=== PATIENT | female | born 1950 | race Caucasian/White ===

== ENCOUNTER 2025-01-23 16:41 | Inpatient (IN) ==
--- NOTE | 2025-01-23 16:47 | Emergency Department Note ---
Impression & Plan Fracture, humerus, proximal, Fall, Chronic anticoagulation, Hypocalcemia ED Provider Note NAME: BERNADETTE CASTELLANOS AGE: 74 SEX: F : 1950 ARRIVES VIA: Ambulance INFORMANT: [Patient][, ] ED PROVIDER(S): [Herbert Granado MD] CHIEF COMPLAINT: Fall, arm pain MEDICAL DECISION MAKING: Patient presents as an injury alert due to concern for fall and right arm pain. Primary and secondary surveys were completed. The patient was noted to have right shoulder and proximal arm pain. The patient has no head neck chest back or abdominal pain and no lower extremity pain or left upper extremity pain. Generally she requires any advanced imaging other than x-rays of the shoulder and humerus. Blood work was obtained along with an INR and the patient was ordered IV fentanyl 25 mcg and arm sling lidocaine patch and IV Ofirmev. Blood work shows a mild leukopenia with anemia with hemoglobin 9.2 with a normal platelet count. INR 2.4. Kidney function is unremarkable. Mild hypocalcemia 8.3. Upon reassessment patient had improvement in pain. Patient was noted to have an oblique fracture to the proximal humerus. I did speak with Adriel Carson PA-C with Dr. Bonner and after further discussion they recommend operative treatment which could be done inpatient versus outpatient. Patient lives by herself and is right-hand dominant. Patient would be significant risk at home likely incapable of doing many of her ADLs. I did speak with the on-call hospitalist service Dr. Hollingsworth and the patient was admitted to the medicine service. Orthopedic stated that the patient had an INR less than 1.8 the patient will be booked for an A3 case tomorrow morning. Patient was to be n.p.o. at midnight. These recommendations were conveyed to the inpatient hospitalist service. Discussion w/ other healthcare providers: Adriel Carson PA-C with Dr. Bonner orthopedics Dr. Hollingsworth inpatient medicine service Prior /Outside records reviewed: [none] Differential diagnosis: Fracture, dislocation, contusion, strain, sprain, ICH, hemothorax, intra- abdominal injury, anemia among other causes were considered. Diagnostics, as interpreted by me: ECG: [none] Cardiac monitoring: An order was placed for continuous cardiac monitoring. The monitor shows a rate of [] with [] rhythm. [Patient was placed on pulse oximetry] Medical decision rules: Nexus rule Imaging studies: [I informally interpreted the patient's right humerus x-ray does show proximal humerus fracture with oblique fracture with formal report to follow.] [] HPI: Patient presents due to concern for fall and arm injury. The patient was reportedly trying to get in her car when she fell striking the right shoulder and arm. The patient denies any head strike or LOC. She has had no head neck chest back or abdominal pain. No lower extremity pain and no left upper extremity pain. Patient does take Coumadin for known history of A-fib. The patient last took it this morning. Patient is right-hand dominant from the complaints of right shoulder pain. Patient has pain with range of motion and try to lift it. PAST MEDICAL HISTORY: [See Below] PAST SURGICAL HISTORY: [See Below] SOCIAL HISTORY: [See Below] HOME MEDICATIONS: [See Below] ALLERGIES: [See Below] VITALS: [See Below] PHYSICAL EXAMINATION: GENERAL: NAD, non-toxic. EYE EXAM: Normal conjunctiva. PERRL, no anisocoria and EOM's grossly intact w/o pain. Head: Normocephalic atraumatic. OROPHARYNX: Moist mucus membranes, grossly normal dentition. NECK: Trachea midline, no stridor. [Supple, no nuchal rigidity, no adenopathy, non-tender. No signs of meningismus. FROM of the neck with good chin to chest and neck extension.] No midline C-spine TTP LUNGS: Clear to auscultation. Normal chest wall mechanics. HEART: NSR, no MRG. ABDOMEN: Abdomen soft, non-tender, no masses, no rebound or guarding. BACK: No CVA TTP. No TTP. SKIN: No rashes and no bruising. UPPER EXTREMITIES: Upper extremities are grossly normal. 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 LOWER EXTREMITIES: Grossly normal, mild pretibial edema without calf pain or erythema. NEURO EXAM: A&O x3, cranial nerves II-XII grossly intact, normal speech, moves all 4 extremities. Past Med/Surg History Problem List (Updated 01/23/25 @ 19:45 by Herbert Granado MD) Hypocalcemia (Acute) Chronic anticoagulation (Acute) Fall (Acute) Fracture, humerus, proximal (Acute) GERD (gastroesophageal reflux disease) (Chronic) Homozygous for MTHFR gene mutation (Chronic) Osteoporosis (Chronic) Calculus of gallbladder (Chronic) Social History Smoking Status: Never smoker Preferred Language: Macedonian Communication Ability: Effective marital status: / current occupational status: retired Feels Safe at Home: Yes Allergies Allergies Allergy/AdvReac Type Severity Reaction Status Date / Time Fish Containing Products AdvReac Intermediate HEADACHE Verified 01/23/25 19:16 FROM SEAFOOD Home Meds Home Medications Medication Instructions Recorded Confirmed amlodipine 2.5 mg tablet 2.5 mg PO QAM 01/23/25 01/23/25 atorvastatin 40 mg tablet 40 mg PO QAM 01/23/25 01/23/25 cyanocobalamin (vitamin B-12) 1,000 mcg PO QAM 01/23/25 01/23/25 1,000 mcg tablet (Vitamin B-12) escitalopram oxalate 10 mg tablet 10 mg PO QAM 01/23/25 01/23/25 folic acid 1 mg tablet 1 mg PO QAM 01/23/25 01/23/25 furosemide 20 mg tablet 20 mg PO QAM 01/23/25 01/23/25 lisinopril 20 mg tablet 20 mg PO QAM 01/23/25 01/23/25 mirabegron 50 mg tablet,extended 50 mg PO QAM 01/23/25 01/23/25 release 24 hr (Myrbetriq) warfarin 5 mg tablet 2.5 mg PO 2XWK 01/23/25 01/23/25 warfarin 5 mg tablet 5 mg PO 5XWK 01/23/25 01/23/25 Results & Data (ED) Vital Signs Vital Signs - 24 hr 01/23/25 16:55 01/23/25 17:09 01/23/25 17:12 Temperature 36.8 C Temperature Source Skin Pulse Rate 75 60 Pulse Rate [Apical] 79 Respiratory Rate 20 20 Respiratory Effort / Characteristics Non-Labored Spontaneous Non-Labored Respiratory Depth Normal Normal Respiratory Pattern Blood Pressure 143/92 H Blood Pressure [Left Arm] 136/70 Blood Pressure Mean 109 Blood Pressure Mean [Left Arm] 92 Pulse Oximetry 92 93 Oxygen Delivery Method Room Air Room Air Oxygen Flow Rate Sepsis Recent Fever Within 48 Hours No Sepsis New/Unexplained Change in Mental Status No Sepsis Action Taken by Nursing No Action Required 01/23/25 17:30 01/23/25 18:00 01/23/25 19:00 Temperature Temperature Source Pulse Rate Pulse Rate [Apical] 76 58 L 54 L Respiratory Rate 20 18 19 Respiratory Effort / Characteristics Non-Labored Spontaneous Non-Labored Non-Labored Respiratory Depth Normal Normal Normal Respiratory Pattern Regular Blood Pressure Blood Pressure [Left Arm] 125/79 134/95 133/79 Blood Pressure Mean Blood Pressure Mean [Left Arm] 94 108 97 Pulse Oximetry 94 92 93 Oxygen Delivery Method Room Air Room Air Nasal Cannula Oxygen Flow Rate 2 Sepsis Recent Fever Within 48 Hours Sepsis New/Unexplained Change in Mental Status Sepsis Action Taken by [facility] Medications Current Medication List: was personally reviewed by me Laboratory Data Attestation: I reviewed the patient's lab results. 01/23/25 17:01 01/23/25 17:01 Lab Results 01/23/25 Range/Units 17:01 WBC 4.41 L (4.8-10.8) K/ul RBC 3.56 L (4.20-5.40) M/uL Hgb 11.2 L (12.0-16.0) g/dl Hct 33.9 L (37.0-47.0) % MCV 95.2 (80.0-100.0) fL MCH 31.5 (25.0-34.0) pg MCHC 33.0 (32.0-36.0) g/dL RDW Std Deviation 46.5 H (36.4-46.3) fL RDW Coeff of Guido 13.2 (11.5-14.5) % Plt Count 166 (130-400) K/uL MPV 10.2 (9.4-12.4) fL Immature Gran % (Auto) 0.9 % Neut % (Auto) 55.8 % Lymph % (Auto) 33.3 % Finney % (Auto) 7.5 % Eos % (Auto) 1.8 % Baso % (Auto) 0.7 % Neut # (Auto) 2.46 (1.40-6.50) K/uL Lymph # (Auto) 1.47 (1.20-3.40) K/uL Finney # (Auto) 0.33 (0.11-0.59) K/uL Eos # (Auto) 0.08 (0.00-0.50) K/uL Baso # (Auto) 0.03 (0.00-0.20) K/uL Immature Gran # (Auto) 0.04 (0.01-0.20) K/uL PT 24.0 H (9.0-12.0) Seconds INR 2.4 H (0.9-1.1) Sodium 143 (136-145) mmol/L Potassium 3.7 (3.5-5.1) mmol/L Chloride 108 H (98-107) mmol/L Carbon Dioxide 32 (21-32) mmol/L Anion Gap 3 (3-11) BUN 16 (6-23) mg/dl Creatinine 0.88 (0.6-1.2) mg/dl Est Cr Clr Drug Dosing 78.6 ml/min eGFR 68.49 BUN/Creatinine Ratio 18.2 (10-20) Glucose 120 H (70-99(Fasting)) mg/dl Calcium 8.3 L (8.6-10.3) mg/dl Administered Medications Discontinued Medications Fentanyl Citrate (Fentanyl Citrate Pf 100 Mcg/2 Ml Vial) 25 mcg IV NOW STA Stop: 01/23/25 16:54 Last Admin: 01/23/25 17:04 Dose: 25 mcg Documented By: SADI Acetaminophen (Ofirmev) 1,000 mg in 100 mls @ 400 mls/hr IV NOW STA Stop: 01/23/25 17:07 Last Infusion: 01/23/25 18:00 Dose: Infused Documented By: Admin: 01/23/25 17:03 Dose: 400 mls/hr Documented By: SADI Calcium Gluconate () 1,000 mg in 60 mls @ 240 mls/hr IV NOW STA Stop: 01/23/25 18:59 Last Admin: 01/23/25 18:57 Dose: 240 mls/hr Documented By: SADI Lidocaine (Lidocaine 5% 1 Patch) 1 patch TD NOW STA Stop: 01/23/25 16:54 Last Admin: 01/23/25 17:04 Dose: 1 patch Documented By: SADI Imaging Data Radiologist's Impression: Humerus X-Ray 01/23/25 16:53 EXAM: XR humerus RT 2V CLINICAL HISTORY: Upper arm trauma TECHNIQUE: X-ray images of the right humerus were obtained in anteroposterior (AP) and lateral projections. COMPARISON: No prior studies available for comparison. FINDINGS: Osteopenia Communuted displaced fracture of the proximal humeral shaft There is cortical stepping seen at the surgical neck of the humerus A radiolucent line is seen through the scapular blade may suggests a skin fold. CT study is suggested if wrranted clinically Soft Tissues: Moderate soft tissue edema around the fracture site. Additional Findings: Osteoarthritic changes of the glenohumeral joint. IMPRESSION: Comminuted displaced fracture of the proximal humeral shaft with asscoiated soft tissue swelling Fracture of the surgical neck of the humerus Disclaimer: A subtle bone abnormality or fracture may not be readily apparent on X-rays, thus clinical correlation and further imaging, including follow-up CT, MRI, or follow-up X-rays, are advised as needed. Electronically signed by Duane Thompson 01-23-2025 6:44 PM Shoulder X-Ray 01/23/25 16:53 EXAM: XR shoulder RT min 2V routine CLINICAL HISTORY: Shoulder trauma, no prior imaging TECHNIQUE: X-ray images of the right shoulder were obtained in anteroposterior (AP) and Y-view projections. COMPARISON: No prior studies available for comparison. FINDINGS: Osteopenia. Comminuted displaced fracture of the proximal humeral shaft. There is a cortical stepping/radiolucent line seen at the surgical neck of the humerus. A radiolucent line is seen through the scapular blade may suggests a skin fold. CT study is suggested if warranted clinically. No evidence of shoulder dislocation Soft Tissues: Moderate soft tissue edema around fracture site. Additional Findings: Osteoarthritic changes of the shoulder joint. IMPRESSION: 1. Comminuted displaced fracture of the proximal humeral shaft. 2. Fracture of the surgical neck of the humerus. 3. Moderate soft tissue swelling around the fracture site. 4. No shoulder dislocation. Disclaimer: A subtle bone abnormality or fracture may not be readily apparent on X-rays, thus clinical correlation and further imaging including follow-up CT, MRI, or follow-up X-rays are advised as needed. Electronically signed by Duane Thompson 01-23-2025 6:49 PM Discharge Plan Visit Data Chief Complaint: Fall ED Provider: Herbert Granado Discharge Problem: Fracture, humerus, proximal, Fall, Chronic anticoagulation, Hypocalcemia Forms Stand Alone Forms: Drug Response Dx Prescriptions Prescriptions: No Action atorvastatin 40 mg tablet 40 mg PO QAM lisinopril 20 mg tablet 20 mg PO QAM cyanocobalamin (vitamin B-12) [Vitamin B-12] 1,000 mcg Tablet 1,000 mcg PO QAM amlodipine 2.5 mg tablet 2.5 mg PO QAM warfarin 5 mg tablet 2.5 mg PO 2XWK Rx Instructions: TAKES MON & FRI MORNINGS. warfarin 5 mg tablet 5 mg PO 5XWK Rx Instructions: TAKES SUN, ES, WED, THURS & SAT MORNINGS folic acid 1 mg Tablet 1 mg PO QAM furosemide 20 mg tablet 20 mg PO QAM escitalopram oxalate 10 mg tablet 10 mg PO QAM mirabegron [Myrbetriq] 50 mg tablet extended release 24 hr 50 mg PO QAM Referrals Referrals: Hayden Lyman DO [Primary Care Provider] - Discharge Problem: Fracture, humerus, proximal Qualifiers: Encounter type: initial encounter Fracture type: closed Fracture morphology: o ther fracture Fracture alignment: displaced Laterality: right Qualified Code(s): S42.291A - Other displaced fracture of upper end of right humerus, initial encounter for closed fracture Fall Qualifiers: Encounter type: initial encounter Qualified Code(s): W19.XXXA - Unspecified fall, initial encounter
[2025-01-23] MEDS: ACETAMINOPHEN 1,000 MG/100 ML VIAL IV STA (17:03)
[2025-01-23] MEDS: fentaNYL citrate PF 100 MCG/2 ML VIAL IV STA (17:04)
[2025-01-23] MEDS: LIDOCAINE 5% 1 PATCH TD STA (17:04)
[2025-01-23 17:28] LABS: Basophils # (auto) 0.03 K/uL (0.00-0.20); Basophils % (auto) 0.7 %; Eosinophils # (auto) 0.08 K/uL (0.00-0.50); Eosinophils % (auto) 1.8 %; Hematocrit (blood only) 33.9 % (37.0-47.0); Hemoglobin 11.2 g/dl (12.0-16.0); Immature Granulocytes # (auto) 0.04 K/uL (0.01-0.20); Immature Granulocytes % (auto) 0.9 %; Lymphocytes # (auto) 1.47 K/uL (1.20-3.40); Lymphocytes % (auto) 33.3 %; Mean Corpuscular Hemoglobin 31.5 pg (25.0-34.0); Mean Corpuscular Volume 95.2 fL (80.0-100.0); Mean Platelet Volume 10.2 fL (9.4-12.4); Monocytes # (auto) 0.33 K/uL (0.11-0.59); Monocytes % (auto) 7.5 %; Neutrophils # (auto) 2.46 K/uL (1.40-6.50); Neutrophils % (auto) 55.8 %; Platelet Count 166 K/uL (130-400); RDW Coefficient of Variation 13.2 % (11.5-14.5); RDW Standard Deviation 46.5 fL (36.4-46.3); Red Blood Count 3.56 M/uL (4.20-5.40); White Blood Count 4.41 K/ul (4.8-10.8)
[2025-01-23 17:45] LABS: BUN Creatinine Ratio 18.2 (10-20); Calcium 8.3 mg/dl (8.6-10.3); Creatinine Clr Calc Pharmacy 78.6 ml/min; Potassium 3.7 mmol/L (3.5-5.1)
[2025-01-23 17:59] LABS: INR 2.4 (0.9-1.1)
--- NOTE | 2025-01-23 18:44 | XRay Report ---
EXAM: XR humerus RT 2V CLINICAL HISTORY: Upper arm trauma TECHNIQUE: X-ray images of the right humerus were obtained in anteroposterior (AP) and lateral projections. COMPARISON: No prior studies available for comparison. FINDINGS: Osteopenia Communuted displaced fracture of the proximal humeral shaft There is cortical stepping seen at the surgical neck of the humerus A radiolucent line is seen through the scapular blade may suggests a skin fold. CT study is suggested if wrranted clinically Soft Tissues: Moderate soft tissue edema around the fracture site. Additional Findings: Osteoarthritic changes of the glenohumeral joint. IMPRESSION: Comminuted displaced fracture of the proximal humeral shaft with asscoiated soft tissue swelling Fracture of the surgical neck of the humerus Disclaimer: A subtle bone abnormality or fracture may not be readily apparent on X-rays, thus clinical correlation and further imaging, including follow-up CT, MRI, or follow-up X-rays, are advised as needed. Electronically signed by Duane Thompson 01-23-2025 6:44 PM
--- NOTE | 2025-01-23 18:50 | XRay Report ---
EXAM: XR shoulder RT min 2V routine CLINICAL HISTORY: Shoulder trauma, no prior imaging TECHNIQUE: X-ray images of the right shoulder were obtained in anteroposterior (AP) and Y-view projections. COMPARISON: No prior studies available for comparison. FINDINGS: Osteopenia. Comminuted displaced fracture of the proximal humeral shaft. There is a cortical stepping/radiolucent line seen at the surgical neck of the humerus. A radiolucent line is seen through the scapular blade may suggests a skin fold. CT study is suggested if warranted clinically. No evidence of shoulder dislocation Soft Tissues: Moderate soft tissue edema around fracture site. Additional Findings: Osteoarthritic changes of the shoulder joint. IMPRESSION: 1. Comminuted displaced fracture of the proximal humeral shaft. 2. Fracture of the surgical neck of the humerus. 3. Moderate soft tissue swelling around the fracture site. 4. No shoulder dislocation. Disclaimer: A subtle bone abnormality or fracture may not be readily apparent on X-rays, thus clinical correlation and further imaging including follow-up CT, MRI, or follow-up X-rays are advised as needed. Electronically signed by Duane Thompson 01-23-2025 6:49 PM
[2025-01-23] MEDS: CALCIUM GLUCONATE 1,000 MG/60 ML BAG IV STA (18:57)
--- NOTE | 2025-01-23 19:51 | Anesthesiology Consultation ---
Date of Service January 23, 2025 Assessment & Plan Chart Review Chart Review: Acceptable Risk for Surgery (Pending improvement in elevated INR.) Consults Requested none History Height/Weight Height: 5 ft 7 in Weight: 133 kg Allergies Allergy/AdvReac Type Severity Reaction Status Date / Time Fish Containing Products AdvReac Intermediate HEADACHE Verified 01/23/25 19:16 FROM SEAFOOD Medications Home Medications Medication Instructions Recorded Confirmed Last Taken amlodipine 2.5 mg tablet 2.5 mg PO QAM 01/23/25 01/23/25 01/23/25 atorvastatin 40 mg tablet 40 mg PO QAM 01/23/25 01/23/25 01/23/25 cyanocobalamin (vitamin B-12) 1,000 mcg PO QAM 01/23/25 01/23/25 01/23/25 1,000 mcg tablet (Vitamin B-12) escitalopram oxalate 10 mg tablet 10 mg PO QAM 01/23/25 01/23/25 01/23/25 folic acid 1 mg tablet 1 mg PO QAM 01/23/25 01/23/25 01/23/25 furosemide 20 mg tablet 20 mg PO QAM 01/23/25 01/23/25 01/23/25 lisinopril 20 mg tablet 20 mg PO QAM 01/23/25 01/23/25 01/23/25 mirabegron 50 mg tablet,extended 50 mg PO QAM 01/23/25 01/23/25 01/23/25 release 24 hr (Myrbetriq) warfarin 5 mg tablet 2.5 mg PO 2XWK 01/23/25 01/23/25 01/23/25 warfarin 5 mg tablet 5 mg PO 5XWK 01/23/25 01/23/25 01/22/25 Social History Smoking Status: Never smoker Physical Exam Vital Signs Last Vital Signs Temp 36.8 C 01/23/25 16:55 Pulse 54 L 01/23/25 19:00 Resp 19 01/23/25 19:00 BP 133/79 01/23/25 19:00 Pulse Ox 93 01/23/25 19:00 O2 Del Method Nasal Cannula 01/23/25 19:00 O2 Flow Rate 2 01/23/25 19:00 Testing Laboratory Results 01/23/25 17:01 01/23/25 17:01 PT 24.0 Seconds (9.0-12.0) H 01/23/25 17:01 INR 2.4 (0.9-1.1) H 01/23/25 17:01
[2025-01-23] MEDS: PHYTONADIONE 5 MG in DEXTROSE 5% 50 ML IV ONE (20:09)
--- NOTE | 2025-01-23 20:18 | History & Physical Report ---
Date of Service January 23, 2025 Assessment & Plan (1) Fracture, humerus, proximal: Plan: 74-year-old female with past medical history significant for multiple thyroid nodules, dyslipidemia, homozygous MTHFR mutation, obesity hypoventilation syndrome, obstructive sleep apnea noncompliant with CPAP, hypertension, morbid obesity, GERD, calculus of gallbladder without cholecystitis, urge incontinence, female stress incontinence, osteoporosis, history of pulmonary embolism, depression is status post fall and right humerus fracture. Patient was coming out of the [facility] after shopping and she was carrying a light bag and she thinks she tripped over the curb and she fell on the right shoulder. Did not hit her head. No loss of consciousness. Was not able to get up. Ambulance was called and patient was brought to the hospital. Denies any chest pain prior to fall. Denies any dizziness or blurred vision or nausea or palpitations prior to fall. Currently hemodynamics are okay. Denies any headache. No runny nose or sore throat. Has some cough. No fevers. Denies chest pain or shortness of breath currently. No nausea. No abdominal pain. Normal bowel and bladder movements. Eating and drinking okay. No rash. Prior to fall patient says she could ambulate 1-2 blocks without stopping. Fracture humerus proximal Status post mechanical fall Commuted displaced fracture of proximal humeral shaft with associated soft tissue swelling. Fracture of the surgical neck of the humerus. Pain control N.p.o. to midnight, gentle fluids Ortho consult for recommendation Will get chest x-ray and EKG preop if they are okay patient should be acceptable risk to proceed with surgery History of pulmonary embolism History of homozygous MTHFR mutation Patient says last time she had PE was about 7 years ago INR is 2.4 today Patient getting IV vitamin K in anticipation of surgery tomorrow Holding Coumadin Restart Coumadin as soon as possible Morbid obesity Obstructive sleep apnea Patient states not using his CPAP Patient does not want to use CPAP in the hospital ,is okay to be on oxygen while sleeping Counseling Hypertension On amlodipine Holding lisinopril and will restart post op IV hydralazine as needed Hyperlipidemia On statin Lower extremity edema On Lasix which is held for now restart as soon as possible Check lower extremity Dopplers Can get echo Urgent continence Myrbetriq Depression On Lexapro Hypocalcemia Calcium 8.3 Received IV calcium in the ER Will check vitamin D and follow repeat labs will order supplements DVT prophylaxis SCDs for now Disposition Medical floor Full code. History of Present Illness Chief Complaint: Status post fall and right humerus fracture Primary Care Provider: Hayden Lyman DO 74-year-old female with past medical history significant for multiple thyroid nodules, dyslipidemia, homozygous MTHFR mutation, obesity hypoventilation syndrome, obstructive sleep apnea noncompliant with CPAP, hypertension, morbid obesity, GERD, calculus of gallbladder without cholecystitis, urge incontinence, female stress incontinence, osteoporosis, history of pulmonary embolism, depression is status post fall and right humerus fracture. [facility] and she was carrying a light bag and she thinks she tripped over the curb and she fell on the right shoulder. Did not hit her head. No loss of consciousness. Was not able to get up. Ambulance was called and patient was brought to the hospital. Denies any chest pain prior to fall. Denies any dizziness or blurred vision or nausea or palpitations prior to fall. Currently hemodynamics are okay. Denies any headache. No runny nose or sore throat. Has some cough. No fevers. Denies chest pain or shortness of breath currently. No nausea. No abdominal pain. Normal bowel and bladder movements. Eating and drinking okay. No rash. Prior to fall patient says she could ambulate 1-2 blocks without stopping. Past medical history as mentioned above Past surgical history. Bladder cath insertion. Left breast lesion excision. Cystoscopy. Tonsillectomy. Repair of bladder defect. Total abdominal hysterectomy with removal of tubes. Social history. . No smoking. Alcohol rare wine. No drug use. Family history. Mother had Alzheimer's disease. Father had diabetes. Brother had prostate cancer. Brother had angioplasty. Granddaughter had breast cancer. Allergies Allergy/AdvReac Type Severity Reaction Status Date / Time Fish Containing Products AdvReac Intermediate HEADACHE Verified 01/23/25 19:16 FROM SEAFOOD Home Medications Medication Instructions Recorded Confirmed Type amlodipine 2.5 mg tablet 2.5 mg PO QAM 01/23/25 01/23/25 History atorvastatin 40 mg tablet 40 mg PO QAM 01/23/25 01/23/25 History cyanocobalamin (vitamin B-12) 1,000 mcg PO QAM 01/23/25 01/23/25 History 1,000 mcg tablet (Vitamin B-12) escitalopram oxalate 10 mg tablet 10 mg PO QAM 01/23/25 01/23/25 History folic acid 1 mg tablet 1 mg PO QAM 01/23/25 01/23/25 History furosemide 20 mg tablet 20 mg PO QAM 01/23/25 01/23/25 History lisinopril 20 mg tablet 20 mg PO QAM 01/23/25 01/23/25 History mirabegron 50 mg tablet,extended 50 mg PO QAM 01/23/25 01/23/25 History release 24 hr (Myrbetriq) warfarin 5 mg tablet 2.5 mg PO 2XWK 01/23/25 01/23/25 History warfarin 5 mg tablet 5 mg PO 5XWK 01/23/25 01/23/25 History Past Med/Surg History Problem List (Updated 01/24/25 @ 08:11 by Adriel Carson PA-C) Fall with significant injury Hypocalcemia (Acute) Fall (Acute) Fracture, humerus, proximal (Acute) Medical History Chronic anticoagulation History of pulmonary embolism Homozygous for MTHFR gene mutation Calculus of gallbladder GERD (gastroesophageal reflux disease) Osteoporosis Hyperlipidemia (11/11/11) Benign hypertension (11/11/11) Stress incontinence Depression Urge incontinence Morbid obesity Obstructive sleep apnea Obesity hypoventilation syndrome Thyroid nodule Social History Smoking Status: Never smoker Second Hand Exposure: No; Do You Dip or Chew Tobacco: No; Tobacco Cessation Education Requested by Patient: No Hx Alcohol Use: No Hx Substance Use: No Preferred Language: Serbian Communication Ability: Effective Top Knitter Required: No Beliefs That Will Affect Care: None marital status: / Current Living Situation: Alone current occupational status: retired Other Information That Helps Us Care for You: No Feels Safe at Home: Yes Assistive Devices: None Review of Systems Review of Systems: All systems reviewed & are unremarkable except as noted in HPI & below Physical Exam Physical Exam: General- Not in distress Head- atraumatic Eyes- PERRL. ENT- oropharynx clear Neck- supple, no JVD. Lungs- clear to auscultation no wheezing or crackles Heart- regular rhythm; no murmur, no gallop. Abdomen- normal bowel sounds, soft, nontender, no distension Extremities- right upper ext in sling. bilateral lower extremity edema present Neuro- alert, oriented PERRL, no facial palsy; no dysarthria; obeys simple commands. Results & Data Results & Data Vital Signs (Past 12 Hours) Vital Signs Temp Pulse Pulse Resp BP BP Pulse Ox 01/23/25 20:00 78 19 137/95 99 01/23/25 19:00 54 L 19 133/79 93 01/23/25 18:00 58 L 18 134/95 92 01/23/25 17:30 76 20 125/79 94 01/23/25 17:12 79 20 136/70 93 01/23/25 17:09 60 01/23/25 16:55 36.8 C 75 20 143/92 H 92 O2 Del Method O2 Flow Rate 01/23/25 20:00 Nasal Cannula 2 01/23/25 19:00 Nasal Cannula 2 01/23/25 18:00 Room Air 01/23/25 17:30 Room Air 01/23/25 17:12 Room Air 01/23/25 17:09 01/23/25 16:55 Room Air Diagnostic Findings Laboratory Results WBC 4.41 K/ul (4.8-10.8) L 01/23/25 17:01 RBC 3.56 M/uL (4.20-5.40) L 01/23/25 17:01 Hgb 11.2 g/dl (12.0-16.0) L 01/23/25 17:01 Hct 33.9 % (37.0-47.0) L 01/23/25 17:01 MCV 95.2 fL (80.0-100.0) 01/23/25 17:01 MCH 31.5 pg (25.0-34.0) 01/23/25 17:01 MCHC 33.0 g/dL (32.0-36.0) 01/23/25 17:01 RDW Std Deviation 46.5 fL (36.4-46.3) H 01/23/25 17:01 RDW Coeff of Guido 13.2 % (11.5-14.5) 01/23/25 17:01 Plt Count 166 K/uL (130-400) 01/23/25 17:01 MPV 10.2 fL (9.4-12.4) 01/23/25 17:01 Immature Gran % (Auto) 0.9 % 01/23/25 17:01 Neut % (Auto) 55.8 % 01/23/25 17:01 Lymph % (Auto) 33.3 % 01/23/25 17:01 [place] % (Auto) 7.5 % 01/23/25 17:01 Eos % (Auto) 1.8 % 01/23/25 17:01 Baso % (Auto) 0.7 % 01/23/25 17:01 Neut # (Auto) 2.46 K/uL (1.40-6.50) 01/23/25 17:01 Lymph # (Auto) 1.47 K/uL (1.20-3.40) 01/23/25 17:01 [place] # (Auto) 0.33 K/uL (0.11-0.59) 01/23/25 17:01 Eos # (Auto) 0.08 K/uL (0.00-0.50) 01/23/25 17:01 Baso # (Auto) 0.03 K/uL (0.00-0.20) 01/23/25 17:01 Immature Gran # (Auto) 0.04 K/uL (0.01-0.20) 01/23/25 17:01 PT 24.0 Seconds (9.0-12.0) H 01/23/25 17:01 INR 2.4 (0.9-1.1) H 01/23/25 17:01 Sodium 143 mmol/L (136-145) 01/23/25 17:01 Potassium 3.7 mmol/L (3.5-5.1) 01/23/25 17:01 Chloride 108 mmol/L (98-107) H 01/23/25 17:01 Carbon Dioxide 32 mmol/L (21-32) 01/23/25 17:01 Anion Gap 3 (3-11) 01/23/25 17:01 BUN 16 mg/dl (6-23) 01/23/25 17:01 Creatinine 0.88 mg/dl (0.6-1.2) 01/23/25 17:01 Est Cr Clr Drug Dosing 78.6 ml/min 01/23/25 17:01 eGFR 68.49 01/23/25 17:01 BUN/Creatinine Ratio 18.2 (10-20) 01/23/25 17:01 Glucose 120 mg/dl (70-99(Fasting)) H 01/23/25 17:01 Calcium 8.3 mg/dl (8.6-10.3) L 01/23/25 17:01 Impressions Humerus X-Ray 01/23/25 16:53 EXAM: XR humerus RT 2V CLINICAL HISTORY: Upper arm trauma TECHNIQUE: X-ray images of the right humerus were obtained in anteroposterior (AP) and lateral projections. COMPARISON: No prior studies available for comparison. FINDINGS: Osteopenia Communuted displaced fracture of the proximal humeral shaft There is cortical stepping seen at the surgical neck of the humerus A radiolucent line is seen through the scapular blade may suggests a skin fold. CT study is suggested if wrranted clinically Soft Tissues: Moderate soft tissue edema around the fracture site. Additional Findings: Osteoarthritic changes of the glenohumeral joint. IMPRESSION: Comminuted displaced fracture of the proximal humeral shaft with asscoiated soft tissue swelling Fracture of the surgical neck of the humerus Disclaimer: A subtle bone abnormality or fracture may not be readily apparent on X-rays, thus clinical correlation and further imaging, including follow-up CT, MRI, or follow-up X-rays, are advised as needed. Electronically signed by Duane Thompson 01-23-2025 6:44 PM Shoulder X-Ray 01/23/25 16:53 EXAM: XR shoulder RT min 2V routine CLINICAL HISTORY: Shoulder trauma, no prior imaging TECHNIQUE: X-ray images of the right shoulder were obtained in anteroposterior (AP) and Y-view projections. COMPARISON: No prior studies available for comparison. FINDINGS: Osteopenia. Comminuted displaced fracture of the proximal humeral shaft. There is a cortical stepping/radiolucent line seen at the surgical neck of the humerus. A radiolucent line is seen through the scapular blade may suggests a skin fold. CT study is suggested if warranted clinically. No evidence of shoulder dislocation Soft Tissues: Moderate soft tissue edema around fracture site. Additional Findings: Osteoarthritic changes of the shoulder joint. IMPRESSION: 1. Comminuted displaced fracture of the proximal humeral shaft. 2. Fracture of the surgical neck of the humerus. 3. Moderate soft tissue swelling around the fracture site. 4. No shoulder dislocation. Disclaimer: A subtle bone abnormality or fracture may not be readily apparent on X-rays, thus clinical correlation and further imaging including follow-up CT, MRI, or follow-up X-rays are advised as needed. Electronically signed by Duane Thompson 01-23-2025 6:49 PM Code Status & VTE Plan VTE Prophylaxis Plan VTE Prophylaxis will be ordered: Yes (1) Fracture, humerus, proximal Encounter type: initial encounter Fracture alignment: displaced Fracture morphology: other fracture Fracture type: closed Laterality: right Qualified Code(s): S42.291A - Other displaced fracture of upper end of right humerus, initial encounter for closed fracture
[2025-01-23] MEDS ORDERED: ACETAMINOPHEN 1,000 MG/100 ML VIAL IV PRN (22:23)
[2025-01-23] MEDS ORDERED: ONDANSETRON INJ 2 MG/ML 2 ML VIAL IV PRN (22:23)
[2025-01-23] MEDS ORDERED: HYDROmorphone INJ 0.5 MG/0.5 ML SYR IV PRN ×2 (22:23)
--- NOTE | 2025-01-23 23:42 | XRay Report ---
Exam(s): XR CXR 1 VIEW EXAM: XR Chest, 1 View CLINICAL HISTORY: Preop TECHNIQUE: Frontal view of the chest. COMPARISON: Chest radiograph 10/06/2022 FINDINGS: Lungs: Interstitial prominence could represent atelectasis, pulmonary edema or atypical infection. Pleural space: Unremarkable. No pneumothorax. Heart: Cardiomegaly. Mediastinum: Unremarkable. Normal mediastinal contour. Bones/joints: There are degenerative changes of the spine. No acute fracture. IMPRESSION: 1. Interstitial prominence could represent atelectasis, pulmonary edema or atypical infection. 2. Cardiomegaly. Electronically signed by: Veronica Leon MD 01/23/25 23:42 PM
[2025-01-23] MEDS: LACTATED RINGER'S 1,000 ML IV SCH (23:47)
--- NOTE | 2025-01-24 01:15 | Ultrasound Report ---
Exam(s): US VENOUS BILATERAL LOWER EXTREMITIES EXAM: US Duplex Bilateral Lower Extremities Veins CLINICAL HISTORY: Edema TECHNIQUE: Real-time duplex ultrasound scan of the bilateral lower extremity veins integrating B-mode two-dimensional vascular structure, Doppler spectral analysis, color flow Doppler imaging and compression. COMPARISON: No relevant prior studies available. FINDINGS: Right deep veins: Unremarkable. No Deep vein thrombosis in the right common femoral, femoral, proximal deep femoral or popliteal veins. The veins demonstrate normal color flow, are normally compressible, with normal phasic flow and/or augmentation response. Right superficial veins: Unremarkable. No thrombus in the visualized right great saphenous vein. Left deep veins: Unremarkable. No Deep vein thrombosis in the left common femoral, femoral, proximal deep femoral or popliteal veins. The veins demonstrate normal color flow, are normally compressible, with normal phasic flow and/or augmentation response. Left superficial veins: Unremarkable. No thrombus in the visualized left great saphenous vein. Soft tissues: Nonspecific subcutaneous edema bilaterally. No popliteal cyst. IMPRESSION: 1. Nonspecific subcutaneous edema bilaterally. 2. No deep vein thrombosis of either lower extremity. Electronically signed by: Veronica Leon MD 01/24/25 01:15 AM
--- OUTSIDE RECORDS SUMMARY | 2025-01-24 02:18 | External Medical Summary | Summary of Care ---
Author Name Unknown Organization [facility] Address [address] [facility] [place] [address] Phone [phone] Care Team Providers Care Complementary Health Therapists Name Role Phone Hayden Lyman DO Primary Care Provider Reason for Visit * Reason Comments Dosage Adjustment In Person (Anticoag Cl inic) Encounter Details Date Type Department Care Team (Latest Contact Info) Description 12/31/2024 2:50 PM EDT Anticoagulation Pharmacy, [facility] [address] [facility] [place] [address] Pharmacist1, [facility] [address] [facility] [place] [address] History of pulmonary embolism*; Anticoagulation management encounter Allergies No known active allergiesdocumented as of this encounter (statuses as of 01/02/2025) Medications Cyanocobalamin (B-12) 1000 MCG CapsuleIndication s:MTHFR mutation,Elevated homocysteine Take 1 Cap by mouth daily. 100 Cap 11 8 Active Alendronate Sodium 70 MG Oral Tablet (Fosamax) Take 1 Tablet by mouth once a week. with 8 oz. water 30 minutes before first meal of the day. Remain upright for 30 min after taking tablet 5 Tablet 11 3 Active Escitalopram Oxalate 10 MG Oral Tablet (Lexapro)Indicati ons:Mild episode of recurrent major depressive disorder (HCC) Take 1 Tablet by mouth in the morning. 30 Tablet 5 10/15/2024 2:04 PM EST 4 Active Neomycin-Polymyxi n-HC Ophthalmic Suspension Instill 1 Drop into affected eye in the morning, 1 Drop at noon, 1 Drop in the evening and 1 Drop before bedtime 7.5 mL 07/09/2024 7:43 AM EDT 4 Active Additional Information Patient not taking.Reported on 12/11/2024 Lisinopril 20 MG Oral Tablet (Prinivil)Indicat ions:HTN, goal below 140/90 Take 1 Tablet by mouth in the morning. 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 100 Tablet 1 11/20/2024 3:44 PM EST 4 Active amLODIPine Besylate 2.5 MG Oral Tablet (Norvasc)Indicati ons:HTN, goal below 140/90 Take 1 Tablet by mouth in the morning. 90 Tablet 3 10/15/2024 2:04 PM EST 5 Active Furosemide 20 MG Oral Tablet (Lasix)Indication s:HTN, goal below 140/90 Take 1 Tablet by mouth in the morning. 90 Tablet 10/24/2024 11:24 AM EST 5 Active Atorvastatin Calcium 40 MG Oral Tablet (Lipitor)Indicati ons:Dyslipidemia, goal LDL below 130 Take 1 Tablet by mouth in the morning. 90 Tablet 10/24/2024 11:24 AM EST 5 Active Folic Acid 1 MG Oral TabletIndications :MTHFR mutation,Elevated homocysteine Take 1 Tablet by mouth in the morning 90 Tablet 1 11/26/2024 4:44 PM EST 5 Active Mirabegron ER 50 MG Oral Tablet Extended Release 24 Hour (Myrbetriq) Take 1 Tablet by mouth in the morning. 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 10/07/2015 Calculus of gallbladder with out cholecystitis without obstruction 04/23/2015 Dyslipidemia, goal LDL below 130 04/08/2014 Multiple thyroid nodules 09/17/2013 History of pulmonary embolism 03/27/2013 GERD (gastroesophageal reflux disease) 2 Elevated homocysteine 11/30/2011 Overview (04/23/2015): MTHFR 1298C mutation homozygous, treated with B12 and folate Urge incontinence 10/29/2008 Female stress incontinence 10/29/2008 HTN, goal below 140/90 11/20/2002 documented as of this encounter (statuses as of 01/02/2025) Resolved Problems Problem Noted Date Diagnosed Date Resolved Date Cholelithiasis 03/28/2012 04/23/2015 MTHFR mutation 12/27/2011 10/07/2015 Overview (12/27/2011): Homozygous 1298C mutation Pulmonary embolus 11/23/2011 03/27/2013 Overview (02/05/2013): Hospitalized at [facility] 11/2011 Swelling, mass, or lump in chest 11/23/2011 08/01/2017 Routine medical exam 11/20/2011 018 half-way current use of ant icoagulant therapy 11/20/2011 02/05/2013 Overview (07/02/2017): ICD-10 update of inactive term Obesity, morbid (more than 1 00 lbs over ideal weight or BMI > 40) 12/28/2009 06/24/2024 Overview (06/24/2024): Per Obesity Taxonomy ICD-10 update of inactive term historical Nausea with vomiting 07/15/2009 012 Floaters 07/20/2008 08/01/2017 ADVANCE DIRECTIVE INFORMATION 04/20/2005 04/24/2018 Overview (04/20/2005): No, Advance Directive brochure offered , patient declined. Dyslipidemia, goal to be determined 12/17/2002 04/08/2014 OBESITY, UNSPECIFIED 11/20/2002 010 Overview (12/28/2009): Per Obesity Taxonomy Other osteoporosis without c urrent pathological fracture 05/14/2020 Overview (07/24/2017): ICD-10 update of inactive term documented as of this encounter (statuses as of 01/02/2025) Immunizations Name Administration Dates Next Due COVID-19 mRNA, LNP-s, No Pre serve, 2-Dose Series (Moderna) 11/22/2020,10/25/2020 Covid-19, Mrna, Lnp-s, Pf, B ivalent, 50 Mcg, IM, 12 yrs and above (Moderna) 07/28/2022 PPD 06/26/2022,03/23/2021,05/14/2019 Pneumococcal Conjugate Vacc, 13 Valent (Prevnar) 10/14/2014 Pneumococcal Polysaccharide PPV23 (Pneumovax) 07/12/2016,06/24/2009 Seasonal Influenza Vac., MDV , IM, 0.5 mL (Fluzone) 10/14/2014,08/05/2012,06/24/2009,07/17(Deferred: Patient Refused) Seasonal Influenza, High Dos e, Trivalent, PF, IM (Fluzone HD) 07/02/2024 Seasonal Influenza, PF, 6 M & above, IM , (FluLaval or Fluzone) 06/25/2020,08/14/2018 Seasonal Influenza, Quadriva lent Hd (Fluzone Hd) 07/04/2023,06/13/2022,07/08/2021 Seasonal Influenza, Quadriva lent, No Preserve, IM 07/12/2016,10/07/2015 Seasonal Influenza, Trivalen t, Adjuvanted, 65+ YRS, PF, (Fluad) 11/19/2019 TD, Preservative Free 05/19/2019 TDAP, Age 7 and older, IM (Adacel) 02/19/2009 documented as of this encounter Social History Tobacco Use Types Packs/Day Years Used Date Smoking Tobacco: Never Smokeless Tobacco: Never Alcohol Use Standard Drinks/Week Comments No 0 (1 standard drink = 0.6 oz pur e alcohol) rare wine PHQ-2 Answer Date Recorded PHQ Adult Total Score 2 08/04/2022 Hunger Vital Sign Answer Date Recorded Within the past 12 months, y ou worried that your food would run out before you got the money to buy more. Never true 02/12/20 24 Within the past 12 months, t he food you bought just didn't last and you didn't have money to get more. Never true 02/12/2024 Childcare Answer Date Recorded Do you feel overwhelmed with taking care of a child, family member or friend? No 02/12/2024 Does your family need help f inding childcare? (Household - for ages 0-17 years) Not on file 02/12/2024 Clothing Answer Date Recorded Have you been unable to get clothing when it was really needed? No 02/12/2024 Is your family able to get c lothes or diapers when needed? (Household - for ages 0-17 years) Not on file 02/12/2024 Personal Safety Answer Date Recorded Do you feel unsafe or have concerns for your saf ety? No 02/12/2024 Do you have concerns for you r family's safety? (Household - for ages 0-17 years) Not on file 02/12/2024 Utilities Answer Date Recorded Do you have trouble paying y our heating, water, or electric bill? No 02/12/2024 Is your family able to pay t he heat, water, or electric bill? (Household - for ages 0-17 years) Not on file 02/12/2024 Does your family have access to good internet? (Household - for ages 0-17 years) Not on file 02/12/2024 Employment Status Answer Date Recorded Are you unemployed or without regular income? No 02/12/2024 Does the household have a re gular source of income? (Household - for ages 0-17 years) Not on file 02/12/2024 Social Connections Answer Date Recorded How often do you feel lonely or isolated from th ose around you? Rarely 02/12/2024 Financial Resource Strain Answer Date R ecorded Do you have any trouble payi ng for your medications, or do you think you might in the future? No 02/12/2024 Does your family have troubl e paying for medicine? (Household - for ages 0-17 years) Not on file 02/12/2024 Transportation Needs Answer Date Record ed READ ONLY Do you have troubl e getting a ride to medical visits or work? Never True 02/12/2024 Does your family have a hard time getting a ride to doctors visits? (Household - for ages 0-17 years) Not on file 02/12/2024 Has lack of transportation k ept you from medical appointments, meetings, work, or from getting things needed for daily living? Check all that apply. (Adult - for ages 18 years and over) Not on file 02/12/2024 Do you (or your family) have trouble finding or paying for a ride (transportation)? (Household - for ages 0-17 years) Not on file 02/12/2024 Housing Stability Answer Date Recorded Do you currently live in a s helter or have no steady place to sleep at night? No 02/12/2024 READ ONLY Do you think you a re at risk of becoming homeless? No 02/12/2024 Does your family worry about paying for your home or becoming homeless? (Household - for ages 0-17 years) Not on file 0 02/12/2024 Are you homeless or worried that you might be in the future? (Adult - for ages 18 years and over) Not on file Are you (or your family) brooks eless or worried that you might be in the future? (Household - for ages 0-17 years) Not on file Food Insecurity Answer Date Recorded Do you need food for this week? No 02/12/2024 Are you able to get enough f ood for your family? (Household - for ages 0-17 years) Not on file 02/12/2024 Does your family need food t his week? (Household - for ages 0-17 years) Not on file 02/12/2024 Do you always have enough fo od for your family? (Household - for ages 0-17 years) Not on file 02/12/2024 Food Insecurity Answer Date Recorded Within the past 12 months, y ou worried that your food would run out before you got the money to buy more. Never true 02/12/20 24 Within the past 12 months, t he food you bought just didn't last and you didn't have money to get more. Never true 02/12/2024 Do you need food for this week? 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 Details: [email or web address] Reply 1 to confirm or 3 to cancel. Reply STOP to opt out. 12/28/2024 08:22 AM EDT Text Message (Outgoing) [phone] [facility]: Jenniffer, you have an upcoming visit on 12/31 at 2:50 PM. Details: [email or web address] Reply 1 to confirm or 3 to cancel. Reply STOP to opt out. 12/30/2024 08:33 AM EDT Text Message (Outgoing) [phone] [facility]: Jenniffer, you have an upcoming visit on 12/31 at 2:50 PM. Details: [email or web address] Reply 1 to confirm or 3 to cancel. Reply STOP to opt out. 12/31/2024 12:50 PM EDT Email SMS () [phone] Patient not accepting updates 12/31/2024 02:35 PM EDT Text Message (Outgoing) [phone] [facility]: Jenniffer, are you at the clinic office receptionist area for your appointment on 12/31/2024 at 2:50 PM at [address] [place] [address]? Reply 12 if you're here. Reply 22 for more options. Reply STOP to opt out. Patient-Reported Symptoms: Patient Findings Negatives: Signs/symptoms of thrombosis, Signs/symptoms of bleeding, Change in health, Change in alcohol use, Change in activity, Upcoming invasive procedure, Missed doses, Extra doses, Change in medications, Change in diet/appetite, Bruising Objective Current Warfarin Dose As of 12/31/2024 Warfarin maintenance plan: 2.5 mg (5 mg x 0.5) every Mon, Fri; 5 mg (5 mg x 1) all other days INR Result As of 12/31/2024 INR goal: 2.0-3.0 INR used for dosin.8 Assessment & Plan Warfarin Plan As of 12/31/2024 Full warfarin instructions: 2.5 mg every Mon, Fri; 5 mg all other days No change documented: Иван Little RPh Next INR check: 02/11/2025 Repeat PT/INR in 6 week(s) Weekly dose: not changed Additional Dosing Information: Description (Takes 9:30 AM) I spent a total of 10-19 minutes (exact time 13 mins) on the date of service in preparation, delivery, and documentation of the care provided to Jenniffer Dumont excluding any time spent in the performance of separately billed services or time spent by another provider/QHP. Иван Chin RPh Clinical Pharmacist 12/31/2024, 2:57 PM documented in this encounter Plan of Treatment Upcoming Encounters Date Type Department Care Team (Late st Contact Info) Description 01/28/2025 3:00 PM EDT Office Visit Family Practice [facility] [address] [facility] [place] [address] Hayden Lyman, [address] [facility] [place] [facility] [place] [address] 2025 2:40 PM EDT Anticoagulation Pharmacy, [facility] [address] [facility] [place] [address] Pharmacist1, [facility] [address] [facility] [place] [address] 04/09/2025 11:00 AM EDT Office Visit Urogynecology [facility] [address] [place] [address] Марина Childress PA-C [address] [place] [address] 06/18/2025 10:00 AM EDT Office Visit Cardiology, [facility] [address] [place] [phone] Yumiko Collazo CRNP [address] [place] [address] Health Maintenance Due Date Last Done Comments Depression Monitoring 1961 Zoster Vaccines (1 of 2) 1999 Adult Wellness Visit 08/04/2023 08/04/2022, 03/22/20 21 COVID-19 Vaccine ( season) 2024 07/28/2022, 11/22/2020, 10/25/2020 DXA Scan 10/24/2024 10/24/2022, 10/02, 12/02/2014, Additional history exists Albumin/Creatinine Ratio 06/26/2025 06/26/2022 GFR 11/07/2025 11/07/2024, 06/02, 10/27/2022, Additional history exists DTap/Tdap Vaccines (3 - Td or Tdap) 05/19/2029 05/19/2019, 02/19/2009 VITAMIN D LEVEL ONCE IN A LIFETIME-USE SMARTSET# [id number] Completed 07/06/2009, 02/01/2006 Pneumococcal Vaccine: 50+ Years Completed 07/12/2016, 10/14/2014, 06/24/2009 Cologuard Discontinued 07/17/2022, 07/01, 07/01/2019, Additional history exists Colorectal Cancer Screening Discontinued Influenza Vaccine (FLU shot) Completed 07/02/2024, 07/04/2023, 06/13/2022, Additional history exists Colonoscopy Discontinued Fecal Occult Blood Test Discontinued HPV (Gardasil) Vaccine Aged Out No lo nger eligible based on patient's age to complete this topic Hepatitis B Vaccine Aged Out No longe r eligible based on patient's age to complete this topic MENINGOCOCCAL (MENACTRA/MENVEO) Aged Out No longer eligible based on patient's age to complete this topic Meningitis B Vaccine (Bexsero/Trumemba) Aged Out No longer eligible based on patient's age to complete this topic Sigmoidoscopy Discontinued documented as of this encounter Medical Devices Implanted Type Area C Iron Worker Device Identifier Shelf Expiration Date Model / Serial / Lot Sling Halo Needle [id number] - [id number] Implanted:Qty: 1 on 07/14/2009 at [place] [facility] [place] N/A: Urethra CR BARD : MEDICAL 03/31/2011 [id number] / / [id number] documented as of this encounter Visit Diagnoses Diagnosis History of pulmonary embolism- Primary Personal history of pulmonary embolism Anticoagulation management encounter Encounter for therapeutic drug monitoring documented in this encounter Advance Directives * Full Code (Latest Code Status on File) Date Activated Date Inactivated Comments 07/14/2009 10:00 AM 07/15/2009 10:13 PM This ord er reflects the patients wishes and were consensually agreed upon. * Full Code Date Activated Date Inactivated Comments 07/14/2009 6:10 AM 07/14/2009 10:00 AM This orde r reflects the patients wishes and were consensually agreed upon. Care Teams Complementary Health Therapists Relationship Specialty Start Date End Date Hayden Lyman DO [address] [place] [address] PCP - General Family Medicine 04/05/17 documented as of this encounter"
--- OUTSIDE RECORDS SUMMARY | 2025-01-24 02:18 | External Medical Summary | Summary of Care ---
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 Allergies No known active allergiesdocumented as of this encounter (statuses as of 12/11/2024) Medications Cyanocobalamin (B-12) 1000 MCG CapsuleIndication s:MTHFR [...] MG Oral Tablet (Coumadin)Indicat ions:Homozygous MTHFR mutation [id number],History of pulmonary embolism,Anticoag ulation management encounter,USP current use of anticoagulant therapy TAKE 1 [...] as of this encounter (statuses as of 12/11/2024) Active Problems Problem Noted Date Diagnosed Date Body mass index (BMI) of 45.0 to 49.9 in adult 1 Overview: Per Obesity protocol Age-related osteoporosis wit hout current pathological fracture 12/14/2023 Mild episode of recurrent major depressive disor rajesh 12/14/2023 Grief reaction 12/14/2023 ANDRES on CPAP 03/12/2019 Obesity hypoventilation syndrome 03/12/2019 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 10/07/2015 Calculus of gallbladder with out cholecystitis [...] as of this encounter (statuses as of 12/11/2024) Resolved Problems Problem Noted Date Diagnosed Date Resolved Date Cholelithiasis 03/28/2012 04/23/2015 MTHFR mutation 12/27/2011 10/07/2015 Overview (12/27/2011): Homozygous 1298C mutation Pulmonary embolus 11/23/2011 03/27/2013 Overview (02/05/2013): Hospitalized at [facility] 11/2011 Swelling, mass, or lump in chest 11/23/2011 08/01/2017 Routine medical exam 11/20/2011 018 buttermaker 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 current use of ant icoagulant therapy 11/20/2011 [...] as of this encounter (statuses as of 12/11/2024) Immunizations Name Administration Dates Next Due COVID-19 [...] 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 Not on file Not on file [employer] Not on file Not on file Not on file [employer]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 Ayala Cardiac Problems: History of recurrent bilateral pulmonary emboli, lifelong Coumadin therapy Hypertension Dyslipidemia, LDL goal below 100 Hypercoagulable state with homozygous MTHFR mutation GERD ANDRES, on CPAP- not compliant most nights Mild aortic sclerosis without stenosis, per echo 05/2021 HPI: Jenniffer Dumont is a 74 year old female presents for routine Cardiology follow up. Patient was last seen in the office by the undersigned on 02/27/2024, doing well from a cardiovascular perspective. Patient presents today feeling well from a cardiac perspective. Offers no acute complaints. Recently had a flu and GI bug, but has recovered. No decline in functional capacity EKG obtained today showing NSR with non-specific ST changes. Unchanged from prior She is planning to go to [facility] in the next month with the [facility] to rehab homes. BP controlled. Compliant on all medication issues with no untoward effects. REVIEW OF SYSTEMS: See HPI for pertinent positives. All others negative other than those noted in the HPI. CONSTITUTIONAL: No change in weight, No weakness, No fatigue and No fevers, No sweats or chills. PULMONARY: No cough, sputum, or hemoptysis, No wheezing, No shortness or breath and No recent change in breathing. CARDIOVASCULAR: No chest pain, No dyspnea on exertion, No edema, No palpitations and No syncope. GASTROINTESTINAL: No abdominal pain, No change in bowel habits, No significant heartburn, No nausea, No vomiting, No diarrhea, No constipation, No blood in stools or black tarry stools. No dysphagia. HEMATOLOGIC: No abnormal bleeding and No bruising. NEUROLOGICAL: Normal balance, No headaches and No weakness. Review of patient's allergies indicates: No Known Allergies Current Outpatient Medications Medication Sig Dispense Refill Cyanocobalamin (B-12) 1000 MCG Capsule Take 1 Cap by mouth daily. 100 Cap 11 Alendronate Sodium 70 MG Oral Tablet (Fosamax) Take 1 Tablet by mouth once a week. with 8 oz. water30 minutes before first meal of the day. Remain upright for 30 min after taking tablet 5 Tablet 11 Escitalopram Oxalate 10 MG Oral Tablet (Lexapro) Take 1 Tablet by mouth in the morning. 30 Tablet 5 Lisinopril 20 MG Oral Tablet (Prinivil) Take 1 Tablet by mouth in the morning. 100 Tablet 1 Warfarin Sodium 5 MG Oral Tablet (Coumadin) TAKE 1 TABLET BY MOUTH DAILY OR DIRECTED BY ANTICOAGCLINIC. 100 Tablet 1 amLODIPine Besylate 2.5 MG Oral Tablet (Norvasc) Take 1 Tablet by mouth in the morning. 90 Tablet 3 Furosemide 20 MG Oral Tablet (Lasix) Take 1 Tablet by mouth in the morning. 90 Tablet 0 Atorvastatin Calcium 40 MG Oral Tablet (Lipitor) Take 1 Tablet by mouth in the morning. 90 Tablet 0 Folic Acid 1 MG Oral Tablet Take 1 Tablet by mouth in the morning 90 Tablet 1 Mirabegron ER 50 MG Oral Tablet Extended Release 24 Hour (Myrbetriq) Take 1 Tablet by mouth in the morning. 30 Tablet 5 Cvjulxas-Tvbzgovzi-KG Ophthalmic Suspension Instill 1 Drop into affected eye in the morning, 1 Dropat noon, 1 Drop in the evening and 1 Drop before bedtime (Patient not taking: Reported on 12/11/2024) 7.5 mL 0 No current facility-administered medications for this visit. Past Medical History: Diagnosis Date BENIGN HYPERTENSION 11/20/2002 Cholelithiasis 03/28/2012 seen on Elevated homocysteine 11/30/2011 HYPERLIPIDEMIA NEC/NOS 12/17/2002 MTHFR mutation 11/30/2011 homozygous for the 1298C mutation; this is not clinically important OBESITY, UNSPECIFIED 11/20/2002 Other osteoporosis 2006 vitamin d deficiency on testing Premature menopause mid with hysterectomy, Dr Cristina Pulmonary embolism (HCC) 2012 Family History Problem Relation Name Age of Onset Alzheimer's disease Mother Prostate cancer Brother Jorge A 62 Diabetes Brother Jorge A Other (angioplasty) Brother Jorge A 58 Breast Cancer Granddaughter 24 Social History Socioeconomic History Marital status: Spouse name: Rj Number of children: 4 Occupational History 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 10 grandkids and great grandkids. 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 Social Needs Financial Resource Strain: Low Risk (02/12/2024) Financial Resource Strain Do you have any trouble paying for your medications, or do you think you might in the future? (Adult - for ages 18 years and over): No Food Insecurity: No Food Insecurity (02/12/2024) Food Insecurity Worried About Running Out of Food in the Last Year: Never true Ran Out of Food in the Last Year: Never true Do you need food for this week? (Adult - for ages 18 years and over): No Transportation Needs: No Transportation Needs (02/12/2024) Transportation Needs Do you have trouble getting a ride to medical visits or work? (Adult - for ages 18 years and over):Never True Social Connections: Socially Integrated (02/12/2024) Social Connections How often do you feel lonely or isolated from those around you? (Adult - for ages 18 years and over): Rarely Housing Stability: Low Risk (02/12/2024) Housing Stability Do you currently live in a [place] or have no steady place to sleep at night? (Adult - for ages 18 years and over): No Do you think you are at risk of becoming homeless? (Adult - for ages 18 years and over): No OBJECTIVE/PHYSICAL EXAMINATION: BP 136/82 | Pulse 62 | Wt 126.1 kg (278 lb) | BMI 47.00 kg/m² | BSA 2.4 m² General: No acute distress. A+Ox3. HEENT: Normocephalic. Atraumatic. PERRL. EOMI. Conjunctiva and sclera clear. NECK: No carotid bruits. No JVD. Carotid upstrokes are brisk. Heart: RRR. S1 and S2 noted. No murmur. No rubs or gallops. PMI non displaced. Lungs: Clear to auscultation. No wheezes.No rhonchi. No rales. Abdomen: Normal bowel sounds. Soft. Nontender. No masses or organomegaly. No abdominal bruits. Extremities: No edema. No clubbing or cyanosis. Pulses: radial=2/4, posterior tibial=2/4, dorsalis pedis = 2/4. NEURO: No focal deficits. PSYCH: Appropriate affect and insight. DATA Labs & Imaging Reviewed Below: Nuclear stress test 11/10/22 Gated SPECT imaging reveals normal myocardial thickening and wall motion. The left ventricular ejection fraction was calculated to be >65%. Lexiscan nuclear cardiac stress test negative for ischemia. Echocardiogram 11/09/22 The qualitative LV ejection fraction is 60-64% (normal). The LV wall thickness is mildly increased (concentric). The left ventricular wall motion is normal. The left ventricular diastolic function is mildly abnormal (grade I). There is aortic valve sclerosis without stenosis. There is no evidence of pulmonary hypertension. Echo 05/05/2021 The primary indication after review was deemed appropriate and the examination was performed. Normal LV chamber size with mild concentric LVH. Normal LV systolic function without regional wall motion abnormality. Calculated LV ejection Fraction = 63% (bi-plane method of discs). Grade 1 diastolic dysfunction. Mild aortic valve sclerosis without stenosis. ZIO monitor 09/21/22 Patient had a min HR of 47 bpm, max HR of 214 bpm, and avg HR of 78 bpm. Predominant underlying rhythm was Sinus Rhythm. 1 run of Ventricular Tachycardia occurred lasting 4 beats with a max rate of 214 bpm (avg 192 bpm). 9 Supraventricular Tachycardia runs occurred, the run with the fastest interval lasting 6 beats with a max rate of 160 bpm, the longest lasting 8 beats with an avg rate of 102 bpm. Isolated SVEs were rare (<1.0%), SVE Couplets were rare (<1.0%), and SVE Triplets were rare (<1.0%). Isolated VEs were rare (<1.0%), and no VE Couplets or VE Triplets were present. Agree with Preliminary Findings The patient's triggered events and diary entries correlated sinus rhythm. Lexiscan nuclear stress test report 05/2018: Myocardial perfusion imaging is normal. Overall left ventricular systolic function was normal without regional wall motion abnormalities. The left ventricular ejection fraction was 73%. There are no prior studies available for comparison. ASSESSMENT/PLAN: 74 year old year old female 1. HTN, goal below 140/90 -Doing well from a cardiac perspective. BP controlled. -EKG shows NSR with rate 64bpm. - EKG -Continue Amlodipine, Furosemide, Lisinopril 2. Dyslipidemia, goal LDL below 130 -Yearly lipid panel -Continue Atorvastatin - EKG DISPOSITION: Follow up 6 months or if symptoms worsen/fail to improve. All questions were answered to the patients satisfaction. Patient advised to report to ED with any and all emergencies. The patient agrees to the above plan and will call with additional questions or concerns. [facility], [address] [address] I spent a total of 31 minutes on the date of service in preparation, delivery, and documentation ofthe care provided to Jenniffer Dumont excluding any time spent in the performance of separately billed services. This chart was completed in part utilizing Geni Speech Voice Recognition Software. Grammatical errors, random word insertions, pronoun errors, and incomplete sentences are an occasional consequence of this system due to software limitations, ambient noise, and hardware issues. Any formal questions or concerns about the content, text, or information contained within the body of this dictation should be directly addressed to the provider for clarification. documented in this encounter Procedure Notes * Kimo Piña DO - 12/11/2024 11:02 AM EDTAssociated Order(s): EKG REASON FOR STUDY: routine;routine CONCLUSIONS: Normal sinus rhythm Nonspecific ST abnormality Abnormal ECG When compared with ECG of 19-Sep-2022 15:53, No significant change was found Ventricular Rate: 64 Atrial Rate: 64 DC Interval: 176 QRS Duration: 94 QT/QTc: 424/437 ms P-R-T [place]: 26 : -11 : 32 degrees documented in this encounter Nursing Notes * Socorro Cordova CMA - 12/11/2024 10:54 AM EDT Examination Room: 7 Name: Jenniffer Dumont Date of : (1950) Reason for Visit: 9m Interim Hospitalization(s): none Problems/Concerns: denied Chest Pain/SOB: denied My [facility] is a way you can talk to your provider online through e-mail. Would you like to sign up? I can activate it for you? ALREADY ACTIVE Patient was instructed to not get up on the exam table until directed and assisted by their provider; patient is to remain seated in the chair/ wheelchair/ exam table for fall prevention and safety reasons. Patient is aware to have assistance to step down off exam table with personnel. Patient voiced full comprehension of instructions. documented in this encounter Plan of Treatment Upcoming Encounters Date Type Department Care Team (Late st Contact Info) Description 12/31/2024 2:50 PM EDT Anticoagulation Pharmacy, [facility] [address] [facility] [place] [address] Pharmacist1, [facility] [address] [facility] [place] [address] 01/28/2025 3:00 PM EDT Office Visit Family Practice [facility] [address] [facility] [place] [place] [address] Hayden Lyman, [address] [facility] [place] [address] 04/09/2025 11:00 AM EDT Office Visit Urogynecology [facility] [address] [place] [address] Марина Childress PA-C [address] [place] [address] 06/18/2025 10:00 AM EDT Office Visit Cardiology, [facility] [address] [place] [address] Yumiko Collazo CRNP [address] [place] [address] Health Maintenance Due Date Last Done Comments Zoster Vaccines (1 of 2) 1999 Adult Wellness Visit 08/04/2023 08/04/2022, 03/22/20 21 Depression Monitoring 08/04/2023 08/04/2022 COVID-19 Vaccine ( season) 2024 07/28/2022, 11/22/2020, 10/25/2020 DXA Scan 10/24/2024 10/24/2022, 10/02, 12/02/2014, Additional history exists Albumin/Creatinine Ratio 06/26/2025 06/26/2022 GFR 11/07/2025 11/07/2024, 06/02, 10/27/2022, Additional history exists DTap/Tdap Vaccines (3 - Td or Tdap) 05/19/2029 05/19/2019, 02/19/2009 VITAMIN D LEVEL ONCE IN A LIFETIME-USE SMARTSET# [id number] Completed 07/06/2009, 02/01/2006 Pneumococcal Vaccine: 50+ Years [...] this encounter Medical Devices Implanted Type Area Certified Legal Investigator Device Identifier Shelf Expiration Date Model / Serial / Lot Sling Halo Needle [id number] - [id number] Implanted:Qty: 1 on 07/14/2009 at OR [facility] N/A: Urethra CR BARD : MEDICAL 03/31/2011 [id number] / / [id number] documented as of this encounter Procedures Procedure Name Priority Date/Time Associated Diagnosis Comments DC ECG ROUTINE ECG W/LEAST 12 LDS W/I&R Routine 12/11/2024 11:02 AM EDT HTN, goal below 140/90 Dyslipidemia, goal LDL below 130 documented in this encounter Results * EKG (12/11/2024 11:02 AM EDT) 12/11/2024 11:0 2 AM EDT Narrative Procedure Note Kimo Piña, DO - 12/11/2024 11:02 AM EDT REASON FOR STUDY: routine;routine CONCLUSIONS: Normal sinus rhythm Nonspecific ST abnormality Abnormal ECG When compared with ECG of 19-Sep-2022 15:53, No significant change was found Ventricular Rate: 64 Atrial Rate: 64 DC Interval: 176 QRS Duration: 94 QT/QTc: 424/437 ms P-R-T [place]: 26 : -11 : 32 degrees Yumiko MAURO EKG Final R esult [facility] documented in this encounter Visit Diagnoses Diagnosis HTN, goal below 140/90- Primary Unspecified essential hypertension Dyslipidemia, goal LDL below 130 Other and unspecified hyperlipidemia Homozygous MTHFR mutation [id number] Disturbances of sulphur-bearing amino-acid metabolism documented in this encounter Advance Directives * [...] and were consensually agreed upon. Care Teams Head Piece Assembler Relationship Specialty Start Date End Date Hayden Lyman DO [address] [place] [address] PCP - General Family Medicine 04/05/17 documented as of this encounter"
--- OUTSIDE RECORDS SUMMARY | 2025-01-24 02:18 | External Medical Summary | Summary of Care ---
Author Name Unknown Organization [facility] Address [address] [facility] [place] [address] Phone [phone] Care Team Providers Care Outside Plant Supervisor Name Role Phone Shayla Nuñez DO Primary Care Provider [phone] Reason for Visit * Reason Comments Medication Refill Encounter Details Date Type Department Care Team (Late st Contact Info) Description 01/19/[address] [facility] [address] [place] [address] Shayla Nuñez DO [address] [place] [address] Mild episode of recurrent major depressive disorder (HCC) Allergies No known active allergiesdocumented as of this encounter (statuses as of 01/20/2025) Medications Cyanocobalamin (B-12) 1000 MCG CapsuleIndication s:MTHFR mutation,Elevated homocysteine Take 1 Cap by mouth daily. 100 Cap 11 02/01/20 18 Active Alendronate Sodium 70 MG Oral Tablet (Fosamax) Take 1 Tablet by mouth once a week. with 8 oz. water 30 minutes before first meal of the day. Remain upright for 30 min after taking tablet 5 Tablet 11 10/26/19 23 Active Neomycin-Polymyxi n-HC Ophthalmic Suspension Instill 1 Drop into affected eye in the morning, 1 Drop at noon, 1 Drop in the evening and 1 Drop before bedtime 7.5 mL 4 7:43 AM EDT 07/02/20 24 Active Additional Information Patient not taking.Reported on 12/11/2024 Lisinopril 20 MG Oral Tablet (Prinivil)Indicat ions:HTN, goal below 140/90 Take 1 Tablet by mouth in the morning. 100 Tablet 1 5 3:44 PM EST 08/11/20 24 Active Warfarin Sodium 5 MG Oral Tablet (Coumadin)Indicat ions:Homozygous MTHFR mutation [id number],History of pulmonary embolism,Anticoag ulation management encounter,snf current use of anticoagulant therapy TAKE 1 TABLET BY MOUTH DAILY OR DIRECTED BY ANTICOAG CLINIC. 100 Tablet 1 5 3:44 PM EST 08/11/20 24 Active amLODIPine Besylate 2.5 MG Oral Tablet (Norvasc)Indicati ons:HTN, goal below 140/90 Take 1 Tablet by mouth in the morning. 90 Tablet 3 5 2:04 PM EST 10/13/19 25 Active Furosemide 20 MG Oral Tablet (Lasix)Indication s:HTN, goal below 140/90 Take 1 Tablet by mouth in the morning. 90 Tablet 5 11:24 AM EST 10/23/19 25 Active Atorvastatin Calcium 40 MG Oral Tablet (Lipitor)Indicati ons:Dyslipidemia, goal LDL below 130 Take 1 Tablet by mouth in the morning. 90 Tablet 5 11:24 AM EST 10/23/19 25 Active Folic Acid 1 MG Oral TabletIndications :MTHFR mutation,Elevated homocysteine Take 1 Tablet by mouth in the morning 90 Tablet 1 5 4:44 PM EST 11/21/19 25 Active Mirabegron ER 50 MG Oral Tablet Extended Release 24 Hour (Myrbetriq) Take 1 Tablet by mouth in the morning. 30 Tablet 5 5 9:43 AM EST 11/20/19 25 Active Escitalopram Oxalate 10 MG Oral Tablet (Lexapro)Indicati ons:Mild episode of recurrent major depressive disorder (HCC) Take 1 Tablet by mouth in the morning. 30 Tablet 11 01/21/20 25 Active Escitalopram Oxalate 10 MG Oral Tablet (Lexapro)Indicati ons:Mild episode of recurrent major depressive disorder (HCC) Take 1 Tablet by mouth in the morning. 30 Tablet 5 5 2:04 PM EST 07/02/20 24 025 Discontin ued(Refil l) documented as of this encounter (statuses as of 01/20/2025) Active Problems Problem Noted Date Diagnosed Date Body mass index (BMI) of 45.0 to 49.9 in adult 1 Overview: Per Obesity protocol Age-related osteoporosis wit hout current pathological fracture 12/14/2023 Mild episode of recurrent major depressive disor rajesh 12/14/2023 Grief reaction 12/14/2023 ANDRES on CPAP 03/12/2019 Obesity hypoventilation syndrome 03/12/2019 Homozygous MTHFR mutation [id number] 10/07/2015 Calculus of gallbladder with out cholecystitis [...] as of this encounter (statuses as of 01/20/2025) Resolved Problems Problem Noted Date Diagnosed Date Resolved Date Cholelithiasis 03/28/2012 04/23/2015 MTHFR mutation 12/27/2011 10/07/2015 Overview (12/27/2011): Homozygous 1298C mutation Pulmonary embolus 11/23/2011 03/27/2013 Overview (02/05/2013): Hospitalized at [facility] 11/2011 Swelling, mass, or lump in chest 11/23/2011 08/01/2017 Routine medical exam 11/20/2011 018 snf current use of ant icoagulant therapy 11/20/2011 [...] as of this encounter (statuses as of 01/20/2025) Immunizations Name Administration Dates Next Due COVID-19 [...] 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 on 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 Not on file Not on file [employer]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 Not on file Not on file documented as of this encounter Miscellaneous Notes * Telephone Encounter - Janae Mendiola RPh - 01/20/2025 1:08 PM EDT Signed Prescriptions: Disp Refills Escitalopram Oxalate 10 MG Oral Tablet (Le*30 Tab*11 Sig: Take 1Tablet by mouth in the morning.Authorizing Provider: SHAYLA NUÑEZ User: JANAE MENDIOLA documented in this encounter Plan of Treatment Upcoming Encounters Date Type Department Care Team (Late st Contact Info) Description 01/28/2025 3:00 PM EDT Office Visit Family Practice [facility] [place] [address] [place] [address] Shayla Nuñez, DO [address] [facility] [place] [address] 2025 2:40 PM EDT Anticoagulation Pharmacy, [facility] [address] [facility] [place] [address] Pharmacist1, [facility] [address] [facility] [place] [address] 04/09/2025 11:00 AM EDT Office Visit Urogynecology [facility] [address] [place] [address] Марина Childress PA-C [address] [place] [address] 06/18/2025 10:00 AM EDT Office Visit Cardiology, [facility] [address] [place] [id number] Yumiko Collazo CRNP [address] [place] [address] Health Maintenance Due Date Last Done Comments [...] D LEVEL ONCE IN A LIFETIME-USE SMARTSET# [id number] Completed 07/06/2009, 02/01/2006 Pneumococcal Vaccine: 50+ Years [...] this encounter Medical Devices Implanted Type Area Digital Retoucher Device Identifier Shelf Expiration Date Model / Serial / Lot Sling Halo Needle [id number] - [id number] Implanted:Qty: 1 on 07/14/2009 at OR [facility] [place] N/A: Urethra CR BARD : MEDICAL 03/31/2011 [id number] / / [id number] documented as of this encounter Visit Diagnoses Diagnosis Mild episode of recurrent major depressive disorder (HCC) documented in this encounter Advance Directives * [...] and were consensually agreed upon. Care Teams Outside Plant Supervisor Relationship Specialty Start Date End Date Shayla Nuñez DO [facility] [place] [address] PCP - General Family Medicine 04/05/17 documented as of this encounter
--- OUTSIDE RECORDS SUMMARY | 2025-01-24 02:18 | External Medical Summary | Summary of Care ---
Author Name Unknown Organization [facility] Address [address] [facility] [place] [address] Phone [phone] Care Team Providers Care Dinkey Locomotive Operator Name Role Phone Hayden Lyman DO Primary Care Provider [phone] Reason for Visit * Reason Comments Medication Refill Encounter Details Date Type Department Care Team (Late st Contact Info) Description 01/19/2025 Refill Cardiology, [facility] [address] [place] [phone] Melanie Baxter CRNP [address] [place] [id number] HTN, goal below 140/90; Dyslipidemia, goal LDL below 130 Allergies No known active allergiesdocumented as of this encounter (statuses as of 01/21/2025) Medications Cyanocobalamin (B-12) 1000 MCG CapsuleIndication s:MTHFR [...] MG Oral Tablet (Coumadin)Indicat ions: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 100 Tablet 1 5 3:44 PM EST 08/11/20 24 Active amLODIPine Besylate 2.5 MG Oral Tablet (Norvasc)Indicati ons:HTN, goal below 140/90 Take 1 Tablet by mouth in the morning. 90 Tablet 3 5 2:04 PM EST 10/13/19 25 Active Folic Acid 1 MG Oral [...] morning. 30 Tablet 11 01/21/20 25 Active Furosemide 20 MG Oral Tablet (Lasix)Indication s:HTN, goal below 140/90 Take 1 Tablet by mouth in the morning. 90 Tablet 3 01/22/20 25 Active Atorvastatin Calcium 40 MG Oral Tablet (Lipitor)Indicati ons:Dyslipidemia, goal LDL below 130 Take 1 Tablet by mouth in the morning. 90 Tablet 3 01/22/20 25 Active Furosemide 20 MG Oral Tablet (Lasix)Indication s:HTN, goal below 140/90 Take 1 Tablet by mouth in the morning. 90 Tablet 5 11:24 AM EST 10/23/19 25 025 Discontin ued(Refil l) Atorvastatin Calcium 40 MG Oral Tablet (Lipitor)Indicati ons:Dyslipidemia, goal LDL below 130 Take 1 Tablet by mouth in the morning. 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 Calculus of gallbladder with out cholecystitis [...] as of this encounter (statuses as of 01/21/2025) Resolved Problems Problem Noted Date Diagnosed Date Resolved Date Cholelithiasis 03/28/2012 04/23/2015 MTHFR mutation 12/27/2011 10/07/2015 Overview (12/27/2011): Homozygous 1298C mutation Pulmonary embolus 11/23/2011 03/27/2013 Overview (02/05/2013): Hospitalized at [facility] 11/2011 Swelling, mass, or lump in chest 11/23/2011 08/01/2017 Routine medical exam 11/20/2011 018 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 [employer] current use of ant icoagulant therapy 11/20/2011 [...] as of this encounter (statuses as of 01/21/2025) Immunizations Name Administration Dates Next Due COVID-19 [...] Industry 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 Not on file Not on file documented as of this encounter Miscellaneous Notes * Telephone Encounter - Poonam Allen, [facility] - 01/21/2025 9:26 AM EDT Signed Prescriptions: Disp Refills Furosemide 20 MG Oral Tablet (Lasix) 90 Tab*3 Sig: Take 1 Tabletby mouth in the morning.Authorizing Provider: MELANIE BAXTER User: POONAM ALLEN Atorvastatin Calcium 40 MG Oral Tablet (Li*90 Tab*3 Sig: Take 1 Tablet by mouth in the morning .Authorizing Provider: MELANIE BAXTER User: POONAM ALLEN documented in this encounter Plan of Treatment Upcoming Encounters Date Type Department Care Team (Late st Contact Info) Description 01/28/2025 3:00 PM EDT Office Visit Family Practice [facility] [address] [place] [address] Hayden Lyman, DO [address] [place] [address] 2025 2:40 PM EDT Anticoagulation Pharmacy, [facility] [address] [place] [address] Pharmacist1, [facility] [address] [facility] [place] [address] 04/09/2025 11:00 AM EDT Office Visit Urogynecology [facility] [address] [place] [address] Марина Childress PA-C [address] [place] [address] 06/18/2025 10:00 AM EDT Office Visit Cardiology, [facility] [address] [place] [phone] Melanie Baxter CRNP [address] [place] [address] Health Maintenance Due Date Last Done Comments [...] D LEVEL ONCE IN A LIFETIME-USE SMARTSET# [id number] Completed 07/06/2009, 02/01/2006 Pneumococcal Vaccine: 50+ Years [...] this encounter Medical Devices Implanted Type Area Key Person Device Identifier Shelf Expiration Date Model / Serial / Lot Sling Halo Needle [id number] - [id number] Implanted:Qty: 1 on 07/14/2009 at OR [facility] N/A: Urethra CR BARD : MEDICAL 03/31/2011 [id number] / / [id number] documented as of this encounter Visit Diagnoses Diagnosis HTN, goal below 140/90 Unspecified essential hypertension Dyslipidemia, goal LDL below 130 Other and unspecified hyperlipidemia documented in this encounter Advance Directives * [...] and were consensually agreed upon. Care Teams Dinkey Locomotive Operator Relationship Specialty Start Date End Date Hayden Lyman DO [facility] [place] [address] PCP - General Family Medicine 04/05/17 documented as of this encounter
--- OUTSIDE RECORDS SUMMARY | 2025-01-24 02:19 | External Medical Summary | Summary of Care ---
Author Name Unknown Organization [facility] Address [address] [facility] [place] [address] Phone [phone] Care Team Providers Care Customer Relations Consultant Name Role Phone Hayden Lyman DO Primary Care Provider [phone] Reason for Visit * Reason Comments Dosage Adjustment In Person (Anticoag Cl inic) Encounter Details Date Type Department Care Team (Latest Contact Info) Description 11/26/2024 11:00 AM EST Anticoagulation Pharmacy, [facility] [address] [facility] [place] [address] Pharmacist1, [facility] [address] [facility] [place] [address] History of pulmonary embolism*; Anticoagulation management encounter Allergies No known active allergiesdocumented as of this encounter (statuses as of 11/26/2024) Medications Cyanocobalamin (B-12) 1000 MCG CapsuleIndications :MTHFR mutation,Elevated homocysteine Take 1 Cap by mouth daily. 100 Cap 11 8 Active Alendronate Sodium 70 MG Oral Tablet (Fosamax) Take 1 Tablet by mouth once a week. with 8 oz. water 30 minutes before first meal of the day. Remain upright for 30 min after taking tablet 5 Tablet 11 3 Active Escitalopram Oxalate 10 MG Oral Tablet (Lexapro)Indicatio ns:Mild episode of recurrent major depressive disorder (HCC) Take 1 Tablet by mouth in the morning. 30 Tablet 5 10/15/2024 2:04 PM EST 4 Active Neomycin-Polymyxin -HC Ophthalmic Suspension Instill 1 Drop into affected eye in the morning, 1 Drop at noon, 1 Drop in the evening and 1 Drop before bedtime 7.5 mL 07/09/2024 7:43 AM EDT 4 Active Lisinopril 20 MG Oral Tablet (Prinivil)Indicati ons:HTN, goal below 140/90 Take 1 Tablet by mouth in the morning. 100 Tablet 1 11/20/2024 3:44 PM EST 4 Active Warfarin Sodium 5 MG Oral Tablet (Coumadin)Indicati ons:Homozygous MTHFR mutation R3187K,History of pulmonary embolism,Anticou lation management encounter,snf current use of anticoagulant therapy TAKE 1 TABLET BY MOUTH DAILY OR DIRECTED BY ANTICOAG CLINIC. 100 Tablet 1 11/20/2024 3:44 PM EST 4 Active amLODIPine Besylate 2.5 MG Oral Tablet (Norvasc)Indicatio ns:HTN, goal below 140/90 Take 1 Tablet by mouth in the morning. 90 Tablet 3 10/15/2024 2:04 PM EST 5 Active Furosemide 20 MG Oral Tablet (Lasix)Indications :HTN, goal below 140/90 Take 1 Tablet by mouth in the morning. 90 Tablet 10/24/2024 11:24 AM EST 5 Active Atorvastatin Calcium 40 MG Oral Tablet (Lipitor)Indicatio ns:Dyslipidemia, goal LDL below 130 Take 1 Tablet by mouth in the morning. 90 Tablet 10/24/2024 11:24 AM EST 5 Active Folic Acid 1 MG Oral TabletIndications: MTHFR mutation,Elevated homocysteine Take 1 Tablet by mouth in the morning 90 Tablet 1 5 Active Mirabegron ER 50 MG Oral Tablet Extended Release 24 Hour (Myrbetriq) Take 1 Tablet by mouth in the morning. 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 10/07/2015 Calculus of gallbladder with out cholecystitis [...] as of this encounter (statuses as of 11/26/2024) Resolved Problems Problem Noted Date Diagnosed Date Resolved Date Cholelithiasis 03/28/2012 04/23/2015 MTHFR mutation 12/27/2011 10/07/2015 Overview (12/27/2011): Homozygous 1298C mutation Pulmonary embolus 11/23/2011 03/27/2013 Overview (02/05/2013): Hospitalized at [facility] 11/2011 Swelling, mass, or lump in chest [...] as of this encounter (statuses as of 11/26/2024) Immunizations Name Administration Dates Next Due COVID-19 [...] the money to buy more. 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 Description (Takes 9:30 AM) Patient Findings Positives: Signs/symptoms of bleeding (had some bleeding from dentist drill.), Change in health (She had the noro virus 11/13-11-19. Vomitting/diarrhea), Change in diet/appetite (She didn't eat much 11/13-11/19) Negatives: Signs/symptoms of thrombosis, Change in alcohol use, Change in activity, Upcoming invasive procedure, Missed doses, Extra doses, Change in medications, Bruising INR Result As of 11/26/2024 INR goal: 2.0-3.0 INR used for dosin.5 (11/26/2024) Warfarin Plan As of 11/26/2024 Full warfarin instructions: 2.5 mg every Mon, Fri; 5 mg all other days No change documented: Иван Little RPh Next INR check: 12/31/2024 Repeat PT/INR in 5 week(s) Weekly dose: not changed I spent a total of 10-19 minutes (exact time 16 mins) on the date of service in preparation, delivery, and documentation of the care provided to Jenniffer Dumont excluding any time spent in the performance of separately billed services or time spent by another provider/QHP. Иван Chin RPh, [facility] Clinical Pharmacist Medication Therapy Disease Management 11/26/2024, 11:14 AM documented in this encounter Plan of Treatment Upcoming Encounters Date Type Department Care Team (Late st Contact Info) Description 12/11/2024 11:00 AM EDT Office Visit Cardiology, [facility] [address] [place] [address] Yumiko Collazo CRNP [address] [place] [address] 12/31/2024 2:50 PM EDT Anticoagulation Pharmacy, [facility] [address] [facility] [place] [address] Pharmacist1, [facility] [address] [facility] [place] [address] 01/28/2025 3:00 PM EDT Office Visit Family Practice [facility] [address] [facility] [place] [address] Hayden Lyman, DO [address] [facility] [place] [address] 04/09/2025 11:00 AM EDT Office Visit Urogynecology [facility] [address] [place] [address] Марина Childress PA-C [address] [place] [address] Health Maintenance Due Date Last Done Comments [...] D LEVEL ONCE IN A LIFETIME-USE SMARTSET# [id number] Completed 07/06/2009, 02/01/2006 Pneumococcal Vaccine: 50+ Years [...] this encounter Medical Devices Implanted Type Area Inpatient Services Rn Device Identifier Shelf Expiration Date Model / Serial / Lot Sling Halo Needle [id number] - [id number] Implanted:Qty: 1 on 07/14/2009 at OR [facility] N/A: Urethra CR BARD : MEDICAL 03/31/2011 [id number] / / [id number] documented as of this encounter Procedures Procedure Name Priority Date/Time Associated Diagnosis Comments INR FINGERSTICK, POINT OF CARE STAT 11/26/2024 11:10 AM EST History of pulmonary embolism Anticoagulation management encounter documented in this encounter Results * INR FINGERSTICK, POINT OF CARE (11/26/2024 11:10 AM EST) Fingerstick INR 2.5 INR 11:15 AM EST [facility]- Blood 11/26/2024 11:1 0 AM EST 11/26/2024 11:15 AM EST Narrative [facility] 56-02 - 11/26/2024 11:15 AM EST Therapeutic ranges for non-operative patients: Prophylaxsis/treatment of DVT: (Range:2.0-3.0) Treatment of pulmonary embolism:(Range:2.0-3.0) Prevention of systemic embolism from: -tissue heart valves -acute myocardial infarction -valvular heart disease -atrial fibrillation (Range: 2.0-3.0) Mechanical prosthetic valves: (Range: 2.5-3.5) Иван Giuseppe V, [facility] LAB POINT OF CARE TE ST DOCKED DEVICE UNSOLICITED RESULTS Final Result [facility] [address] [facility] [address] documented in this encounter Visit Diagnoses Diagnosis History of [...] and were consensually agreed upon. Care Teams Customer Relations Consultant Relationship Specialty Start Date End Date Hayden Lyman DO 200 [facility] [place] [address] PCP - General Family Medicine 04/05/17 documented as of this encounter
--- OUTSIDE RECORDS SUMMARY | 2025-01-24 02:19 | External Medical Summary | Summary of Care ---
Author Name Unknown Organization [facility] Address [address] [facility] [place] [address] Phone [phone] Care Team Providers Care Shingle Trimmer Name Role Phone Hayden Lyman DO Primary Care Provider [phone] Reason for Visit * Reason Onset Date Comments Precert Denied 08/27/2024 GEMTESA 75 MG TA BLET Status Check 08/27/2024 Encounter Details Date Type Department Care Team (Late st Contact Info) Description 08/27/2024 Telephone Urology, [facility] [address] [place] [address] Марина Childress PA-C [address] [place] [address] Precert Denied (GEMTESA 75 MG TABLET); Sta... Allergies No known active allergiesdocumented as of this encounter (statuses as of 09/18/2024) Medications Cyanocobalamin (B-12) 1000 MCG CapsuleIndication s:MTHFR mutation,Elevated homocysteine Take 1 Cap by mouth daily. 100 Cap 11 8 Active Alendronate Sodium 70 MG Oral Tablet (Fosamax) Take 1 Tablet by mouth once a week. with 8 oz. water 30 minutes before first meal of the day. Remain upright for 30 min after taking tablet 5 Tablet 11 3 Active Folic Acid 1 MG Oral TabletIndications :MTHFR mutation,Elevated homocysteine Take 1 Tablet by mouth in the morning. In the morning.. 90 Tablet 1 3 Active amLODIPine Besylate 2.5 MG Oral Tablet (Norvasc)Indicati ons:HTN, goal below 140/90 Take 1 Tablet by mouth in the morning. 90 Tablet 3 07/11/2024 8:25 AM EDT 4 Active Furosemide 20 MG Oral Tablet (Lasix)Indication s:HTN, goal below 140/90 Take 1 Tablet by mouth in the morning. 90 Tablet 3 07/28/2024 11:09 AM EDT 4 Active Atorvastatin Calcium 40 MG Oral Tablet (Lipitor)Indicati ons:Dyslipidemia, goal LDL below 130 Take 1 Tablet by mouth in the morning. 90 Tablet 3 07/28/2024 11:18 AM EDT 4 Active Escitalopram Oxalate 10 MG Oral Tablet (Lexapro)Indicati ons:Mild episode of recurrent major depressive disorder (HCC) Take 1 Tablet by mouth in the morning. 30 Tablet 5 07/04/2024 12:00 PM EDT 4 Active Neomycin-Polymyxi n-HC Ophthalmic Suspension Instill 1 Drop into affected eye in the morning, 1 Drop at noon, 1 Drop in the evening and 1 Drop before bedtime 7.5 mL 07/09/2024 7:43 AM EDT 4 Active Lisinopril 20 MG Oral Tablet (Prinivil)Indicat ions:HTN, goal below 140/90 Take 1 Tablet by mouth in the morning. 100 Tablet 1 08/11/2024 6:09 PM EST 4 Active Warfarin Sodium 5 MG Oral Tablet (Coumadin)Indicat ions:Homozygous MTHFR mutation [id number],History of pulmonary embolism,Anticoag ulation management encounter,retirement current use of anticoagulant therapy TAKE 1 TABLET BY MOUTH DAILY OR DIRECTED BY ANTICOAG CLINIC. 100 Tablet 1 08/11/2024 6:09 PM EST 4 Active Mirabegron ER 25 MG Oral Tablet Extended Release 24 Hour (Myrbetriq) Take 1 Tablet by mouth in the morning. 30 Tablet 11 4 Active Gemtesa 75 MG Oral Tablet (Vibegron)Indicat ions:Mixed incontinence,Urin jordi frequency Take 1 Tablet by mouth in the morning. 30 Tablet 11 4 09/18/20 Discontin ued(Formu sarah/Cost ) documented as of this encounter (statuses as of 09/18/2024) Active Problems Problem Noted Date Diagnosed Date Body mass index (BMI) of 45.0 to 49.9 in adult 1 Overview: Per Obesity protocol Age-related osteoporosis wit hout current pathological fracture 12/14/2023 Mild episode of recurrent major depressive disor rajesh 12/14/2023 Grief reaction 12/14/2023 ANDRES on CPAP 03/12/2019 Obesity hypoventilation syndrome 03/12/2019 Homozygous MTHFR mutation [id number] 10/07/2015 Calculus of gallbladder with out cholecystitis [...] as of this encounter (statuses as of 09/18/2024) Resolved Problems Problem Noted Date Diagnosed Date Resolved Date Cholelithiasis 03/28/2012 04/23/2015 MTHFR mutation 12/27/2011 10/07/2015 Overview (12/27/2011): Homozygous 1298C mutation Pulmonary embolus 11/23/2011 03/27/2013 Overview (02/05/2013): Hospitalized at [facility] 11/2011 Swelling, mass, or lump in chest 11/23/2011 08/01/2017 Routine medical exam 11/20/2011 018 retirement current use of ant icoagulant therapy 11/20/2011 [...] as of this encounter (statuses as of 09/18/2024) Immunizations Name Administration Dates Next Due COVID-19 [...] ages 0-17 years) Not on file 02/12/2024 Comments No Sex and Gender Information Value Date Recorded Sex Assigned at Female 06/10/2022 11:53 PM EDT Legal Sex Female 7:10 AM EST Gender Identity Female 06/10/2022 11:53 PM EDT Sexual Orientation Straight 06/10/2022 11 :53 PM EDT 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 Call placed to pt to advise. No other questions/concerns noted. * Telephone Encounter - Марина Childress PA-C - 09/18/2024 1:59 PM EST Erx sent for Myrbetriq ER 25mg daily. Please make patient aware. Thanks! * Telephone Encounter - Mary Ann Wilson LPN - 09/18/2024 11:40 AM EST Please send to uro/obstetrics gyn nurses Thank you Mary Ann Wilson LPN * Telephone Encounter - Maya De CPhT - 09/18/2024 11:28 AM EST Pt calling to check on status of an alternative medication because Gemtesa 75 MG Oral Tablet (Vibegron) was denied by her insurance. Caller can be reached at [phone]. Thank you, Arline De CPhT Construction Ironworker Helper [employer] [facility] ([facility]) [address] [place] [address], [address] [place] [address] * Telephone Encounter - Maya De CPhT - 09/02/2024 10:54 AM EST Pt calling to check on status of the PA for Gemtesa 75 MG Oral Tablet (Vibegron) . Caller can be reached at [phone]. Thank you, Arline De CPhT Construction Ironworker Helper III [facility] ([facility]) [address] [place] [address], [address] [phone] * Telephone Encounter - Suki Wilson OSA - 08/29/2024 8:45 AM EST UroGyn's Medicine Pre-Cert Request Medication/Disease State Information: Medication: Gemtesa (75 mg tablet) Take 75 mg 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 Office Information: Prescriber: Марина Childress PA-C Urogynecology * Telephone Encounter - Elsa Hsu CPhT - 08/27/2024 2:42 PM EST Pharmacy calling to inform doctor that the patient's insurance will not pay for this medication without a completed prior authorization. Did confirm this information with the pharmacy. Pt's current insurance information is as follows: Patient name: Jenniffer Dumont ID number: [id number] BIN number: [id number] PCN number: [id number] Group number: [id number] Subscriber name: Jenniffer Dumont Primary or Secondary Insurance:Primary Medication: gemtasa Reason for Request: prior auth Pharmacy and phone number: [facility] [phone] Rx plan and phone number: [facility] [phone] Is this a new medication for the patient? Yes What alternative medications does the pharmacy have in stock?: n/a Thank you, Elsa Hsu CPhT Rubber Splicer II [facility]) 08/27/2024,2:42 PM documented in this encounter Plan of Treatment Upcoming Encounters Date Type Department Care Team (Late st Contact Info) Description 10/10/2024 2:50 PM EST Office Visit Urogynecology [facility] [address] [place] [address] Марина Childress PA-C [address] [place] [address] 10/15/2024 11:00 AM EST Anticoagulation Pharmacy, [facility] [address] [facility] [place] [address] Pharmacist1, [facility] [address] [facility] [place] [address] 12/11/2024 11:00 AM EDT Office Visit Cardiology, [facility] [address] [place] [address] Yumiko Collazo CRNP [address] [place] [address] 01/28/2025 3:00 PM EDT Office Visit Family Practice [facility] [place] [address] [facility] [place] [address] Hayden Lyman, DO [address] [facility] [place] [address] Health Maintenance Due Date Last Done Comments Zoster Vaccines (1 of 2) 1999 Adult Wellness Visit 08/04/2023 08/04/2022, 03/22/20 21 Depression Monitoring 08/04/2023 08/04/2022 COVID-19 Vaccine ( season) 2024 07/28/2022, 11/22/2020, 10/25/2020 GFR 06/25/2024 06/25/2023, 10/02, 10/13/2022, Additional history exists DXA Scan 10/24/2024 10/24/2022, 10/02, 12/02/2014, Additional history exists Albumin/Creatinine Ratio 06/26/2025 06/26/2022 DTap/Tdap Vaccines (3 - Td or Tdap) 05/19/2029 05/19/2019, 02/19/2009 VITAMIN D LEVEL ONCE IN A LIFETIME-USE SMARTSET# [id number] Completed 07/06/2009, 02/01/2006 Pneumococcal Vaccine: 65+ Years Completed 07/12/2016, 10/14/2014, 06/24/2009 Cologuard Discontinued [...] this encounter Medical Devices Implanted Type Area Washroom Cleaner Device Identifier Shelf Expiration Date Model / Serial / Lot Sling Halo Needle [id number] - [id number] Implanted:Qty: 1 on 07/14/2009 at OR [facility] N/A: Urethra CR BARD : MEDICAL 03/31/2011 [id number] / / [id number] documented as of this encounter Advance Directives * Full Code (Latest Code Status on File) Date Activated Date Inactivated Comments 07/14/2009 10:00 AM 07/15/2009 10:13 PM This ord er reflects the patients wishes and were consensually agreed upon. * Full Code Date Activated Date Inactivated Comments 07/14/2009 6:10 AM 07/14/2009 10:00 AM This orde r reflects the patients wishes and were consensually agreed upon. Care Teams Shingle Trimmer Relationship Specialty Start Date End Date Hayden Lyman DO [address] [place] [address] PCP - General Family Medicine 04/05/17 documented as of this encounter
--- OUTSIDE RECORDS SUMMARY | 2025-01-24 02:19 | External Medical Summary ---
Author Name Unknown Address Unknown Organization K01:[facility] [address] [place] [address] Laboratory Report Ordering Provider Test Date Status SINDY BALDERAS 11/07/2024 12:11:09 Final Observation Date Value Abnormality Reference (Units ) Status Magnesium 11/07/2024 12:11:09 2.1 1.5-2.6 (m g/dL) Final Performing Location [facility] - [address] [place] [address]
--- OUTSIDE RECORDS SUMMARY | 2025-01-24 02:19 | External Medical Summary ---
Author Name Unknown Address Unknown Organization K01[facility] [place] [facility] [place] [address] [facility] [place] [address] Laboratory Report Ordering Provider Test Date Status SINTIA MCGUIRENORMAR 11/07/2024 12:11:09 Final Observation Date Value Abnormality Reference (Units ) Status Triglyceride 11/07/2024 12:11:09 142 <=174 ( mg/dL) Final Triglyceride Reference Range s (mg/dL):
<150 Acceptable
150-174 Borderline high
175-499 High
>=500 Very high Cholesterol 11/07/2024 12:11:09 161 <200 (mg /dL) Final Total Cholesterol Reference Ranges (mg/dL):
<200 Desirable
200-239 Borderline high
>=240 High HDL 11/07/2024 12:11:09 50 >49 (mg/dL ) Final HDL Cholesterol Reference Ra nges (mg/dL):
>=60 High (Desirable)
<50 Low (Undesirable) For Females
<40 Low (Undesirable) For Males NON-HDL CHOLESTEROL 11/07/2024 12:11:09 111 <=159 (mg/dL) Final Non-HDL Cholesterol Referenc e Range (mg/dL):
<100 Target level for high risk ASCVD patient
<130 Optimal for general population
130-159 Near optimal for general population
160-189 Borderline High
190-219 High
>=220 Very High LDL, (calculated) 11/07/2024 12:11:09 83 <= 129 (mg/dL) Final LDL Cholesterol Reference Ra nges (mg/dL):
<70 Target level for high risk ASCVD patient
<100 Optimal for general population
100-129 Near optimal for general population
130-159 Borderline high
160-189 High
>=190 Very high Performing Location [facility] [place] [address] [facility] [address]
--- OUTSIDE RECORDS SUMMARY | 2025-01-24 02:19 | External Medical Summary ---
Author Name Unknown Address Unknown Organization K09:[facility] [place] [address] Laboratory Report Ordering Provider Test Date Status PEDRO HAHN V 11/26/2024 11:10:45 Final Therapeutic ranges for non-o perative patients:
Prophylaxsis/treatment of DVT: (Range:2.0-3.0)
Treatment of pulmonary embolism:(Range:2.0-3.0)
Prevention of systemic embolism from:
-tissue heart valves
-acute myocardial infarction
-valvular heart disease
-atrial fibrillation
(Range: 2.0-3.0)
Mechanical prosthetic valves: (Range: 2.5-3.5) Observation Date Value Abnormality Reference (Units ) Status INR in Capillary blood by Coagulation assay 11/26/2024 11:10:45 2.5 (INR) Final Performing Location [facility] [place] [place] [address]
--- OUTSIDE RECORDS SUMMARY | 2025-01-24 02:19 | External Medical Summary | Summary of Care ---
Author Name Unknown Organization [facility] Address [address] [facility] [place] [address] Phone [phone] Care Team Providers Care Manager Social Media Name Role Phone Hayden Lyman DO Primary Care Provider [phone] Reason for Visit * Reason Comments Outpatient Testing Encounter Details Date Type Department Care Team (Late st Contact Info) Description 11/07/2024 12:20 PM EST Laboratory Laboratory, [facility] [address] [facility] [place] [phone] [facility] [address] [facility] [place] [address] Dyslipidemia, goal LDL below 130; Encounter for long-term (current) use of medications Allergies No known active allergiesdocumented as of this encounter (statuses as of 11/07/2024) Medications Cyanocobalamin (B-12) 1000 MCG CapsuleIndications :MTHFR [...] 3 Active Folic Acid 1 MG Oral TabletIndications: MTHFR mutation,Elevated homocysteine Take 1 Tablet by mouth in the morning. In the morning.. 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 Calculus of gallbladder with out cholecystitis [...] as of this encounter (statuses as of 11/07/2024) Resolved Problems Problem Noted Date Diagnosed Date Resolved Date Cholelithiasis 03/28/2012 04/23/2015 MTHFR mutation 12/27/2011 10/07/2015 Overview (12/27/2011): Homozygous 1298C mutation Pulmonary embolus 11/23/2011 03/27/2013 Overview (02/05/2013): Hospitalized at [facility] 11/2011 Swelling, mass, or lump in chest 11/23/2011 08/01/2017 Routine medical exam 11/20/2011 018 [place] current use of ant icoagulant therapy 11/20/2011 [...] as of this encounter (statuses as of 11/07/2024) Immunizations Name Administration Dates Next Due COVID-19 [...] 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 Not on file Not on file documented as of this encounter Plan of Treatment Upcoming Encounters Date Type Department Care Team (Late st Contact Info) Description 11/26/2024 11:00 AM EST Anticoagulation Pharmacy, [facility] [address] [facility] [place] [address] Pharmacist1, [facility] [address] [place] [address] 12/11/2024 11:00 AM EDT Office Visit Cardiology, [facility] [address] [place] [address] Yumiko Collazo CRNP [address] [place] [address] 01/28/2025 3:00 PM EDT Office Visit Family Practice [facility] [address] [facility] [place] [address] Hayden Lyman, DO [address] [facility] [place] [address] 04/09/2025 11:00 AM EDT Office Visit Urogynecology [facility] [address] [place] [address] Марина Childress PA-C [address] [place] [address] Pending Results Name Type Priority Associated Diagnoses Date /Time LIPID PANEL WITH DIRECT LDL IF TG IS HIGH Lab Routine Dyslipidemia, goal LDL below 130 11/07/2024 12:11 PM EST [facility] Lab Routine Encounter for long-term (current) use of medications 11/07/2024 12:11 PM EST Health Maintenance Due Date Last Done Comments Zoster Vaccines (1 of 2) 1999 Adult Wellness Visit 08/04/2023 08/04/2022, 03/22/20 21 Depression Monitoring 08/04/2023 08/04/2022 COVID-19 Vaccine ( season) 2024 07/28/2022, 11/22/2020, 10/25/2020 GFR 06/25/2024 11/07/2024, 06/02, 10/27/2022, Additional history exists DXA Scan 10/24/2024 10/24/2022, 10/02, 12/02/2014, Additional history exists Albumin/Creatinine Ratio 06/26/2025 06/26/2022 DTap/Tdap Vaccines (3 - Td or Tdap) 05/19/2029 05/19/2019, 02/19/2009 VITAMIN D LEVEL ONCE IN A LIFETIME-USE SMARTSET# [id number] Completed 07/06/2009, 02/01/2006 Pneumococcal Vaccine: 50+ Years [...] this encounter Medical Devices Implanted Type Area Machine Stemmer Device Identifier Shelf Expiration Date Model / Serial / Lot Sling Halo Needle [id number] - [id number] Implanted:Qty: 1 on 07/14/2009 at [place] [facility] [place] N/A: Urethra CR BARD : MEDICAL 03/31/2011 [id number] / / [id number] documented as of this encounter Procedures Procedure Name Priority Date/Time Associated Diagnosis Comments COMPREHENSIVE METABOLIC PANEL Routine 11/07/2024 12:11 PM EST Dyslipidemia, goal LDL below 130 documented in this encounter Results * COMPREHENSIVE METABOLIC PANEL (11/07/2024 12:11 PM EST) BUN 15 6 - 20 mg/dL 11/07/2024 3:49 PM EST [facility] [place] [facility] CREATININE 1.0 0.5 - 1.0 mg/dL 11/07/2024 3:49 PM EST [facility] [place] [facility] [facility] EGFR 60 >=60 mL/min 11/07/2024 3:49 PM EST [facility] [place] [facility] Comment:eGFR is calculated b ased on the CKD-EPI 2020 equation. SODIUM 141 135 - 146 mmol/L 11/07/2024 3:49 PM EST [facility] [place] [facility] [facility] POTASSIUM 4.2 3.5 - 5.1 mmol/L 11/07/2024 3:49 PM EST [facility] [place] [facility] [facility] CHLORIDE 103 98 - 107 mmol/L 11/07/2024 3:49 PM EST [facility] [place] [facility] [facility] CO2 27 22 - 32 mmol/L 11/07/2024 3:49 PM EST [facility] [place] [facility] [facility] ANION GAP 11 7 - 15 mmol/L 11/07/2024 3:49 PM EST [facility] [place] [facility] [facility] GLUCOSE 104 70 - 120 mg/dL 11/07/2024 3:49 PM EST [facility] [place] [facility] [facility] Albumin 4.1 3.8 - 5.0 g/dL 11/07/2024 3:49 PM EST [facility] [place] [facility] AST 19 10 - 35 U/L 11/07/2024 3:49 PM EST [facility] [place] [facility] [facility] Comment:Results may be false ly elevated due to hemolysis. Alkaline Phosphatase 85 35 - 130 U/L 11/07/2024 3:49 PM EST [facility] [place] [facility] Bilirubin, Total 0.5 <=1.2 mg/dL 11/07/2024 3:49 PM EST [facility] [place] [facility] CALCIUM 8.9 8.4 - 10.2 mg/dL 11/07/2024 3:49 PM EST [facility] [place] [facility] [facility] Protein 6.5 6.0 - 8.3 g/dL 11/07/2024 3:49 PM EST [facility] [place] [facility] [facility] ALT 15 10 - 35 U/L 11/07/2024 3:49 PM EST [facility] [place] [facility] [facility]10 Blood Venous blood specimen / Unknown Venipuncture / Unknown 11/07/2024 12:11 PM EST 11/07/2024 12:11 PM EST us Hayden Lyman DO LAB BLOOD ORDERABLES Final Result [facility] [place] [facility] [place] [address] documented in this encounter Visit Diagnoses Diagnosis Dyslipidemia, goal LDL below 130 Other and unspecified hyperlipidemia Encounter for long-term (current) use of medications Encounter for long-term (current) use of other medications documented in this encounter Advance Directives * [...] and were consensually agreed upon. Care Teams Manager Social Media Relationship Specialty Start Date End Date Hayden Lyman DO [address] [place] [address] PCP - General Family Medicine 04/05/17 documented as of this encounter
--- OUTSIDE RECORDS SUMMARY | 2025-01-24 02:19 | External Medical Summary | Summary of Care ---
Author Name Unknown Organization [facility] Address [address] [facility] [place] [address] Phone [phone] Care Team Providers Care Band Instrument Repairer Name Role Phone Hayden Lyman DO Primary Care Provider [phone] Encounter Details Date Type Department Care Team (Late st Contact Info) Description 11/24/2024 Orders Only PATIENT PORTAL DO NOT DELETE THIS DEPT USED BY [place] [id number] Allergies No known active allergiesdocumented as of this encounter (statuses as of 11/24/2024) Medications Cyanocobalamin (B-12) 1000 MCG CapsuleIndications :MTHFR [...] MG Oral Tablet (Coumadin)Indicati ons:Homozygous MTHFR mutation G6180P,History of pulmonary embolism,Anticoagu lation management encounter,rn long term care current use of anticoagulant therapy TAKE 1 [...] morning. In the morning.. 90 Tablet 1 5 Active Mirabegron ER 50 MG Oral Tablet Extended Release 24 Hour (Myrbetriq) Take 1 Tablet by mouth in the morning. 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 Calculus of gallbladder with out cholecystitis [...] as of this encounter (statuses as of 11/24/2024) Resolved Problems Problem Noted Date Diagnosed Date Resolved Date Cholelithiasis 03/28/2012 04/23/2015 MTHFR mutation 12/27/2011 10/07/2015 Overview (12/27/2011): Homozygous 1298C mutation Pulmonary embolus 11/23/2011 03/27/2013 Overview (02/05/2013): Hospitalized at [facility] 11/2011 Swelling, mass, or lump in chest 11/23/2011 08/01/2017 Routine medical exam 11/20/2011 018 rn long term care current use of ant icoagulant therapy 11/20/2011 [...] as of this encounter (statuses as of 11/24/2024) Immunizations Name Administration Dates Next Due COVID-19 [...] No 02/12/2024 Does the household have a [facility] source of income? 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 [address] [facility] [place] [address] Pharmacist1, [facility] [address] [place] [address] 12/11/2024 11:00 AM EDT Office Visit Cardiology, [facility] [address] [place] [address] Yumiko Collazo CRNP [address] [place] [address] 01/28/2025 3:00 PM EDT Office Visit Family Practice [facility] [address] [place] [address] Hayden Lyman, DO [address] [place] [address] 04/09/2025 11:00 AM EDT Office Visit Urogynecology [facility] [address] [place] [address] Марина Childress PA-C [address] [place] [address] Health Maintenance Due Date Last Done Comments Zoster Vaccines (1 of 2) 1999 Adult Wellness Visit 08/04/2023 08/04/2022, 06/22/20 21 Depression Monitoring 08/04/2023 08/04/2022 COVID-19 Vaccine ( season) 2024 07/28/2022, 11/22/2020, 10/25/2020 DXA Scan 10/24/2024 10/24/2022, 10/02, 12/02/2014, Additional history exists Albumin/Creatinine Ratio 06/26/2025 06/26/2022 GFR 11/07/2025 11/07/2024, 06/02, 10/27/2022, Additional history exists DTap/Tdap Vaccines (3 - Td or Tdap) 05/19/2029 05/19/2019, 02/19/2009 VITAMIN D LEVEL ONCE IN A LIFETIME-USE SMARTSET# 34984 Completed 07/06/2009, 02/01/2006 Pneumococcal Vaccine: 50+ Years [...] this encounter Medical Devices Implanted Type Area Financial Aid Device Identifier Shelf Expiration Date Model / Serial / Lot Sling Halo Needle [id number] - [id number] Implanted:Qty: 1 on 07/14/2009 at OR [facility] [place] N/A: Urethra CR BARD : MEDICAL 03/31/2011 [id number] / / [id number] documented as of this encounter Advance Directives [...] and were consensually agreed upon. Care Teams Band Instrument Repairer Relationship Specialty Start Date End Date Hayden Lyman DO [address] [place] [address] PCP - General Family Medicine 04/05/17 documented as of this encounter
--- OUTSIDE RECORDS SUMMARY | 2025-01-24 02:19 | External Medical Summary ---
Author Name Unknown Address Unknown Organization K09:[facility] [place] [address] Laboratory Report Ordering Provider Test Date Status JOVANIPEDRO V 10/15/2024 11:02:13 Final Therapeutic ranges for non-o perative patients:
Prophylaxsis/treatment of DVT: (Range:2.0-3.0)
Treatment of pulmonary embolism:(Range:2.0-3.0)
Prevention of systemic embolism from:
-tissue heart valves
-acute myocardial infarction
-valvular heart disease
-atrial fibrillation
(Range: 2.0-3.0)
Mechanical prosthetic valves: (Range: 2.5-3.5) Observation Date Value Abnormality Reference (Units ) Status INR in Capillary blood by Coagulation assay 10/15/2024 11:02:13 2.7 (INR) Final Performing Location [facility] [place] [id number]
--- OUTSIDE RECORDS SUMMARY | 2025-01-24 02:19 | External Medical Summary | Summary of Care ---
Author Name Unknown Organization [facility] Address [address] [facility] [place] [address] Phone [phone] Care Team Providers Care Manager Area Name Role Phone Shayla Nuñez DO Primary Care Provider [phone] Reason for Visit * Reason Onset Date Comments Medication Refill 11/20/2024 Encounter Details Date Type Department Care Team (Late st Contact Info) Description 11/20/2024 Refill Family Practice [facility] [place] [address] [place] [address] Shayla Nuñez DO [facility] [place] [address] Encounter for routine laboratory testing*; MTHFR mutation; Elevated homocysteine; Encounter for long-term (current) use of medications Allergies No known active allergiesdocumented as of this encounter (statuses as of 11/21/2024) Medications Cyanocobalamin (B-12) 1000 MCG CapsuleIndication s:MTHFR [...] MG Oral Tablet (Coumadin)Indicat ions:Homozygous MTHFR mutation D6839F,History of pulmonary embolism,Anticoag ulation management encounter,USP current [...] in the morning. 30 Tablet 5 5 Active Folic Acid 1 MG Oral TabletIndications :MTHFR mutation,Elevated homocysteine Take 1 Tablet by mouth in the morning. In the morning.. 90 Tablet 1 3 11/20/19 25 Discontin ued(Refil l) documented as of this encounter (statuses as of 11/21/2024) Active Problems Problem Noted Date Diagnosed Date Body mass index (BMI) of 45.0 to 49.9 in adult 1 Overview: Per Obesity protocol Age-related osteoporosis wit hout current pathological fracture 12/14/2023 Mild episode of recurrent major depressive disor rajesh 12/14/2023 Grief reaction 12/14/2023 ANDRES on CPAP 03/12/2019 Obesity hypoventilation syndrome 03/12/2019 Homozygous MTHFR mutation L2266L 10/07/2015 Calculus of gallbladder with out cholecystitis [...] as of this encounter (statuses as of 11/21/2024) Resolved Problems Problem Noted Date Diagnosed Date Resolved Date Cholelithiasis 03/28/2012 04/23/2015 MTHFR mutation 12/27/2011 10/07/2015 Overview (12/27/2011): Homozygous 1298C mutation Pulmonary embolus 11/23/2011 03/27/2013 Overview (02/05/2013): Hospitalized at [facility] 11/2011 Swelling, mass, or lump in chest 11/23/2011 08/01/2017 Routine medical exam 11/20/2011 018 USP current use of ant icoagulant therapy 11/20/2011 [...] as of this encounter (statuses as of 11/21/2024) Immunizations Name Administration Dates Next Due COVID-19 [...] 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 In the morning.. Authorizing Provider: SHAYLA NUÑEZ * Telephone Encounter - Yasmeen [facility] - 11/21/2024 10:11 AM ESTPending Prescriptions: Disp Refills Folic Acid 1 MG Oral Tablet 90 Tab*1 Sig: Take 1 Tablet by mouth in the morning. In the morning.. * Telephone Encounter - Yasmeen [facility] - 11/21/2024 10:11 AM EST Unable to authorize medication refills for pended medication(s) at this time. Part of the protocol criteria used for refill authorization was not satisfied. Patient needs CBC completed in past year. Please approve if appropriate. Thank You, Yasmeen [facility] Clinical Pharmacist [facility] ([facility]) [phone] [id number] 11/21/2024, 10:11 AM documented in this encounter Plan of Treatment Upcoming Encounters Date Type Department Care Team (Late st Contact Info) Description 11/26/2024 11:00 AM EST Anticoagulation Pharmacy, [facility] [address] [place] [address] [address] Pharmacist1, [facility] [address] [place] [address] 12/11/2024 11:00 AM EDT Office Visit Cardiology, [facility] [address] [facility] [place] [address] Yumiko Collazo CRNP [address] [facility] [place] [address] 01/28/2025 3:00 PM EDT Office Visit Family Practice [facility] [address] [place] [address] Shayla Nuñez DO [address] [place] [address] [address] 04/09/2025 11:00 AM EDT Office Visit Urogynecology [facility] [address] [place] [address] Марина Childress PA-C [address] [place] [address] Scheduled Orders Name Type Priority Associated Diagnoses Orde r Schedule CBC Lab Routine Encounter for long-term (current) use of medications Expected: 11/21/2024 (Approximate), Expires: 11/21/2025 Health Maintenance Due Date Last Done Comments [...] D LEVEL ONCE IN A LIFETIME-USE SMARTSET# 13788 Completed 07/06/2009, 02/01/2006 Pneumococcal Vaccine: 50+ Years [...] this encounter Medical Devices Implanted Type Area Wildlife Enforcement Major Device Identifier Shelf Expiration Date Model / Serial / Lot Sling Halo Needle [id number] - [id number] Implanted:Qty: 1 on 07/14/2009 at OR [place] N/A: Urethra CR BARD : MEDICAL 03/31/2011 [id number] / / [id number] documented as of this encounter Visit Diagnoses Diagnosis Encounter for routine laboratory testing- Primary Laboratory examination ordered as part of a routine general medical examination MTHFR mutation Disturbances of sulphur-bearing amino-acid metabolism Elevated homocysteine Disturbances of sulphur-bearing amino-acid metabolism Encounter for long-term (current) use of medications [...] were consensually agreed upon. Care Teams Manager Area Relationship Specialty Start Date End Date Shayla Nuñez DO [address] [place] [address] PCP - General Family Medicine 04/05/17 documented as of this encounter
--- OUTSIDE RECORDS SUMMARY | 2025-01-24 02:19 | External Medical Summary | Summary of Care ---
Author Name Unknown Organization [facility] Address [address] [facility] [place] [address] Phone [phone] Care Team Providers Care Photofinishing Laboratory Worker Name Role Phone Hayden Lyman DO Primary Care Provider [phone] Reason for Visit * Reason Comments Dosage Adjustment In Person (Anticoag Cl inic) Encounter Details Date Type Department Care Team (Latest Contact Info) Description 10/15/2024 11:00 AM [facility] Anticoagulation Pharmacy, [facility] [address] [facility] [place] [address] Pharmacist1, [facility] [address] [facility] [place] [address] History of pulmonary embolism*; Anticoagulation management encounter Allergies No known active allergiesdocumented as of this encounter (statuses as of 10/15/2024) Medications Cyanocobalamin (B-12) 1000 MCG CapsuleIndications :MTHFR [...] the morning.. 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 100 Tablet 1 08/11/2024 6:09 PM EST 4 Active amLODIPine Besylate 2.5 MG Oral Tablet (Norvasc)Indicatio ns:HTN, goal below 140/90 Take 1 Tablet by mouth in the morning. 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 Calculus of gallbladder with out cholecystitis [...] as of this encounter (statuses as of 10/15/2024) Resolved Problems Problem Noted Date Diagnosed Date Resolved Date Cholelithiasis 03/28/2012 04/23/2015 MTHFR mutation 12/27/2011 10/07/2015 Overview (12/27/2011): Homozygous 1298C mutation Pulmonary embolus 11/23/2011 03/27/2013 Overview (02/05/2013): Hospitalized at [facility] 11/2011 Swelling, mass, or lump in chest 11/23/2011 08/01/2017 Routine medical exam 11/20/2011 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 Description (Takes 9:30 AM) Patient Findings Positives: Change in medications (Myrbetriq increased to 50mg daily. Fosamax 70mg started also.) Negatives: Signs/symptoms of thrombosis, Signs/symptoms of bleeding, Change in health, Change in alcohol use, Change in activity, Upcoming invasive procedure, Missed doses, Extra doses, Change in diet/appetite, Bruising INR Result As of 10/15/2024 INR goal: 2.0-3.0 INR used for dosin.7 (10/15/2024) Warfarin Plan As of 10/15/2024 Full warfarin instructions: 2.5 mg every Mon, Fri; 5 mg all other days Next INR check: 11/26/2024 Repeat PT/INR in 6 week(s) Weekly dose: not changed I spent a total of 10-19 minutes (exact time 15 mins) on the date of service in preparation, delivery, and documentation of the care provided to Jenniffer Dumont excluding any time spent in the performance of separately billed services or time spent by another provider/QHP. Иван Chin RPh, [facility] Clinical Pharmacist Medication Therapy Disease Management 10/15/2024, 11:04 AM documented in this encounter Plan of Treatment Upcoming Encounters Date Type Department Care Team (Late st Contact Info) Description 11/26/2024 11:00 AM EST Anticoagulation Pharmacy, [facility] [place] [address] [place] [address] [address] Pharmacist1, [facility] [address] [place] [address] 12/11/2024 11:00 AM EDT Office Visit Cardiology, [facility] [address] [facility] [place] [address] Yumiko Collazo CRNP [address] [place] [address] 01/28/2025 3:00 PM EDT Office Visit Family Practice [facility] [address] [facility] [place] [address] Hayden Lyman DO 200 [facility] [place] [address] 04/09/2025 11:00 AM EDT Office Visit Urogynecology [facility] [address] [place] [address] Марина Childress PA-C [address] [place] [address] Health Maintenance Due Date Last Done Comments [...] D LEVEL ONCE IN A LIFETIME-USE SMARTSET# [id number] Completed 07/06/2009, 02/01/2006 Pneumococcal Vaccine: 50+ Years [...] this encounter Medical Devices Implanted Type Area Cloth Printer Helper Device Identifier Shelf Expiration Date Model / Serial / Lot Sling Halo Needle [id number] - [id number] Implanted:Qty: 1 on 07/14/2009 at [place] [facility] [place]/A: Urethra CR BARD : MEDICAL 03/31/2011 [id number] / / [id number] documented as of this encounter Procedures Procedure Name Priority Date/Time Associated Diagnosis Comments INR FINGERSTICK, POINT OF CARE STAT 10/15/2024 11:02 AM EST History of pulmonary embolism Anticoagulation management encounter documented in this encounter Results * INR FINGERSTICK, POINT OF CARE (10/15/2024 11:02 AM EST) Fingerstick INR 2.7 INR 11:05 AM EST [facility] 56-02 Blood 10/15/2024 11:0 2 AM EST 10/15/2024 11:05 AM EST Narrative [facility] 56-02 - 10/15/2024 11:05 AM EST Therapeutic ranges for non-operative patients: Prophylaxsis/treatment of DVT: (Range:2.0-3.0) Treatment of pulmonary embolism:(Range:2.0-3.0) Prevention of systemic embolism from: -tissue heart valves -acute myocardial infarction -valvular heart disease -atrial fibrillation (Range: 2.0-3.0) Mechanical prosthetic valves: (Range: 2.5-3.5) Иван Chin V, [facility] LAB POINT OF CARE TE ST DOCKED DEVICE UNSOLICITED RESULTS Final Result [facility] [address]- [address] [place] [address] documented in this encounter Visit Diagnoses Diagnosis [...] and were consensually agreed upon. Care Teams Photofinishing Laboratory Worker Relationship Specialty Start Date End Date Hayden Lyman DO [facility] [address] PCP - General Family Medicine 04/05/17 documented as of this encounter
--- OUTSIDE RECORDS SUMMARY | 2025-01-24 02:19 | External Medical Summary | Summary of Care ---
Author Name Unknown Organization [facility] Address [address] [facility] [place] [address] Phone [phone] Care Team Providers Care Outpatient Receptionist Name Role Phone Hayden Lyman DO Primary Care Provider [phone] Reason for Visit * Reason Onset Date Comments Precert Denied 08/27/2024 GEMTESA 75 MG TA BLET Status Check 08/27/2024 Encounter Details Date Type Department Care Team (Late st Contact Info) Description 08/27/2024 Telephone Urology, [facility] [address] [facility] [address] [place] [address] Марина Childress PA-C [address] [facility] [place] [address] Precert Denied (GEMTESA 75 MG TABLET); Sta... [...] MG Oral Tablet (Coumadin)Indicat ions:Homozygous MTHFR mutation R3276H,History of pulmonary embolism,Anticoag ulation management encounter,shelter current use of anticoagulant therapy TAKE 1 [...] Obesity hypoventilation syndrome 03/12/2019 Homozygous MTHFR mutation J6307J 10/07/2015 Calculus of gallbladder with out cholecystitis [...] 11/23/2011 03/27/2013 Overview (02/05/2013): Hospitalized at [facility] 11/2011 Swelling, mass, or lump in chest 11/23/2011 08/01/2017 Routine medical exam 11/20/2011 018 shelter current use of ant icoagulant therapy 11/20/2011 [...] Industry 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 Please make patient aware. Thanks! * Telephone Encounter - Mary Ann Wilson LPN - 09/18/2024 11:40 AM EST Please send to uro/alpine patroller nurses Thank you Mary Ann Wilson LPN * Telephone Encounter - Maya De CPhT - 09/18/2024 11:28 AM EST Pt calling to check on status of an alternative medication because Gemtesa 75 MG Oral Tablet (Vibegron) was denied by her insurance. Caller can be reached at [phone]. Thank you, Arline De CPhT Manufacturing Intern III [facility] ([facility]) [address] [place] [address], [address] [place] [address] [phone] * Telephone Encounter - Maya De CPhT - 09/02/2024 10:54 AM EST Pt calling to check on status of the PA for Gemtesa 75 MG Oral Tablet (Vibegron) . Caller can be reached at [phone]. Thank you, Arline De CPhT Manufacturing Intern III [facility] ([facility]) [address] [place] [address], [address] [place] [address] [phone] * Telephone Encounter - Suki Wilson OSA - 08/29/2024 8:45 AM EST UroGyn's Medicine Pre-Cert Request Medication/Disease State Information: Medication: Gemtesa (75 mg tablet) Take 75 mg once daily. [place] p [id number] Diagnosis (including ICD-10): Mixed Stress and Urge [...] follows: Patient name: Jenniffer Dumont ID number: [id number] BIN number: [id number] PCN number: [id number] Group number: [id number] Subscriber name: Jenniffer Dumont Primary or Secondary Insurance:Primary Medication: gemtasa Reason for Request: prior auth Pharmacy and phone number: [facility] [phone] Rx plan and phone number: [facility] [phone] Is this a new medication for the patient? Yes What alternative medications does the pharmacy have in stock?: n/a Thank you, Elsa Hsu CPhT Inside Outside Sales Representative II [facility] ([facility]) 08/27/2024,2:42 PM documented in this encounter Plan of Treatment Upcoming Encounters Date Type Department Care Team (Late st Contact Info) Description 10/10/2024 2:50 PM EST Office Visit Urogynecology [facility] [address] [place] [address] Марина Childress PA-C [address] [place] [address] 10/15/2024 11:00 AM EST Anticoagulation Pharmacy, [facility] 200 [facility] [place] [address] Pharmacist1, [facility] [address] [place] [address] 12/11/2024 11:00 AM EDT Office Visit Cardiology, [facility] [address] [place] [address] Yumiko Collazo CRNP [address] [place] [address] 01/28/2025 3:00 PM EDT Office Visit Family Practice [facility] 200 [facility] [place] [address] Hayden Lyman, DO 200 [facility] [place] [address] Health Maintenance Due Date Last Done Comments [...] D LEVEL ONCE IN A LIFETIME-USE SMARTSET# [id number] Completed 07/06/2009, 02/01/2006 Pneumococcal Vaccine: 65+ Years [...] this encounter Medical Devices Implanted Type Area Chief Guard Device Identifier Shelf Expiration Date Model / Serial / Lot Sling Halo Needle [id number] - [id number] Implanted:Qty: 1 on 07/14/2009 at OR [facility] [place] N/A: Urethra CR BARD : MEDICAL 03/31/2011 [id number] / / [id number] documented as of this encounter Advance Directives [...] and were consensually agreed upon. Care Teams Outpatient Receptionist Relationship Specialty Start Date End Date Hayden Lyman DO [address] [place] [address] PCP - General Family Medicine 04/05/17 documented as of this encounter
--- OUTSIDE RECORDS SUMMARY | 2025-01-24 02:19 | External Medical Summary | Summary of Care ---
Author Name Unknown Organization [facility] Address [address] [facility] [place] [address] Phone [phone] Care Team Providers Care Elementary Education Tutor Name Role Phone Hayden Lyman DO Primary Care Provider Encounter Details Date Type Department Care Team (Late st Contact Info) Description 10/22/2024 Population Health External Data Unspecified Department Allergies No known active allergiesdocumented as of this encounter (statuses as of 10/22/2024) Medications Cyanocobalamin (B-12) 1000 MCG CapsuleIndications :MTHFR [...] MG Oral Tablet (Coumadin)Indicati ons:Homozygous MTHFR mutation [id number],History of pulmonary embolism,Anticoagu lation management encounter,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 100 Tablet 1 08/11/2024 6:09 PM EST 4 Active amLODIPine Besylate 2.5 MG Oral Tablet (Norvasc)Indicatio ns:HTN, goal below 140/90 Take 1 Tablet by mouth in the morning. 90 Tablet 3 10/15/2024 2:04 PM EST 5 Active documented as of this encounter (statuses as of 10/22/2024) Active Problems Problem Noted Date Diagnosed Date Body mass index (BMI) of 45.0 to 49.9 in adult 1 Overview: Per Obesity protocol Age-related osteoporosis wit hout current pathological fracture 12/14/2023 Mild episode of recurrent major depressive disor rajesh 12/14/2023 Grief reaction 12/14/2023 ANDRES on CPAP 03/12/2019 Obesity hypoventilation syndrome 03/12/2019 Homozygous MTHFR mutation [id number] 10/07/2015 Calculus of gallbladder with out cholecystitis [...] as of this encounter (statuses as of 10/22/2024) Resolved Problems Problem Noted Date Diagnosed Date Resolved Date Cholelithiasis 03/28/2012 04/23/2015 MTHFR mutation 12/27/2011 10/07/2015 Overview (12/27/2011): Homozygous 1298C mutation Pulmonary embolus 11/23/2011 03/27/2013 Overview (02/05/2013): Hospitalized at [facility] 11/2011 Swelling, mass, or lump in chest 11/23/2011 08/01/2017 Routine medical exam 11/20/2011 018 prison current use of ant icoagulant therapy 11/20/2011 [...] as of this encounter (statuses as of 10/22/2024) Immunizations Name Administration Dates Next Due COVID-19 [...] 02/12/2024 Does the household have a re lar source of income? 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 [address] [place] [address] Yumiko Collazo CRNP [address] [place] [address] 01/28/2025 3:00 PM EDT Office Visit Family Practice [facility] [address] [facility] [place] [address] Hayden Lyman, DO [address] [facility] [place] [address] 04/09/2025 11:00 AM EDT Office Visit Urogynecology [facility] [address] [place] [address] Марина Childress PA-C [address] [place] [address] Health Maintenance Due Date Last Done Comments [...] D LEVEL ONCE IN A LIFETIME-USE SMARTSET# [id number] Completed 07/06/2009, 02/01/2006 Pneumococcal Vaccine: 50+ Years [...] this encounter Medical Devices Implanted Type Area Molding Press Operator Device Identifier Shelf Expiration Date Model / Serial / Lot Sling Halo Needle [id number] - [id number] Implanted:Qty: 1 on 07[place]14[place] [facility] Urethra CR BARD : MEDICAL 03/31/2011 [id number] / / [id number] documented as of this encounter Advance Directives [...] and were consensually agreed upon. Care Teams Elementary Education Tutor Relationship Specialty Start Date End Date Hayden Lyman DO [address] [place] [address] PCP - General Family Medicine 04/05/17 documented as of this encounter
--- OUTSIDE RECORDS SUMMARY | 2025-01-24 02:19 | External Medical Summary | Summary of Care ---
Author Name Unknown Organization [facility] Address [address] [facility] [place] [address] Phone [phone] Care Team Providers Care Hog Trader Name Role Phone Hayden Lyman DO Primary Care Provider Reason for Visit * Reason Comments Follow Up Encounter Details Date Type Department Care Team (Late st Contact Info) Description 10/10/2024 2:50 PM EST Office Visit Urogynecology [facility] [address] [place] [address] Марина Childress PA-C [address] [place] [address] Mixed incontinence*; Urinary frequency; Rectocele Allergies No known active allergiesdocumented as of this encounter (statuses as of 10/13/2024) Medications Cyanocobalamin (B-12) 1000 MCG CapsuleIndication s:MTHFR [...] MG Oral Tablet (Coumadin)Indicat ions:Homozygous MTHFR mutation G0871A,History of pulmonary embolism,Anticoag ulation management encounter,[facility] plasma center current use of anticoagulant therapy TAKE 1 TABLET BY MOUTH DAILY OR DIRECTED BY ANTICOAG CLINIC. 100 Tablet 1 08/11/2024 6:09 PM EST 4 Active Mirabegron ER 25 MG Oral Tablet Extended Release 24 Hour (Myrbetriq) Take 1 Tablet by mouth in the morning. 30 Tablet 11 09/19/2024 11:48 AM EST 4 10/10/19 25 Discontin ued(Medic ation/Dos e Changed) documented as of this encounter (statuses as of 10/13/2024) Active Problems Problem Noted Date Diagnosed Date Body mass index (BMI) of 45.0 to 49.9 in adult 1 Overview: Per Obesity protocol Age-related osteoporosis wit hout current pathological fracture 12/14/2023 Mild episode of recurrent major depressive disor rajesh 12/14/2023 Grief reaction 12/14/2023 ANDRES on CPAP 03/12/2019 Obesity hypoventilation syndrome 03/12/2019 Homozygous MTHFR mutation [id number] 10/07/2015 Calculus of gallbladder with out cholecystitis [...] as of this encounter (statuses as of 10/13/2024) Resolved Problems Problem Noted Date Diagnosed Date Resolved Date Cholelithiasis 03/28/2012 04/23/2015 MTHFR mutation 12/27/2011 10/07/2015 Overview (12/27/2011): Homozygous 1298C mutation Pulmonary embolus 11/23/2011 03/27/2013 Overview (02/05/2013): Hospitalized at [facility] 11/2011 Swelling, mass, or lump in chest 11/23/2011 08/01/2017 Routine medical exam 11/20/2011 018 [facility] current use of ant icoagulant therapy 11/20/2011 [...] as of this encounter (statuses as of 10/13/2024) Immunizations Name Administration Dates Next Due COVID-19 [...] Date Smoking Tobacco: Never Smokeless Tobacco: Never Tobacco Cessation:Counseling Given: Not Answered Alcohol Use Standard Drinks/Week Comments No 0 [...] Industry 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 She was previously seen for (N39.46) Mixed incontinence (primary encounter diagnosis) (R35.0) Urinary frequency (N81.6) Rectocele Since last seen, she has started Myrbetriq 25mg daily 2 weeks ago and she has also reduced caffeineintake. She reports urgency is improved. She states incontinence has improved, states not as frequent and its a lesser amount. She continues to use 3-4 pads daily, changing when damp with urine. Daytime frequency every 3-4 hours. Nocturia 1x nightly. She notes she wakes up damp every morning. Denies sense of incomplete bladder emptying. Bowels moving well. Review of patient's allergies indicates: No Known [...] min after taking tablet 5 Tablet 11 Folic Acid 1 MG Oral Tablet Take 1 Tablet by mouth in the morning. In the morning.. 90 Tablet 1 amLODIPine Besylate 2.5 MG Oral Tablet (Norvasc) Take 1 Tablet by mouth in the morning. 90 Tablet 3 Furosemide 20 MG Oral Tablet (Lasix) Take 1 Tablet by mouth in the morning. 90 Tablet 3 Atorvastatin Calcium 40 MG Oral Tablet (Lipitor) Take 1 Tablet by mouth in the morning. 90 Tablet 3 Escitalopram Oxalate 10 MG Oral Tablet (Lexapro) Take 1 Tablet by mouth in the morning. 30 Tablet 5 Wuzfqedg-Qzcwzlfux-XO Ophthalmic Suspension Instill 1 Drop into affected eye in the morning, 1 Dropat noon, 1 Drop in the evening and 1 Drop before bedtime 7.5 mL 0 Lisinopril 20 MG Oral Tablet (Prinivil) Take 1 Tablet by mouth in the morning. 100 Tablet 1 Warfarin Sodium 5 MG Oral Tablet (Coumadin) TAKE 1 TABLET BY MOUTH DAILY OR DIRECTED BY ANTICOAGCLINIC. 100 Tablet 1 Mirabegron ER 25 MG Oral Tablet Extended Release 24 Hour (Myrbetriq) Take 1 Tablet by mouth in the morning. 30 Tablet 11 No current facility-administered medications for this visit. ROS: Per HPI Impression: This is a 74 year old with (N39.46) Mixed incontinence (primary encounter diagnosis) (R35.0) Urinary frequency (N81.6) Rectocele Plan: Continue limiting caffeine intake and practicing daily kegel exercises. Increase to Myrbetriq ER 50mg daily. She would like to hold off on new script at this time due to finances. She will start with taking 2 tabs of her Myrbetriq ER 25mg daily. She will contact the office when in need for refill and will send for 50mg tablets at that time. Briefly discussed third line therapies including botox treatments or sacral nerve modulation. RTC in 6 months or sooner as needed. I spent a total of 20-29 minutes (exact time 20 mins) on the date of service in preparation, delivery, and documentation of the care provided to Jenniffer Dumont excluding any time spent in the performance of separately billed services. Марина Childress PA-C 10/10/2024 2:55 PM Марина Childress PA-C Urogynecology [address] [place] [address] documented in this encounter Nursing Notes * Nafisa Jade, MED ASSIST - 10/10/2024 2:49 PM EST Pt presents to the clinic follow up. Feels Portera is working well. No concerns. documented in this encounter Plan of Treatment Upcoming Encounters Date Type Department Care Team (Late st Contact Info) Description 10/15/2024 11:00 AM EST Anticoagulation Pharmacy, [facility] [address] [facility] [place] [address] Pharmacist1, [facility] [address] [facility] [place] [address] 12/11/2024 11:00 AM EDT Office Visit Cardiology, [facility] [address] [place] [address] Yumiko Collazo CRNP [address] [place] [address] 01/28/2025 3:00 PM EDT Office Visit Family Practice [facility] [address] [facility] [place] [address] Hayden Lyman, DO [address] [facility] [place] [address] 04/09/2025 11:00 AM EDT Office Visit Urogynecology [facility] [address] [place] [address] Марина Childress PA-C [address] [place] [address] Health Maintenance Due Date Last Done Comments [...] D LEVEL ONCE IN A LIFETIME-USE SMARTSET# [id number] Completed 07/06/2009, 02/01/2006 Pneumococcal Vaccine: 50+ Years [...] this encounter Medical Devices Implanted Type Area Cyber Defense Forensics Analyst Device Identifier Shelf Expiration Date Model / Serial / Lot Sling Halo Needle [id number] - [id number] [place]planted:[place] 1 on 07[place]14[place] [facility] [place] Urethra CR BARD : MEDICAL 03/31/2011 [id number] / / [id number] documented as of this encounter Visit Diagnoses Diagnosis Mixed incontinence- Primary Mixed incontinence urge and stress (male)(female) Urinary frequency Rectocele documented in this encounter Advance Directives * [...] and were consensually agreed upon. Care Teams Hog Trader Relationship Specialty Start Date End Date Hayden Lyman DO [address] [place] [address] PCP - General Family Medicine 04/05/17 documented as of this encounter
--- OUTSIDE RECORDS SUMMARY | 2025-01-24 02:19 | External Medical Summary | Summary of Care ---
Author Name Unknown Organization [facility] Address [address] [facility] [place] [address] Phone [phone] Care Team Providers Care Php Programmer Name Role Phone Hayden Lyman DO Primary Care Provider [phone] Reason for Visit * Reason Comments Medication Refill Encounter Details Date Type Department Care Team (Late st Contact Info) Description 10/12/2024 Refill Cardiology, 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 100 Tablet 1 08/11/2024 6:09 PM EST 4 Active amLODIPine Besylate 2.5 MG Oral Tablet (Norvasc)Indicati ons:HTN, goal below 140/90 Take 1 Tablet by mouth in the morning. 90 Tablet 3 5 Active amLODIPine Besylate 2.5 MG Oral Tablet (Norvasc)Indicati ons:HTN, goal below 140/90 Take 1 Tablet by mouth in the morning. 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 file Not on 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 Not on file Not on file documented as of this encounter Miscellaneous Notes * Telephone Encounter - Ryan Jenkins [facility] - 10/13/2024 7:18 PM EST Signed Prescriptions: Disp Refills amLODIPine Besylate 2.5 MG Oral Tablet (No*90 Tab*3 Sig: Take 1 Tablet by mouth in the morning.Authorizing Provider: YUMIKO BAXTER User: RYAN JENKINS documented in this encounter Plan of Treatment Upcoming Encounters Date Type Department Care Team (Late st Contact Info) Description 10/15/2024 11:00 AM EST Anticoagulation Pharmacy, [facility] [address] [place] [address] Pharmacist1, [facility] [address] [facility] [place] [address] 12/11/2024 11:00 AM EDT Office Visit Cardiology, [facility] [address] [place] [address] Yumiko Baxter CRNP [address] [place] [address] 01/28/2025 3:00 PM EDT Office Visit Family Practice [facility] [address] [place] [address] Hayden Lyman, DO [address] [place] [address] 04/09/2025 11:00 AM EDT Office Visit Urogynecology [facility] [address] [place] [address] Марина Childress PA-C [address] [place] [address] Health Maintenance Due Date Last Done Comments [...] D LEVEL ONCE IN A LIFETIME-USE SMARTSET# [id number] Completed 07/06/2009, 02/01/2006 Pneumococcal Vaccine: 50+ Years [...] this encounter Medical Devices Implanted Type Area Tableau Developer Device Identifier Shelf Expiration Date Model / Serial / Lot Sling Halo Needle [id number] - [id number] Implanted:Qty: 1 on 07/14/2009 at [place] [facility] N/A: Urethra CR BARD : MEDICAL 03/31/2011 [id number] / / [id number] documented as of this encounter Visit Diagnoses Diagnosis HTN, goal below 140/90 Unspecified essential hypertension documented in this encounter Advance Directives * [...] and were consensually agreed upon. Care Teams Php Programmer Relationship Specialty Start Date End Date Hayden Lyman DO [address] [place] [address] PCP - General Family Medicine 04/05/17 documented as of this encounter
--- OUTSIDE RECORDS SUMMARY | 2025-01-24 02:20 | External Medical Summary ---
Author Name Unknown Address Unknown Organization [facility] [address] [place] [address] Laboratory Report Ordering Provider Test Date Status CHRIS ADLER 08/25/2024 13:53:00 Final Observation Date Value Abnormality Reference (Units ) Status Color of Urine by Auto 08/25/2024 13:53:00 Yellow Light Yellow, Yellow Final Clarity, Urine 08/25/2024 13:53:00 Clear Clear Final Glucose [Mass/volume] in Urine by Automated test strip 08/25/2024 13:53:00 Negative Negative (mg/dL) Final Bilirubin.total [Presence] in Urine by Automated test strip 08/25/2024 13:53:00 Negative Negative Final Ketones [Mass/volume] in Urine by Automated test strip 08/25/2024 13:53:00 Trace Abnormal Negative (mg/dL) Final Specific gravity, Urine 08/25/2024 13:53:00 1.020 1.003-1.030 Final Hemoglobin [Presence] in Urine by Automated test strip 08/25/2024 13:53:00 Negative Negative Final pH, Urine 08/25/2024 13:53:00 6.0 5.0, 5.5, 6.0, 6.5, 7.0, 7.5 (units) Final Protein [Mass/volume] in Urine by Automated test strip 08/25/2024 13:53:00 Negative Negative (mg/dL) Final Urobilinogen, Urine 08/25/2024 13:53:00 1.0 0.2, 1.0 (mg/dL) Final Nitrite [Presence] in Urine by Automated test strip 08/25/2024 13:53:00 Positive Abnormal Negative Final Leukocyte esterase [Presence] in Urine by Automated test strip 08/25/2024 13:53:00 Trace Abnormal Negative Final Performing Location [facility] [place] [address] [place] [address]
--- OUTSIDE RECORDS SUMMARY | 2025-01-24 02:20 | External Medical Summary | Summary of Care ---
Author Name Unknown Organization [facility] Address [address] [facility] [address] Phone [phone] Care Team Providers Care Station Cleaning Porter Name Role Phone Hayden Lyman DO Primary Care Provider [phone] Reason for Visit * Reason Comments NEW PATIENT * Evaluate & Treat - Unlimited Visits (Within 10 days (routine)) - Authorized Specialty Diagnoses / Procedures Referred By Merlene morris Referred To Contact MACHINIST HELPER - Urogynecology / Gynecology Urology Diagnoses Female stress incontinence Hayden Lyman DO [address] [place] [address] Phone: tel: fax: Referral ID Status Reason Start Date Expiration Date Visits Requested Visits Authorized [id number] Authorized Specialty Services Required 07/02/[phone] Encounter Details Date Type Department Care Team (Late st Contact Info) Description 08/25/2024 1:15 PM EST Office Visit Urogynecologaleshia Montanez [address] [place] [address] Марина Childress PA-C [address] [place] [address] Nurse Faye Montanez [address] [place] [address] Mixed incontinence*; Rectocele; Urinary frequency Allergies No known active allergiesdocumented as of this encounter (statuses as of 08/26/2024) Medications Cyanocobalamin (B-12) 1000 MCG CapsuleIndications :MTHFR [...] 4 Active Furosemide 20 MG Oral Tablet (Lasix)Indications [...] MG Oral Tablet (Coumadin)Indicati ons:Homozygous MTHFR mutation [id number],History of pulmonary embolism,Anticoagu lation management 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 100 Tablet 1 08/11/2024 6:09 PM EST 4 Active Gemtesa 75 MG Oral Tablet (Vibegron)Indicati ons:Mixed incontinence,Urina ry frequency Take 1 Tablet by mouth in the morning. 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 Calculus of gallbladder with out cholecystitis [...] as of this encounter (statuses as of 08/26/2024) Resolved Problems Problem Noted Date Diagnosed Date Resolved Date Cholelithiasis 03/28/2012 04/23/2015 MTHFR mutation 12/27/2011 10/07/2015 Overview (12/27/2011): Homozygous 1298C mutation Pulmonary embolus 11/23/2011 03/27/2013 Overview (02/05/2013): Hospitalized at [facility] 11/2011 Swelling, mass, or lump in chest 11/23/2011 08/01/2017 Routine medical exam 11/20/2011 018 [facility] current use of ant icoagulant therapy 11/20/2011 [...] as of this encounter (statuses as of 08/26/2024) Immunizations Name Administration Dates Next Due COVID-19 [...] Industry 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 Wilyignshekhar complains of urinary incontinence that mainly occurs after she has a slight urge to go to the bathroom and she stands up from a seated position. She also has leakage without awareness, with coughing and overnight while sleeping. She has had incontinence issues for over 15 years but it has become more bothersome in the last few months. Daytime frequency every 15 mins - 2 hours with occasional mild urgency. She wakes twice nightly to use the bathroom, both times her pad is damp and she changes the pad. She denies feeling of incomplete bladder emptying. She had normal daily bowel movements. She drinks 1 cup half caff coffee daily, 2 glasses ice tea daily, occasional soda. She is most b othered by the leakage that occurs without awareness as well as with standing up from seated position after she has slight urge to urinate. Had trans obturator sling placed in 2008. 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 She felt the sling never really improved symptoms. Patient was referred by Hayden Lyman DO. Urinary: She leaks with coughing, getting up, with urgency and without awareness. Overall, she leaks moderately every day. She uses over six heavy pads daily for protection. She denies a sense of incomplete bladder emptying. Prior/current treatment include: transobturator sling UTI: She denies recent UTIs. Voiding detail: Daytime frequency: every 15 mins - 2 hours Urgency: occasional Nocturia: 2x nightly Hesitancy: no Straining: no Hematuria: no Postvoid dribbling: no Postvoid urgency: no Manual reduction: no Drinks: 1 cup half caff coffee, 2 glasses ice tea daily, occasional soda, juice Prolapse: She denies a palpable bulge. GI: Bowel habits: normal bowel movement She denies fecal incontinence. 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 Past Surgical History: Procedure Laterality Date BLADDER CATH INSERTION,TEMP INDWELL, SIMPLE 07/14/09 INSERTION TEMPORARY INDWELLING CATHETER SIMPLE performed by MÓNICA NOONAN [place] [facility] BREAST LESION,OTHER,EXCISION Left 06/18/08 Excision left breast mass (fat necrosis) - Dr. Schaffer CYSTOSCOPY 07/14/09 CYSTOURETHROSCOPY performed by MÓNICA NOONAN [place] [facility] DEXA SCAN/BONE MINERAL AXIAL 11/27/2002 normal repeat in 3 years recommended DEXA SCAN/BONE MINERAL AXIAL 01/29/2006 5.6% loss at hip, repeat in 2 years on therapy MAMMOGRAM SCREENING-BILATERAL 12/12/2002 normal bi rad 1, repeat in one year MAMMOGRAM SCREENING-BILATERAL 1.25.07 benign findings, yearly mammograms appropriate, birad code 2 REMOVAL OF TONSILS, AGE 12+ age 15 REPAIR BLADDER DEFECT 07/14/09 VAGINAL SLING PROCEDURE FOR STRESS INCONTINENCE performed by MÓNICA NOONNA at [place] [facility] TOTAL ABD HYSTERECTOMY W/WO REMOVAL OF TUBE(S) [facility] Cristina Review of patient's allergies indicates: No Known [...] mouth in the morning. 30 Tablet 5 Vpbayaxu-Whtimvxos-IW Ophthalmic Suspension Instill 1 Drop into affected [...] OR DIRECTED BY ANTICOAGCLINIC. 100 Tablet 1 No current facility-administered medications for this visit. Family History Problem Relation Name Age of Onset Alzheimer's disease Mother Prostate cancer Brother Jorge A 62 Diabetes Brother Jorge A Other (angioplasty) Brother Jorge A Farr Breast Cancer Granddaughter 24 ROS: ROS was performed. Pertinent positives and negatives are documented in the HPI. All others were negative or non contributory. Constitutional: no weight loss, weakness or fatigue Head: no headache Eyes: no worsening of vision Resp: no recent change in breathing Cardiac: no chest pain, palpitations, dyspnea on exertion Breast: no breast lumps, masses, nipple discharge GI: no heartburn, diarrhea, constipation, nausea, vomiting, appetite OK Musculoskeletal: no significant joint/muscle pain or swelling Female : as per HPI Neuro: no weakness, numbness or tingling Psych: denies feeling down, depressed or hopeless in past month, denies being bothered by little interest or pleasure in doing things in past month and no insomnia Heme: no fever, no chills, no sweats and no bleeding/bruising Endo: no unplanned weight change, diaphoresis or hot/cold intolerance Skin: no rash, no itching and no new/changing skin lesion Wt 128.4 kg (283 lb) | BMI 47.84 kg/m² | BSA 2.42 m² GENERAL: alert, healthy, no distress, well nourished and well developed SKIN: Skin color normal. No rashes or significant lesions HEART: No cyanosis. Normal peripheral pulses. LUNG: No increased respiratory effort. ABDOMEN: abdomen soft, non-tender PELVIC: Normal external female genitalia. Clitoris, labia, minor vestibular glands and urethral meatus appear normal. Urethra and bladder palpated non- tender with no masses and no expressible exudate. Vagina atrophic without lesions. BIMANUAL EXAM: no cervical motion tenderness, the uterus is smooth, mobile, non tender and of normal size. No adnexal masses or tenderness elicited. Levator ani muscle strength 3. No tenderness elicited on palpation Aa -3 Ba -3 C GH 4 PB 3 TVL 8 Ap -1 Bp -1 D PVR: 0 ml via bladder scan Impression: (N39.46) Mixed incontinence (primary encounter diagnosis) (R35.0) Urinary frequency (N81.6) Rectocele Plan: Discussed limiting caffeine intake and practicing daily kegel exercises. Discussed OAB medications, patient would like to start with Gemtesa 75mg daily. Risks, benefits andalternatives reviewed. Briefly discussed third line therapies including botox treatments or sacral nerve modulation as possible future options. For CRISTINO, discussed daily Kegel exercises vs. Pelvic floor PT vs. incontinence ring pessary vs. surgical intervention with mid-urethral sling; risks, benefits and success rates reviewed. Surgical risks reviewed including bleeding, infection, injury, mesh exposure and urinary retention. All questionsanswered. Patient would like to start with Gemtesa 75mg daily, limiting caffeine intake and practicing daily kegel exercises. RTC in 6 weeks or sooner as needed. I spent a total of 40-54 minutes (exact time 40 mins) on the date of service in preparation, delivery, and documentation of the care provided to Jenniffer Dumont excluding any time spent in the performance of separately billed services. Марина Childress PA-C 08/25/2024 1:39 PM Марина Childress PA-C Urogynecology [facility] [address] [place] [address] documented in this encounter Nursing Notes * Sadie Shetty CMA - 08/25/2024 1:30 PM EST Patient present today for stress incontinence. Leaking when coughing, laughing, sneezing. Denies pain or bleeding. Feels like bladder is emptying. Denies bowel concerns. Wakes up x2 throughout the night. documented in this encounter Plan of Treatment Upcoming Encounters Date Type Department Care Team (Late st Contact Info) Description 09/01/2024 11:40 AM EST Anticoagulation Pharmacy, [facility] [place] [address] [facility] [place] [address] Pharmacist1, [facility] [address] [facility] [place] [address] 10/10/2024 2:50 PM EST Office Visit Urogynecology [facility] [address] [place] [address] Марина Childress PA-C [address] [place] [address] 12/11/2024 11:00 AM EDT Office Visit Cardiology, [facility] [address] [place] [address] Yumiko Collazo CRNP [address] [place] [address] 01/28/2025 3:00 PM EDT Office Visit Family Practice [facility] [address] [place] [address] Hayden Lyman DO [address] [facility] [place] [address] Scheduled Orders Name Type Priority Associated Diagnoses Orde r Schedule CULTURE, URINE, QUANTITATIVE Lab Routine Mixed incontinence Ordered: 08/25/2024 Health Maintenance Due Date Last Done Comments [...] D LEVEL ONCE IN A LIFETIME-USE SMARTSET# [id number] Completed 07/06/2009, 02/01/2006 Pneumococcal Vaccine: 65+ Years [...] this encounter Medical Devices Implanted Type Area Business Continuity Global Director Device Identifier Shelf Expiration Date Model / Serial / Lot Sling Halo Needle [id number] - [id number] Implanted:Qty: 1 on 07/14/2009 at [place] [facility] N/A: Urethra CR BARD : MEDICAL 03/31/2011 [id number] / / [id number] documented as of this encounter Procedures Procedure Name Priority Date/Time Associated Diagnosis Comments URINALYSIS, POINT OF CARE VINCENZO 08/25/2024 1:53 PM EST documented in this encounter Results * (ABNORMAL) URINALYSIS, POINT OF CARE (08/25/2024 1:53 PM EST) Color, Urine Yellow Light Yellow, Yellow 08/25/2024 1:55 PM EST [facility] Clarity, Urine Clear Clear 08/25/2024 1:55 PM EST [facility] Glucose, Urine Negative Negative mg/dL 08/25/2024 1:55 PM EST [facility] Bilirubin, Urine Negative Negative 08/25/2024 1:55 PM EST [facility] Ketone, Urine Trace(A) Negative mg/dL 08/25/2024 1:55 PM EST [facility] Specific Goodman, Urine 1.020 1.003 - 1.030 08/25/2024 1:55 PM EST [facility] Blood, Urine Negative Negative 08/25/2024 1:55 PM EST [facility] pH, Urine 6.0 5.0, 5.5, 6.0, 6.5, 7.0, 7.5 units 08/25/2024 1:55 PM EST [facility] Protein, Urine Negative Negative mg/dL 08/25/2024 1:55 PM EST [facility] Urobilinogen, Urine 1.0 0.2, 1.0 mg/dL 08/25/2024 1:55 PM EST [facility] Nitrite, Urine Positive(A) Negative 08/25/2024 1:55 PM EST [facility] Esterase, Urine Trace(A) Negative 08/25/2024 1:55 PM EST [facility] Urine 08/25/2024 1:53 PM EST 08/25/2024 1:55 PM EST Марина Childress PA-C LAB POINT OF CARE TE ST DOCKED DEVICE UNSOLICITED RESULTS Final Result [facility] [address] [facility] [place] [address] documented in this encounter Visit Diagnoses Diagnosis Mixed incontinence- Primary Mixed incontinence urge and stress (male)(female) Rectocele Urinary frequency documented in this encounter Advance Directives * [...] and were consensually agreed upon. Care Teams Station Cleaning Porter Relationship Specialty Start Date End Date Hayden Lyman DO [address] [facility] [place] [address] PCP - General Family Medicine 04/05/17 documented as of this encounter"
--- OUTSIDE RECORDS SUMMARY | 2025-01-24 02:20 | External Medical Summary | Summary of Care ---
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 100 Tablet 1 08/11/2024 6:09 PM EST 4 Active Lisinopril 20 MG Oral Tablet (Prinivil)Indicat ions:HTN, goal below 140/90 Take 1 Tablet by mouth in the morning. 90 Tablet 2 05/14/2024 6:51 AM EDT 4 08/09/20 24 Discontin ued(Refil l) Warfarin Sodium 5 MG Oral Tablet (Coumadin)Indicat ions:Homozygous MTHFR mutation M0775B,History of pulmonary embolism,Anticoag ulation management encounter,group home current use of anticoagulant therapy TAKE 1 TABLET BY MOUTH DAILY OR DIRECTED BY ANTICOAG CLINIC. 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 10/07/2015 Calculus of gallbladder with out cholecystitis [...] as of this encounter (statuses as of 08/13/2024) Resolved Problems Problem Noted Date Diagnosed Date Resolved Date Cholelithiasis 03/28/2012 04/23/2015 MTHFR mutation 12/27/2011 10/07/2015 Overview (12/27/2011): Homozygous 1298C mutation Pulmonary embolus 11/23/2011 03/27/2013 Overview (02/05/2013): Hospitalized at [facility] 11/2011 Swelling, mass, or lump in chest 11/23/2011 08/01/2017 Routine medical exam 11/20/2011 018 group home current use of ant icoagulant therapy 11/20/2011 [...] as of this encounter (statuses as of 08/13/2024) Immunizations Name Administration Dates Next Due COVID-19 [...] 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 Call Placed by [facility] [employer] automation. Thank you, Karyn Ivey [facility] Water Systems Engineer II [facility] ([facility]) 08/13/2024,3:11 PM * Telephone Encounter - Ryan Camarena [facility] - 08/11/2024 11:19 AM ESTSigned Prescriptions: Disp Refills Lisinopril 20 MG Oral Tablet (Prinivil) 100 Ta*1 Sig: Take 1 Tablet by mouth in the morning.Authorizing Provider: SHAYLA NUÑEZ User: RYAN BROOKSarfarin Sodium 5 MG Oral Tablet (Coumadin)100 Ta*1 Sig: TAKE 1 TABLET BY MOUTH DAILY OR DIRECTED BY [facility].Authorizing Provider: SHAYLA NUÑEZ User: RYAN BROOKS * Telephone Encounter - Ryan Camarena [facility] - 08/11/2024 11:18 AM EST Provided 100 days supply with 1 refill(s) until upcoming appointment. Per refill protocol patient should have CMP on file within past year. Reviewed AMP report, Care Gaps/Health Maintenance, medications list, and for any routine labs typically ordered for this patient. Lab orders placed. Please contact patient to advise of labs ordered for blood draw. Fasting is not required. Advise toobtain labs before her scheduled office visit 01/28/2025. Thank You, Ryan Bernard. Imtiaz [facility] Clinical Pharmacist [facility] ([facility]) 08/11/2024, 11:18 AM * Telephone Encounter - Ryan Camarena [facility] - 08/11/2024 11:16 AM EST Pending Prescriptions: Disp Refills Lisinopril 20 MG Oral Tablet (Prinivil) 90 Tab*2 Sig: Take 1 Tablet by mouth in the morning. Signed Prescriptions: Disp Refills Warfarin Sodium 5 MG Oral Tablet (Coumadin)100 Ta*1 Sig: TAKE 1 TABLET BY MOUTH DAILY OR DIRECTED BY [facility]. Authorizing Provider: SHAYLA NUÑEZ Ordering User: RYAN BROOKS Last Visit: 07/02/2024 (in office), Visit date not found (telemedicine) Next Visit: 01/28/2025 If no future appointments scheduled, and last appointment is greater than a year ago, please schedule patient for a follow-up appointment Last date the medication was ordered: 11/16/23 Pharmacy: [facility] Is this request for a controlled substance? No Urine Drug Screen:No results found for this or any previous visit. Patient Phone Numbers Labs: Lab Results Component Value Date/Time CREAT 0.9 06/25/2023 01:02 PM CREAT 0.9 03/24/2020 10:10 AM POTASSIUM 4.4 06/25/2023 01:02 PM POTASSIUM 4.0 03/24/2020 10:10 AM TSH 1.60 01/16/2013 11:39 AM LDL 90 05/05/2021 09:13 AM LDL 125 03/24/2020 10:10 AM LDL NOT APPLICABLE 03/24/2020 10:10 AM ALT 9 (L) 06/25/2023 01:02 PM ALT 13 03/24/2020 10:10 AM documented in this encounter Plan of Treatment Upcoming Encounters Date Type Department Care Team (Late st Contact Info) Description 08/25/2024 1:15 PM EST Office Visit Urogynecology [facility] [address] [place] [address] Марина Childress PA-C [address] [place] [address] Nurse Faye Montanez [address] [place] [address] 08/27/2024 10:50 AM EST Anticoagulation Pharmacy, [facility] [address] [facility] [place] [address] Pharmacist2, [facility] [address] [facility] [place] [address] 12/11/2024 11:00 AM EDT Office Visit Cardiology, [facility] [address] [place] [address] Yumiko Collazo CRNP [address] [place] [address] 01/28/2025 3:00 PM EDT Office Visit Family Practice [facility] [address] [facility] [place] [address] Shayla Nuñez, DO [address] [place] [address] Health Maintenance Due Date Last Done Comments [...] D LEVEL ONCE IN A LIFETIME-USE SMARTSET# [id number] Completed 07/06/2009, 02/01/2006 Pneumococcal Vaccine: 65+ Years [...] this encounter Medical Devices Implanted Type Area Medical Consultant Device Identifier Shelf Expiration Date Model / Serial / Lot Sling Halo Needle [id number] - [id number] Implanted:Qty: 1 on 07/14/2009 at [place] [facility] N/A: Urethra CR BARD : MEDICAL 03/31/2011 [id number] / / [id number] documented as of this encounter Visit Diagnoses Diagnosis HTN, goal below 140/90 Unspecified essential hypertension Homozygous MTHFR mutation 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 Care Teams Volunteer Specialist Relationship Specialty Start Date End Date Shayla Nuñez DO [address] [place] [address] PCP - General Family Medicine 04/05/17 documented as of this encounter
--- OUTSIDE RECORDS SUMMARY | 2025-01-24 02:20 | External Medical Summary ---
Author Name Unknown Address Unknown Organization K09:[facility] [place] [address] Laboratory Report Ordering Provider Test Date Status JOVANIPEDRO V 09/01/2024 11:58:42 Final Therapeutic ranges for non-o perative patients:
Prophylaxsis/treatment of DVT: (Range:2.0-3.0)
Treatment of pulmonary embolism:(Range:2.0-3.0)
Prevention of systemic embolism from:
-tissue heart valves
-acute myocardial infarction
-valvular heart disease
-atrial fibrillation
(Range: 2.0-3.0)
Mechanical prosthetic valves: (Range: 2.5-3.5) Observation Date Value Abnormality Reference (Units ) Status INR in Capillary blood by Coagulation assay 09/01/2024 11:58:42 2.4 (INR) Final Performing Location [facility] [place] [address]
--- OUTSIDE RECORDS SUMMARY | 2025-01-24 02:20 | External Medical Summary | Summary of Care ---
Author Name Unknown Organization [facility] Address [address] [facility] [place] [address] Phone [phone] Care Team Providers Care Welding Estimator Name Role Phone Shayla Lyman DO Primary Care Provider [phone] Reason for Visit * Reason Comments Medication Refill Encounter Details Date Type Department Care Team (Late st Contact Info) Description 08/09/2024 Refill Family Practice [facility] [address] [place] [address] Shayla Lyman DO [address] [place] [address] HTN, goal below 140/90; Homozygous MTHFR mutation [id number]; History of pulmonary embolism; Anticoagulation management encounter; FPC current use of anticoagulant therapy Allergies No known active allergiesdocumented as of this encounter (statuses as of 08/11/2024) Medications Cyanocobalamin (B-12) 1000 MCG CapsuleIndication s:MTHFR [...] mouth in the morning. 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 100 Tablet 1 4 Active Lisinopril 20 MG Oral Tablet (Prinivil)Indicat ions:HTN, goal below 140/90 Take 1 Tablet by mouth in the morning. 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 90 Tablet 1 04/09/2024 1:42 PM EDT 4 08/09/20 Discontin ued(Refil l) documented as of this encounter (statuses as of 08/11/2024) Active Problems Problem Noted Date Diagnosed Date Body mass index (BMI) of 45.0 to 49.9 in adult 1 Overview: Per Obesity protocol Age-related osteoporosis wit hout current pathological fracture 12/14/2023 Mild episode of recurrent major depressive disor rajesh 12/14/2023 Grief reaction 12/14/2023 ANDRES on CPAP 03/12/2019 Obesity hypoventilation syndrome 03/12/2019 Homozygous MTHFR mutation [id number] 10/07/2015 Calculus of gallbladder with out cholecystitis [...] as of this encounter (statuses as of 08/11/2024) Resolved Problems Problem Noted Date Diagnosed Date Resolved Date Cholelithiasis 03/28/2012 04/23/2015 MTHFR mutation 12/27/2011 10/07/2015 Overview (12/27/2011): Homozygous 1298C mutation Pulmonary embolus 11/23/2011 03/27/2013 Overview (02/05/2013): Hospitalized at [facility] 11/2011 Swelling, mass, or lump in chest 11/23/2011 08/01/2017 Routine medical exam 11/20/2011 018 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 therapy 11/20/2011 [...] as of this encounter (statuses as of 08/11/2024) Immunizations Name Administration Dates Next Due COVID-19 [...] 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 Not on file 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 Not on file Not on 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 Not on file Not on file documented as of this encounter Miscellaneous Notes * Telephone Encounter - Ryan Camarena [facility] - 08/11/2024 11:19 AM ESTSigned Prescriptions: Disp Refills Lisinopril 20 MG Oral Tablet (Prinivil) 100 Ta*1 Sig: Take 1 Tablet by mouth in the morning.Authorizing Provider: SHAYLA LYMAN User: RYAN BROOKSarfarin Sodium 5 MG Oral Tablet (Coumadin)100 Ta*1 Sig: TAKE 1 TABLET BY MOUTH DAILY OR DIRECTED BY [facility].Authorizing Provider: SHAYLA LYMAN User: RYAN BROOKS * Telephone Encounter - Ryan Camarena [facility] - 08/11/2024 11:18 AM EST [...] scheduled office visit 01/28/2025. Thank You, Ryan Brooks [facility] Clinical Pharmacist [facility] ([facility]) 08/11/2024, 11:18 AM * Telephone Encounter - Ryan Camarena [facility] - 08/11/2024 11:16 AM EST Pending Prescriptions: Disp Refills Lisinopril 20 MG Oral Tablet (Prinivil) 90 Tab*2 Sig: Take 1 Tablet by mouth in the morning. Signed Prescriptions: Disp Refills Warfarin Sodium 5 MG Oral Tablet (Coumadin)100 Ta*1 Sig: TAKE 1 TABLET BY MOUTH DAILY OR DIRECTED BY [facility]. Authorizing Provider: SHAYLA LYMAN Ordering User: RYAN BROOKS Last Visit: 07/02/2024 (in office), Visit date not found (telemedicine) Next Visit: 01/28/2025 If no future appointments scheduled, and last appointment is greater than a year ago, please schedule patient for a follow-up appointment Last date the medication was ordered: 11/16/23 Pharmacy: [facility] Is this request for a [...] 08/25/2024 1:15 PM EST Office Visit Urogynecology [facility] [address] [place] [address] Марина Childress PA-C [address] [place] [address] Nurse Tarik Urogycori Boateng [address] [place] [address] 08/27/2024 10:50 AM EST [facility] [place] [address] [facility] [place] [address] Pharmacist2, [facility] [address] [facility] [place] [address] 12/11/2024 11:00 AM EDT [facility] [address] [place] [address] Yumiko Collazo CRNP [address] [place] [address] 01/28/2025 3:00 PM EDT Office Visit Family Practice [facility] [address] [facility] [place] [address] Shayla Lyman, DO [address] [facility] [place] [address] Health Maintenance Due Date Last Done Comments [...] D LEVEL ONCE IN A LIFETIME-USE SMARTSET# [id number] Completed 07/06/2009, 02/01/2006 Pneumococcal Vaccine: 65+ Years [...] this encounter Medical Devices Implanted Type Area Enterprise Software Developer Device Identifier Shelf Expiration Date Model / Serial / Lot Sling Halo Needle [id number] - [id number] Implanted:Qty: 1 on 07/14/2009 at OR [facility] [place] N/A: Urethra CR BARD : MEDICAL 03/31/2011 [id number] / / [id number] documented as of this encounter Visit Diagnoses Diagnosis HTN, goal below 140/90 Unspecified essential hypertension Homozygous MTHFR mutation [id number] Disturbances of sulphur-bearing amino-acid metabolism History of pulmonary embolism Personal history of pulmonary embolism Anticoagulation management encounter Encounter for therapeutic drug monitoring FPC current use of anticoagulant therapy documented in [...] and were consensually agreed upon. Care Teams Welding Estimator Relationship Specialty Start Date End Date Shayla Lyman DO [address] [place] [address] PCP - General Family Medicine 04/05/17 documented as of this encounter
--- OUTSIDE RECORDS SUMMARY | 2025-01-24 02:20 | External Medical Summary | Summary of Care ---
Author Name Unknown Organization [facility] Address [address] [facility] [place] [address] Phone [phone] Care Team Providers Care Stucco Worker Name Role Phone Hayden Lyman DO Primary Care Provider [phone] Reason for Visit * Reason Comments Dosage Adjustment In Person (Anticoag Cl inic) Encounter Details Date Type Department Care Team (Latest Contact Info) Description 09/01/2024 11:40 AM [facility] Anticoagulation Pharmacy, [facility] [address] [facility] [place] [address] Pharmacist1, [facility] [address] [facility] [place] [address] History of pulmonary embolism*; Anticoagulation management encounter Allergies No known active allergiesdocumented as of this encounter (statuses as of 09/01/2024) Medications Cyanocobalamin (B-12) 1000 MCG CapsuleIndications :MTHFR [...] MG Oral Tablet (Coumadin)Indicati ons:Homozygous MTHFR mutation U0172L,History of pulmonary embolism,Anticoagu lation management encounter,intermission coordinator current use of anticoagulant therapy TAKE 1 TABLET BY MOUTH DAILY OR DIRECTED BY ANTICOAG CLINIC. 100 Tablet 1 08/11/2024 6:09 PM EST 4 Active Gemtesa 75 MG Oral Tablet (Vibegron)Indicati ons:Mixed incontinence,Urina ry frequency Take 1 Tablet by mouth in the morning. 30 Tablet 11 4 Active documented as of this encounter (statuses as of 09/01/2024) Active Problems Problem Noted Date Diagnosed Date Body mass index (BMI) of 45.0 to 49.9 in adult 1 Overview: Per Obesity protocol Age-related osteoporosis wit hout current pathological fracture 12/14/2023 Mild episode of recurrent major depressive disor rajesh 12/14/2023 Grief reaction 12/14/2023 ANDRES on CPAP 03/12/2019 Obesity hypoventilation syndrome 03/12/2019 Homozygous MTHFR mutation D2010I 10/07/2015 Calculus of gallbladder with out cholecystitis [...] as of this encounter (statuses as of 09/01/2024) Resolved Problems Problem Noted Date Diagnosed Date Resolved Date Cholelithiasis 03/28/2012 04/23/2015 MTHFR mutation 12/27/2011 10/07/2015 Overview (12/27/2011): Homozygous 1298C mutation Pulmonary embolus 11/23/2011 03/27/2013 Overview (02/05/2013): Hospitalized at 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 Description (Takes 9:30 AM) Patient Findings Negatives: Signs/symptoms of thrombosis, Signs/symptoms of bleeding, Change in health, Change in alcohol use, Change in activity, Upcoming invasive procedure, Missed doses, Extra doses, Change in medications, Change in diet/appetite, Bruising INR Result As of 09/01/2024 INR goal: 2.0-3.0 INR used for dosin.4 (09/01/2024) Warfarin Plan As of 09/01/2024 Full warfarin instructions: 2.5 mg every Mon, Fri; 5 mg all other days No change documented: Иван Little RPh Next INR check: 10/13/2024 Repeat PT/INR in 6 week(s) Weekly dose: not changed I spent a total of 10-19 minutes (exact time 13 mins) on the date of service in preparation, delivery, and documentation of the care provided to Jenniffer Dumont excluding any time spent in the performance of separately billed services or time spent by another provider/QHP. Иван Chin RPh, [facility] [place][NOTE 2] Clinical Pharmacist Medication Therapy Disease Management 09/01/2024, 12:00 PM documented in this encounter Plan of Treatment Upcoming Encounters Date Type Department Care Team (Late st Contact Info) Description 10/10/2024 2:50 PM EST [facility] [address] [place] [address] Марина Childress PA-C [address] [place] [address] 10/13/2024 11:10 AM EST Anticoagulation Pharmacy, [facility] [address] [place] [address] Pharmacist1, [facility] [address] [facility] [place] [address] 12/11/2024 11:00 AM EDT Office Visit Cardiology, [facility] [address] [place] [address] Yumiko Collazo CRNP [address] [place] [address] 01/28/2025 3:00 PM EDT Office Visit Family Practice [facility] [address] [facility] [place] [address] Hayden Lyman, DO [address] [facility] [place] [address] Scheduled Orders Name Type Priority Associated Diagnoses Orde r Schedule INR FINGERSTICK, POINT OF CARE Point of Care Testing - Unsolicited Results STAT History of pulmonary embolism Anticoagulation management encounter Every 2 Weeks for 26 Occurrences starting 09/01/2024 until 09/01/2025, 1 completed PT INR Lab Routine History of pulmonary embolism Anticoagulation management encounter Every 6 Weeks for 26 Occurrences starting 09/01/2024 until 09/01/2025 Health Maintenance Due Date Last Done Comments [...] D LEVEL ONCE IN A LIFETIME-USE SMARTSET# [id number] Completed 07/06/2009, 02/01/2006 Pneumococcal Vaccine: 65+ Years [...] this encounter Medical Devices Implanted Type Area Fish Straightener Device Identifier Shelf Expiration Date Model / Serial / Lot Sling Halo Needle [id number] - [id number] Implanted:Qty: 1 on 07/14/2009 at OR [facility] N/A: Urethra CR BARD : MEDICAL 03/31/2011 [id number] / / [id number] documented as of this encounter Procedures Procedure Name Priority Date/Time Associated Diagnosis Comments INR FINGERSTICK, POINT OF CARE STAT 09/01/2024 11:58 AM EST History of pulmonary embolism Anticoagulation management encounter documented in this encounter Results * INR FINGERSTICK, POINT OF CARE (09/01/2024 11:58 AM EST) Fingerstick INR 2.4 INR 12:04 PM EST [facility] 56-02 Blood 09/01/2024 11:5 8 AM EST 09/01/2024 12:04 PM EST Narrative [facility] 56-02 - 09/01/2024 12:04 PM EST Therapeutic ranges for non-operative patients: Prophylaxsis/treatment of DVT: (Range:2.0-3.0) Treatment of pulmonary embolism:(Range:2.0-3.0) Prevention of systemic embolism from: -tissue heart valves -acute myocardial infarction -valvular heart disease -atrial fibrillation (Range: 2.0-3.0) Mechanical prosthetic valves: (Range: 2.5-3.5) Иван Giuseppe V, [facility] LAB POINT OF CARE TE ST DOCKED DEVICE UNSOLICITED RESULTS Final Result [facility] [place] [facility] [address] [facility] [address] documented in this encounter Visit Diagnoses Diagnosis [...] and were consensually agreed upon. Care Teams Stucco Worker Relationship Specialty Start Date End Date Hayden Lyman DO [address] [facility] [address] PCP - General Family Medicine 04/05/17 documented as of this encounter
[2025-01-24 06:55] LABS: Basophils # (auto) 0.03 K/uL (0.00-0.20); Basophils % (auto) 0.7 %; Eosinophils # (auto) 0.06 K/uL (0.00-0.50); Eosinophils % (auto) 1.4 %; Hemoglobin 10.3 g/dl (12.0-16.0); Immature Granulocytes # (auto) 0.01 K/uL (0.01-0.20); Immature Granulocytes % (auto) 0.2 %; Lymphocytes % (auto) 18.5 %; Mean Corpuscular Hemoglobin 31.3 pg (25.0-34.0); Mean Corpuscular Hgb Conc 32.2 g/dL (32.0-36.0); Mean Corpuscular Volume 97.3 fL (80.0-100.0); Mean Platelet Volume 10.5 fL (9.4-12.4); Monocytes # (auto) 0.33 K/uL (0.11-0.59); Monocytes % (auto) 7.6 %; Neutrophils % (auto) 71.6 %; Platelet Count 149 K/uL (130-400); RDW Coefficient of Variation 13.3 % (11.5-14.5); RDW Standard Deviation 47.5 fL (36.4-46.3); Red Blood Count 3.29 M/uL (4.20-5.40); White Blood Count 4.33 K/ul (4.8-10.8)
[2025-01-24] MEDS ORDERED: LIDOCAINE 2% 2 ML VIAL/AMP(20MG/ML) INFIL ONE (06:57)
[2025-01-24] MEDS ORDERED: ROCURONIUM BROMIDE 10 MG/ML 5 ML VIAL IV ONE (06:57)
[2025-01-24] MEDS ORDERED: ONDANSETRON INJ 2 MG/ML 2 ML VIAL ONE (06:57)
[2025-01-24] MEDS ORDERED: fentaNYL citrate PF 100 MCG/2 ML VIAL ONE (06:57)
[2025-01-24] MEDS ORDERED: DEXAMETHASONE SOD INJ 4 MG/ML VIAL ONE ×2 (06:57→09:30)
[2025-01-24] MEDS ORDERED: PROPOFOL IV EMULSION 10 MG/ML 20 ML VIAL IV ONE (06:57)
--- NOTE | 2025-01-24 07:10 | Anesthesiology Consultation ---
Date of Service January 24, 2025 Assessment & Plan Chart Review Chart Review: Acceptable Risk for Surgery Consults Requested none ASA ASA3 Proposed Anesthesia Anesthesia Type: MAC Regional Regional Laterality: Right Site: Interscalene Risk / Benefits Reviewed With: PT / POA / Parent / Guardian, Accepts Plan and Informed Consent Obtained History Surgery Operation Date: 01/24/25 09:00 Proposed Procedures p Open Reduction Internal Fixation Arm(Left) - Montrell Bonner, Height/Weight Height: 5 ft 7 in Weight: 133 kg Allergies Allergy/AdvReac Type Severity Reaction Status Date / Time Fish Containing Products AdvReac Intermediate HEADACHE Verified 01/23/25 19:16 FROM SEAFOOD Medications Home Medications Medication Instructions Recorded Confirmed Last Taken amlodipine 2.5 mg tablet 2.5 mg PO QAM 01/23/25 01/23/25 01/23/25 atorvastatin 40 mg tablet 40 mg PO QAM 01/23/25 01/23/25 01/23/25 cyanocobalamin (vitamin B-12) 1,000 mcg PO QAM 01/23/25 01/23/25 01/23/25 1,000 mcg tablet (Vitamin B-12) escitalopram oxalate 10 mg tablet 10 mg PO QAM 01/23/25 01/23/25 01/23/25 folic acid 1 mg tablet 1 mg PO QAM 01/23/25 01/23/25 01/23/25 furosemide 20 mg tablet 20 mg PO QAM 01/23/25 01/23/25 01/23/25 lisinopril 20 mg tablet 20 mg PO QAM 01/23/25 01/23/25 01/23/25 mirabegron 50 mg tablet,extended 50 mg PO QAM 01/23/25 01/23/25 01/23/25 release 24 hr (Myrbetriq) warfarin 5 mg tablet 2.5 mg PO 2XWK 01/23/25 01/23/25 01/23/25 warfarin 5 mg tablet 5 mg PO 5XWK 01/23/25 01/23/25 01/22/25 Active Medications Generic Name Dose Route Start Last Admin Trade Name Freq PRN Reason Stop Dose Admin Lactated Ringer's 1,000 mls @ 80 mls/hr 01/23/25 22:23 01/23/25 23:47 Lr IV 01/24/25 22:22 80 mls/hr .[id number] JAGDISH Administration NPO Date Last Intake of Fluids: 01/23/25 Time Last Intake of Fluids: 23:59 Date Last Intake of Solids: 01/23/25 Time Last Intake of Solids: 15:00 Past Medical History Medical History (Updated 01/24/25 @ 08:11 by Adriel Carson PABenC) Chronic anticoagulation History of pulmonary embolism Homozygous for MTHFR gene mutation Calculus of gallbladder GERD (gastroesophageal reflux disease) Osteoporosis Hyperlipidemia (11/11/11) Benign hypertension (11/11/11) Stress incontinence Depression Urge incontinence Morbid obesity Obstructive sleep apnea Obesity hypoventilation syndrome Thyroid nodule Exercise / Class Metabolic Activity II 4-5 Yardwork/Stairs/Walk up hill Past Surgical History Surgical History (Updated 01/24/25 @ 08:47 by Celeste Eastman DO) History of midurethral sling procedure Hx of hysterectomy Past Anesthesia History No Hx of Anesthesia Complications and No Family Hx of Anesthesia Complications History of PONV No Hx of PONV and No Hx of Motion Sickness Social History Smoking Status: Never smoker Do You Dip or Chew Tobacco: No Hx Alcohol Use: No Hx Substance Use: No Physical Exam Vital Signs Last Vital Signs Temp 36.5 C 01/24/25 07:33 Pulse 54 L 01/24/25 07:33 Resp 16 01/24/25 07:33 BP 127/80 01/24/25 07:33 Pulse Ox 98 01/24/25 07:33 O2 Del Method Room Air 01/24/25 07:33 O2 Flow Rate 2 01/23/25 22:23 Constitutional + morbidly obese ENMT Mouth: + poor dentition (6 teeth remain top few missing lower); no TMJ abnormality Thyromental Distance: > or= 3.5 Finger Breadths Mallampati Class: III Neck normal visual inspection, trachea midline and + thick neck; neck extension not limited Respiratory normal respiratory effort Auscultation: lungs clear to auscultation bilaterally Cardiovascular Rate/Rhythm: regular rate and regular rhythm Heart Sounds: no murmur Musculoskeletal Spine: normal cervical ROM Extremities: full ROM of extremities Neurologic moves all extremities in rue sling Psychiatric Orientation: alert and oriented x 3 Testing Laboratory Results 01/24/25 05:29 01/24/25 05:29 PT 16.2 Seconds (9.0-12.0) H 01/24/25 05:29 INR 1.6 (0.9-1.1) H 01/24/25 05:29 Electrocardiogram Date: 01/23/25 junctional @55bpm inf infarct age indetermined Chest X-Ray Date: 01/23/25 Findings: + cardiomegaly Interstitial prominence could represent atelectasis, pulmonary edema or atypical infection. Other Testing 01/23/25 XR shoulder RT min 2V routine CLINICAL HISTORY: Shoulder trauma, no prior imaging TECHNIQUE: X-ray images of the right shoulder were obtained in anteroposterior (AP) and Y-view projections. COMPARISON: No prior studies available for comparison. FINDINGS: Osteopenia. Comminuted displaced fracture of the proximal humeral shaft. There is a cortical stepping/radiolucent line seen at the surgical neck of the humerus. A radiolucent line is seen through the scapular blade may suggests a skin fold. CT study is suggested if warranted clinically. No evidence of shoulder dislocation Soft Tissues: Moderate soft tissue edema around fracture site. Additional Findings: Osteoarthritic changes of the shoulder joint. IMPRESSION: 1. Comminuted displaced fracture of the proximal humeral shaft. 2. Fracture of the surgical neck of the humerus. 3. Moderate soft tissue swelling around the fracture site. 4. No shoulder dislocation. Disclaimer: A subtle bone abnormality or fracture may not be readily apparent on X-rays, thus clinical correlation and further imaging including follow-up CT, MRI, or follow-up X-rays are advised as needed.
[2025-01-24 07:19] LABS: BUN Creatinine Ratio 18.8 (10-20); Creatinine Clr Calc Pharmacy 100.3 ml/min; Potassium 3.9 mmol/L (3.5-5.1)
[2025-01-24 07:29] LABS: INR 1.6 (0.9-1.1); Prothrombin Time 16.2 Seconds (9.0-12.0)
--- NOTE | 2025-01-24 07:38 | Hospitalist Progress Note ---
Date of Service January 24, 2025 Assessment & Plan (1) Fracture, humerus, proximal: Plan: 74-year-old female with past medical history significant for multiple thyroid nodules, dyslipidemia, homozygous MTHFR mutation, obesity hypoventilation syndrome, obstructive sleep apnea noncompliant with CPAP, hypertension, morbid obesity, GERD, calculus of gallbladder without cholecystitis, urge incontinence, female stress incontinence, osteoporosis, history of pulmonary embolism, depression is status post fall and right humerus fracture. Patient was coming out of the [facility] after shopping and she was carrying a light bag and she thinks she tripped over the curb and she fell on the right shoulder. Did not hit her head. No loss of consciousness. Was not able to get up. Ambulance was called and patient was brought to the hospital. Denies any chest pain prior to fall. Denies any dizziness or blurred vision or nausea or palpitations prior to fall. Currently hemodynamics are okay. Denies any headache. No runny nose or sore throat. Has some cough. No fevers. Denies chest pain or shortness of breath currently. No nausea. No abdominal pain. Normal bowel and bladder movements. Eating and drinking okay. No rash. Prior to fall patient says she could ambulate 1-2 blocks without stopping. Fracture humerus proximal Status post mechanical fall Commuted displaced fracture of proximal humeral shaft with associated soft ti ssue swelling. Fracture of the surgical neck of the humerus. s/p ORIF humerus; POD #0 under the care of Dr. Bonner. EBL 300mL Pain control with Oxy and Ketoralac PRN Resume diet and advance as tolerated ECG junctional rhythm,however, p waves noted on ECG; no history of AMI/CVA RCRI ZERO; 3.9% risk of major cardiac event intraoperatively. 2LNC post op Obtain labs for AM to monitor CBC History of pulmonary embolism History of homozygous MTHFR mutation Patient says last time she had PE wasabout 7 years ago INR is 2.4 on admission; Received Vitamin K in ED Coumadin on hold; this AM INR 1.6; deemed acceptable range to proceed to OR. Check PT/INR in AM Plan to restart Coumadin as soon as possible. Hypocalcemia serum calcium 8.3 in ED; received 1 g IV and calcium gluconate in the ED; this a.m. calcium 8.0 likely secondary to low Vit D level; 17.4 Was ordered Ca 600+ vitamin D plus cholecalciferol in ED; discontinue and order Ergocalciferol weekly Will require outpatient vitamin D levels to be obtained in 6 weeks; ensure placed on discharge instructions. Morbid obesity Obstructive sleep apnea Patient states not using his CPAP Patient does not use CPAP in the hospital would be okay with using oxygen Hypertension Lower extremity edema On amlodipine Lisinopril and Lasix on hold for OR; will reassess post op IV hydralazine as needed Lower extremity Doppler US; negative for DVT Hyperlipidemia takes atorvastatin; continue Urgent continence Myrbetriq; continue Depression takes Lexapro; continue Disposition: PCP: Dr. Lyman Code Status: Ful Code VTE Prophylaxis: teds and SCDs for now; resume Coumadin as able I spent a total of 62 minutes coordinating, documenting, and providing care for this patient excluding time spent inthe performance of separately billed services or time spent by another provider/QHP. . Admission and Anticipated Discharge Date Admission Date: January 23, 2025 Supervising Physician Co-Signing Physician Notes I have reviewed the advanced practitioner's documentation, and I agree with, and take responsibility for the plan of care Subjective Patient lying in her hospital bed in no apparent distress. Evaluated pre op and post op. See below for details Commuted displaced fracture of proximal humeral shaft with associated soft tissue swelling. Fracture of the surgical neck of the humerus; now s/p ORIF Patient denies headache, dizziness, fatigue, palpitations, chest pain, Shortness of breath. Review of Systems Review of Systems: Neuro: (+) mechanical Falls, trauma, (-) slurred speech HEENT: (-) JETER, dizziness, dysphagia, visual or auditory changes CV: (-) CP, palpitations, swelling Resp: (-) SOB GI: (-) appetite changes, N/V/D, bowel changes : (-) urinary changes Skin: (-) rashes Psych: (-) anxiety, depression Physical Exam Physical Exam: Neuro: AAOx4, PERRLA, no aphagia, memory changes, CNII-XII grossly intact HEENT: head normocephalic, moist mucus membranes CV: S1/S2, (-) M/G/R, (-) edema, cap refill < 3 seconds Resp: Lungs CTA in all meehan. On RA GI: Abdomen S/NT/ND, Ax4 bowel sounds, (-) CVA tenderness Musculoskeletal: 3/5 RUE strength. 5/5 LUE strength, 5/5 B/L LE strength. No gait disturbance. R shoulder in sling with ice Skin: (-) rashes , (-) erythema. Psych: euthymic mood Results & Data Results & Data Vital Signs (Past 12 Hours) Vital Signs Temp Pulse Pulse Pulse Resp BP BP 01/24/25 07:33 36.5 C 54 L 16 127/80 01/23/25 23:14 36.4 C L 58 L 18 128/68 01/23/25 22:59 01/23/25 22:23 36.4 C L 18 128/68 01/23/25 21:20 36.7 C 54 L 20 129/81 01/23/25 21:00 56 L 20 129/81 01/23/25 20:46 58 L 01/23/25 20:00 76 20 137/95 01/23/25 20:00 78 19 137/95 Pulse Ox O2 Del Method O2 Flow Rate 01/24/25 07:33 98 Room Air 01/23/25 23:14 98 Nasal Cannula 01/23/25 22:59 Nasal Cannula 01/23/25 22:23 98 Nasal Cannula 2 01/23/25 21:20 100 Room Air 01/23/25 21:00 100 Nasal Cannula 2 01/23/25 20:46 01/23/25 20:00 99 Nasal Cannula 2 01/23/25 20:00 99 Nasal Cannula 2 Laboratory Results Short CBC 01/23/25 01/24/25 Range/Units 17:01 05:29 WBC 4.41 L 4.33 L (4.8-10.8) K/ul Hgb 11.2 L 10.3 L (12.0-16.0) g/dl Hct 33.9 L 32.0 L (37.0-47.0) % Plt Count 166 149 (130-400) K/uL BMP 01/23/25 01/24/25 17:01 05:29 Sodium 143 139 Potassium 3.7 3.9 Chloride 108 H 105 Carbon Dioxide 32 32 BUN 16 13 Creatinine 0.88 0.69 Glucose 120 H 106 H Calcium 8.3 L 8.0 L Diagnostic Findings Chest X-Ray 01/23/25 21:14 Exam(s): XR CXR 1 VIEW EXAM: XR Chest, 1 View CLINICAL HISTORY: Preop TECHNIQUE: Frontal view of the chest. COMPARISON: Chest radiograph 10/06/2022 FINDINGS: Lungs: Interstitial prominence could represent atelectasis, pulmonary edema or atypical infection. Pleural space: Unremarkable. No pneumothorax. Heart: Cardiomegaly. Mediastinum: Unremarkable. Normal mediastinal contour. Bones/joints: There are degenerative changes of the spine. No acute fracture. IMPRESSION: 1. Interstitial prominence could represent atelectasis, pulmonary edema or atypical infection. 2. Cardiomegaly. Electronically signed by: Veronica Leon MD 01/23/25 23:42 PM Venous Doppler Study 01/23/25 22:23 Exam(s): US VENOUS BILATERAL LOWER EXTREMITIES EXAM: US Duplex Bilateral Lower Extremities Veins CLINICAL HISTORY: Edema TECHNIQUE: Real-time duplex ultrasound scan of the bilateral lower extremity veins integrating B-mode two-dimensional vascular structure, Doppler spectral analysis, color flow Doppler imaging and compression. COMPARISON: No relevant prior studies available. FINDINGS: Right deep veins: Unremarkable. No Deep vein thrombosis in the right common femoral, femoral, proximal deep femoral or popliteal veins. The veins demonstrate normal color flow, are normally compressible, with normal phasic flow and/or augmentation response. Right superficial veins: Unremarkable. No thrombus in the visualized right great saphenous vein. Left deep veins: Unremarkable. No Deep vein thrombosis in the left common femoral, femoral, proximal deep femoral or popliteal veins. The veins demonstrate normal color flow, are normally compressible, with normal phasic flow and/or augmentation response. Left superficial veins: Unremarkable. No thrombus in the visualized left great saphenous vein. Soft tissues: Nonspecific subcutaneous edema bilaterally. No popliteal cyst. IMPRESSION: 1. Nonspecific subcutaneous edema bilaterally. 2. No deep vein thrombosis of either lower extremity. Electronically signed by: Veronica Leon MD 01/24/25 01:15 AM (1) Fracture, humerus, proximal Encounter type: initial encounter Fracture alignment: displaced Fracture morphology: other fracture Fracture type: closed Laterality: right Qualified Code(s): S42.291A - Other displaced fracture of upper end of right humerus, initial encounter for closed fracture
[2025-01-24] MEDS ORDERED: MEPERIDINE HCL 25 MG/ML CARP/VIAL IV PRN (07:54)
[2025-01-24] MEDS ORDERED: ePHEDrine sulfate 50 MG/ML AMP IV PRN (07:54)
[2025-01-24] MEDS ORDERED: fentaNYL citrate PF 100 MCG/2 ML VIAL IV PRN (07:54)
[2025-01-24] MEDS ORDERED: ONDANSETRON INJ 2 MG/ML 2 ML VIAL IV PRN (07:54)
[2025-01-24] MEDS ORDERED: MoRPHine SULFATE 10 MG/ML CARP/VIAL IV PRN (07:54)
[2025-01-24] MEDS ORDERED: ATROPINE SULFATE 0.1 MG/ML 10ML SYR IV PRN (07:54)
--- NOTE | 2025-01-24 07:55 | Orthopedic Consultation ---
Date of Service January 24, 2025 Assessment & Plan (1) Fracture, humerus, proximal: (2) Morbid obesity: (3) Fall with significant injury: Plan Explained the patient's options in detail, to include conservative and surgical. She does understand that immobilization of the fracture site in a sling is not our recommendation, as due to the nature of the fracture, it would be unlikely to heal very well, with possibly a nonunion or malunion. Overall, the patient is recommended for ORIF of the right proximal humerus, which was explained to her. Patient is in agreement with this plan and elects to proceed with surgery in full understanding of the risks, benefits, and alternatives. She has been NPO since last night. INR was 2.4 last night, but as of this morning it is now 1.6, and so it is within an acceptable range to proceed with surgery. Patient has been seen by anesthesia, and has been cleared for surgery from their standpoint. We will have to wait and see how her PT/OT evals go postoperatively to see if she would be able to return home, or have a need for a rehab stay. . History of Present Illness Reason for Consultation: . Right proximal humerus fracture Requesting Physician: . Attending Physician: Gutierrez Bernard MD Patient is a pleasant 74-year-old female who states she was in the [employer] parking lot yesterday around 4:00 PM and she must of tripped or stepped off of a curb wrong next to her vehicle, and she thinks she tried to catch herself when falling. This resulted in some pretty immediate pain to the right upper arm. EMS was contacted and she was transported to the [facility] ED by ambulance. X-rays taken there demonstrated a comminuted, displaced fracture of the right proximal humeral shaft, with a cortical step-off into the region of the surgical neck. [facility] [place]oped[place] was consulted for further management of the fracture. Due to the displaced nature of the fracture, it was felt that it would not heal well with conservative treatment alone. She was recommended to have this fixed with plate/screw hardware. Yesterday, ED physician explained the patient's options to her, and the patient is right-hand dominant, so she did not feel comfortable returning home last night since she lives alone. She was admitted under the hospitalist service. Of note, the patient takes Coumadin for the past 10+ years for history of pulmonary embolism. She says that she experienced a PE shortly after her 13 years or so ago, stating that "my heart stopped". She has been on Coumadin ever since that time, with plan to continue the anticoagulation indefinitely. Patient's INR was 2.4 yesterday. She has been NPO since midnight. Allergies Allergy/AdvReac Type Severity Reaction Status Date / Time Fish Containing Products AdvReac Intermediate HEADACHE Verified 01/23/25 19:16 FROM SEAFOOD Home Medications Medication Instructions Recorded Confirmed Type amlodipine 2.5 mg tablet 2.5 mg PO QAM 01/23/25 01/23/25 History atorvastatin 40 mg tablet 40 mg PO QAM 01/23/25 01/23/25 History cyanocobalamin (vitamin B-12) 1,000 mcg PO QAM 01/23/25 01/23/25 History 1,000 mcg tablet (Vitamin B-12) escitalopram oxalate 10 mg tablet 10 mg PO QAM 01/23/25 01/23/25 History folic acid 1 mg tablet 1 mg PO QAM 01/23/25 01/23/25 History furosemide 20 mg tablet 20 mg PO QAM 01/23/25 01/23/25 History lisinopril 20 mg tablet 20 mg PO QAM 01/23/25 01/23/25 History mirabegron 50 mg tablet,extended 50 mg PO QAM 01/23/25 01/23/25 History release 24 hr (Myrbetriq) warfarin 5 mg tablet 2.5 mg PO 2XWK 01/23/25 01/23/25 History warfarin 5 mg tablet 5 mg PO 5XWK 01/23/25 01/23/25 History Past Med/Surg History Problem List (Updated 01/24/25 @ 08:11 by Adriel Carson PA-C) Fall with significant injury Hypocalcemia (Acute) Fall (Acute) Fracture, humerus, proximal (Acute) Medical History (Updated 01/24/25 @ 08:11 by Adriel Carson PA-C) Chronic anticoagulation History of pulmonary embolism Homozygous for MTHFR gene mutation Calculus of gallbladder GERD (gastroesophageal reflux disease) Osteoporosis Hyperlipidemia (11/11/11) Benign hypertension (11/11/11) Stress incontinence Depression Urge incontinence Morbid obesity Obstructive sleep apnea Obesity hypoventilation syndrome Thyroid nodule Surgical History (Updated 01/24/25 @ 08:47 by Celeste Eastman, DO) History of midurethral sling procedure Hx of hysterectomy Social History Smoking Status: Never smoker Second Hand Exposure: No; Do You Dip or Chew Tobacco: No; Tobacco Cessation Education Requested by Patient: No Hx Alcohol Use: No Hx Substance Use: No Preferred Language: Welsh Communication Ability: Effective Filing Writer Required: No Beliefs That Will Affect Care: None marital status: / Current Living Situation: Alone current occupational status: retired Other Information That Helps Us Care for You: No Feels Safe at Home: Yes Assistive Devices: None Review of Systems All systems reviewed & are unremarkable except as noted in HPI & below. Physical Exam GENERAL: Speech and cognition is intact. Mood and affect is appropriate. In no acute distress. HEAD: Normocephalic; atraumatic. CHEST: Regular chest respiration and excursion. EXTREMITIES: Distal sensation and pulses intact bilaterally.Median, radial, and ulnar nerve motor function intact to right upper extremity NEURO: CN II-XII grossly intact with no focal deficits noted. C5 - C8 w/ intact sensation bilaterally. SKIN: No lesions, erythema, or rashes noted. Musculoskeletal Extremities: + upper extremity abnormal to inspection (humerus; elbow, wrist, digit ROM intact) Right Results & Data Results & Data Laboratory Results . Laboratory Results - last 48 hr 01/23/25 01/24/25 17:01 05:29 WBC 4.41 L 4.33 L RBC 3.56 L 3.29 L Hgb 11.2 L 10.3 L Hct 33.9 L 32.0 L MCV 95.2 97.3 MCH 31.5 31.3 MCHC 33.0 32.2 RDW Std Deviation 46.5 H 47.5 H RDW Coeff of Guido 13.2 13.3 Plt Count 166 149 MPV 10.2 10.5 Immature Gran % (Auto) 0.9 0.2 Neut % (Auto) 55.8 71.6 Lymph % (Auto) 33.3 18.5 Roberts % (Auto) 7.5 7.6 Eos % (Auto) 1.8 1.4 Baso % (Auto) 0.7 0.7 Neut # (Auto) 2.46 3.10 Lymph # (Auto) 1.47 0.80 L Roberts # (Auto) 0.33 0.33 Eos # (Auto) 0.08 0.06 Baso # (Auto) 0.03 0.03 Immature Gran # (Auto) 0.04 0.01 PT 24.0 H 16.2 H INR 2.4 H 1.6 H Sodium 143 139 Potassium 3.7 3.9 Chloride 108 H 105 Carbon Dioxide 32 32 Anion Gap 3 2 L BUN 16 13 Creatinine 0.88 0.69 Est Cr Clr Drug Dosing 78.6 100.3 eGFR 68.49 90.45 BUN/Creatinine Ratio 18.2 18.8 Glucose 120 H 106 H Calcium 8.3 L 8.0 L Magnesium 2.0 25-OH Vitamin D Total 17.4 L Diagnostic Findings . Humerus X-Ray 01/23/25 16:53 EXAM: XR humerus RT 2V CLINICAL HISTORY: Upper arm trauma TECHNIQUE: X-ray images of the right humerus were obtained in anteroposterior (AP) and lateral projections. COMPARISON: No prior studies available for comparison. FINDINGS: Osteopenia Communuted displaced fracture of the proximal humeral shaft There is cortical stepping seen at the surgical neck of the humerus A radiolucent line is seen through the scapular blade may suggests a skin fold. CT study is suggested if wrranted clinically Soft Tissues: Moderate soft tissue edema around the fracture site. Additional Findings: Osteoarthritic changes of the glenohumeral joint. IMPRESSION: Comminuted displaced fracture of the proximal humeral shaft with asscoiated soft tissue swelling Fracture of the surgical neck of the humerus Disclaimer: A subtle bone abnormality or fracture may not be readily apparent on X-rays, thus clinical correlation and further imaging, including follow-up CT, MRI, or follow-up X-rays, are advised as needed. Electronically signed by Duane Thompson 01-23-2025 6:44 PM Shoulder X-Ray 01/23/25 16:53 EXAM: XR shoulder RT min 2V routine CLINICAL HISTORY: Shoulder trauma, no prior imaging TECHNIQUE: X-ray images of the right shoulder were obtained in anteroposterior (AP) and Y-view projections. COMPARISON: No prior studies available for comparison. FINDINGS: Osteopenia. Comminuted displaced fracture of the proximal humeral shaft. There is a cortical stepping/radiolucent line seen at the surgical neck of the humerus. A radiolucent line is seen through the scapular blade may suggests a skin fold. CT study is suggested if warranted clinically. No evidence of shoulder dislocation Soft Tissues: Moderate soft tissue edema around fracture site. Additional Findings: Osteoarthritic changes of the shoulder joint. IMPRESSION: 1. Comminuted displaced fracture of the proximal humeral shaft. 2. Fracture of the surgical neck of the humerus. 3. Moderate soft tissue swelling around the fracture site. 4. No shoulder dislocation. Disclaimer: A subtle bone abnormality or fracture may not be readily apparent on X-rays, thus clinical correlation and further imaging including follow-up CT, MRI, or follow-up X-rays are advised as needed. Electronically signed by Duane Thompson 01-23-2025 6:49 PM PG Care Time/CCT Total # of Minutes Spent Total Time Spent with Patient: Total time spent is greater than 50% in coordination of care (as documented) at patient's floor/unit and/or counseling patient: [place] [address] IN/OBS CONSULT LVL 5,80M (57 - DECISION FOR SURGERY) Patient Type New Medical Decision Making Moderate Complexity Diagnoses Fracture, humerus, proximal S42.291A Encounter type: initial encounter Fracture alignment: displaced Fracture morphology: other fracture Fracture type: closed Laterality: right Morbid obesity E66.01 Fall with significant injury W19.XXXA Additional Codes Fx Shoulder/Humerus - Proximal humerus: Proximal humerus ([id number]) (1) Fracture, humerus, proximal Encounter type: initial encounter Fracture alignment: displaced Fracture morphology: other fracture Fracture type: closed Laterality: right Qualified Code(s): S42.291A - Other displaced fracture of upper end of right humerus, initial encounter for closed fracture
[2025-01-24] MEDS ORDERED: BUPIVACAINE 0.5 % 5 MG/1 ML PF 10ML VIAL ONE (08:03)
[2025-01-24] MEDS: amLODIPine BESYLATE 5 MG TAB PO SCH (08:58)
[2025-01-24] MEDS: ATORVASTATIN 40 MG TAB PO SCH (08:58)
[2025-01-24] MEDS: CHOLECALCIFEROL 25 MCG (1000 UNITS) TAB PO SCH (08:59)
[2025-01-24] MEDS: FOLIC ACID 1 MG TAB PO SCH (08:59)
[2025-01-24] MEDS: CYANOCOBALAMIN (B-12) 500 MCG TABLET PO SCH (08:59)
[2025-01-24] MEDS: VIBEGRON 75 MG TAB PO SCH (08:59)
[2025-01-24] MEDS: ESCITALOPRAM OXALATE 10 MG TAB PO SCH (08:59)
[2025-01-24] MEDS: CALCIUM 600MG + VIT D 400 IU TAB PO SCH (08:59)
[2025-01-24] MEDS: ceFAZolin 3000MG 3,000 MG/72.5 ML BAG IV ONE (09:30)
[2025-01-24] MEDS ORDERED: ceFAZolin 330 MG/ML 1 GM VIAL ONE (09:32)
[2025-01-24] MEDS ORDERED: GLYCOPYRROLATE 0.2 MG/ML VIAL ONE (09:38)
[2025-01-24] MEDS ORDERED: SUGAMMADEX SODIUM 200 MG/2 ML VIAL IV ONE (09:40)
[2025-01-24] MEDS ORDERED: PHENYLEPHRINE 100MCG/ML 5ML SYR ONE (09:45)
[2025-01-24] MEDS ORDERED: PHENYLEPHRINE HCL 10 MG/ML VIAL ONE (09:58)
--- NOTE | 2025-01-24 11:16 | Operative Report ---
PG Post Operative Report Pre & Post Diagnosis Operation Date: 01/24/25 09:00 Pre-Op Diagnosis: Right Proximal Humerous Fracture. Post-Op Diagnosis: Right Proximal Humerous Fracture. I identified the patient and participated in the time-out.: Yes Procedure Operation Date: 01/24/25 09:00 Actual Procedures p Open Reduction Internal Fixation Right Humerous(Right) - Montrell Bonner DO Surgeon Montrell Bonner DO Braille Duplicating Machine Operator Adriel Carson PA-C Estimated Blood Loss 300 Findings Consistent with Post-Op Diagnosis Specimens None Description of Procedure On January 24, 2025 Jenniffer was brought in from her hospital room to the preoperative holding area. The operative extremity identified and signed. She was given a preoperative antibiotic. She was taken back the operating room and laid on table supine position. She put under general anesthesia. She was put into the beachchair position. The right shoulder and arm were prepped and draped sterile fashion. A timeout was done. The patient and the operative extremity was properly identified. A large deltopectoral approach was used. Dissection was taken down through the fascia. Care was taken not to disrupt any of the neurovascular structures. However, she was morbidly obese and she had a lot of fat in the area of her arm. With the displacement of the fracture, there was difficult to stay within the deltopectoral interval but I think I was able to achieve that. Once the deltopectoral interval was opened up to large retractors were used to expose the fracture. The fracture was reduced with a reduction clamp. Fluoroscopic images showed near anatomic reduction of the fracture. There was a comminuted fracture with multiple pieces both laterally and posteriorly. A Synthes 8 hole proximal humeral locking plate was then placed. Appropriate placement was checked on fluoroscopy. A single compression screw was placed both proximally and d istally. The clamps were removed. Fluoroscopic images showed good alignment of the fracture and good alignment of the plate. Additional compression and locking screws were then placed both proximally and distally. Length of the screws were checked on fluoroscopic imaging. Final x-rays were taken and I was happy with the overall reduction of the fracture and the placement of the plate. Her arm was brought through a range of motion and everything was felt to be stable. Hemostasis was obtained meticulously throughout the case. The surgical site was irrigated with normal saline solution by pulse lavage. The deep fascial layer was closed with #1 Vicryl. A fat layer was closed with #1 Vicryl. Skin was closed with 2-0 Vicryl and darleen. She was then placed in a soft dressing and a regular arm sling. She was then extubated and transferred back to a hospital bed. She was taken to the postanesthesia care unit in stable condition. She tolerated the procedure well. Adriel Carson PA-C, was present for the entire procedure. He was critical for patient positioning, prepping, draping, retraction exposure, wound closure and application of sterile dressing. I attest to the content of the Intraoperative Record and any orders documented therein. Any exceptions are noted below.
--- NOTE | 2025-01-24 12:06 | Anesthesiology Progress Note ---
Date of Service January 24, 2025 Anesthesia Post Procedure Vital Signs Vital Signs: Temp Pulse Pulse Pulse Resp BP BP 01/24/25 11:50 82 21 134/88 01/24/25 11:40 84 13 143/85 H 01/24/25 11:33 36.2 C L 87 11 L 125/85 01/24/25 07:33 36.5 C 54 L 16 127/80 01/23/25 23:14 36.4 C L 58 L 18 128/68 01/23/25 22:59 01/23/25 22:23 36.4 C L 18 128/68 01/23/25 21:20 36.7 C 54 L 20 129/81 01/23/25 21:00 56 L 20 129/81 01/23/25 20:46 58 L 01/23/25 20:00 76 20 137/95 01/23/25 20:00 78 19 137/95 01/23/25 19:00 66 18 133/79 01/23/25 19:00 54 L 19 133/79 01/23/25 18:00 58 L 18 134/95 01/23/25 17:30 76 20 125/79 01/23/25 17:12 79 20 136/70 01/23/25 17:09 60 01/23/25 16:55 36.8 C 75 20 143/92 H Pulse Ox O2 Del Method O2 Flow Rate 01/24/25 11:50 97 Oxymask 4 01/24/25 11:40 100 Oxymask 8 01/24/25 11:33 98 Oxymask 10 01/24/25 07:33 98 Room Air 01/23/25 23:14 98 Nasal Cannula 01/23/25 22:59 Nasal Cannula 01/23/25 22:23 98 Nasal Cannula 2 01/23/25 21:20 100 Room Air 01/23/25 21:00 100 Nasal Cannula 2 01/23/25 20:46 01/23/25 20:00 99 Nasal Cannula 2 01/23/25 20:00 99 Nasal Cannula 2 01/23/25 19:00 99 Nasal Cannula 2 01/23/25 19:00 93 Nasal Cannula 2 01/23/25 18:00 92 Room Air 01/23/25 17:30 94 Room Air 01/23/25 17:12 93 Room Air 01/23/25 17:09 01/23/25 16:55 92 Room Air Pain Intensity Right Hand: Pain Intensity: 6 Transfer of Care Handoff Completed per policy Notes Mental Status: alert / awake / arousable Patient Amnestic to Procedure: Yes Nausea / Vomiting: adequately controlled Pain: adequately controlled Airway Patency, RR, SpO2: stable & adequate BP & HR: stable & adequate Hydration State: stable & adequate Anesthetic Complications: no major complications apparent and Pt Satisfied with anesthetic care
[2025-01-24] MEDS: BUPIVACAINE LIPOSOME 1.3% 133 MG/10 ML VIAL ONE (12:33)
[2025-01-24] MEDS ORDERED: NALOXONE HCL 0.4 MG/1 ML VIAL/CARP IV PRN (12:35)
[2025-01-24] MEDS ORDERED: METOCLOPRAMIDE HCL INJ 5 MG/ML 2 ML VIAL IV PRN (12:35)
[2025-01-24] MEDS ORDERED: bisacodyL 10 MG SUPP PR PRN (12:35)
[2025-01-24] MEDS ORDERED: MAGNESIUM HYDROXIDE SUSP 30 ML UDC PO PRN (12:35)
[2025-01-24] MEDS: oxyCODONE HCL IR 5 MG TAB (IMMEDIATE RELEASE) PO PRN (13:13)
[2025-01-24] MEDS: KETOROLAC TROMETHAMINE 15 MG/ML VIAL IV SCH (14:17)
[2025-01-24] MEDS: ERGOCALCIFEROL 1250 MCG (50,000 UNITS) CAP PO SCH (14:21)
[2025-01-24] MEDS: ceFAZolin 2000MG 2,000 MG/15 ML SYR IV SCH (17:39)
[2025-01-24] MEDS: SENNA 8.6 MG TAB PO SCH (20:24)
[2025-01-24] MEDS: DOCUSATE SODIUM 100 MG CAP PO SCH (20:24)
[2025-01-25 06:26] LABS: Basophils # (auto) 0.01 K/uL (0.00-0.20); Basophils % (auto) 0.2 %; Eosinophils # (auto) 0.01 K/uL (0.00-0.50); Eosinophils % (auto) 0.2 %; Hematocrit (blood only) 28.3 % (37.0-47.0); Hemoglobin 9.1 g/dl (12.0-16.0); Immature Granulocytes # (auto) 0.02 K/uL (0.01-0.20); Immature Granulocytes % (auto) 0.3 %; Lymphocytes % (auto) 11.3 %; Mean Corpuscular Hemoglobin 31.5 pg (25.0-34.0); Mean Corpuscular Hgb Conc 32.2 g/dL (32.0-36.0); Mean Corpuscular Volume 97.9 fL (80.0-100.0); Mean Platelet Volume 11.3 fL (9.4-12.4); Monocytes # (auto) 0.65 K/uL (0.11-0.59); Monocytes % (auto) 10.5 %; Neutrophils # (auto) 4.81 K/uL (1.40-6.50); Neutrophils % (auto) 77.5 %; Platelet Count 161 K/uL (130-400); RDW Coefficient of Variation 13.2 % (11.5-14.5); RDW Standard Deviation 47.4 fL (36.4-46.3); Red Blood Count 2.89 M/uL (4.20-5.40)
[2025-01-25 06:51] LABS: BUN Creatinine Ratio 17.9 (10-20); Calcium 7.7 mg/dl (8.6-10.3); Creatinine Clr Calc Pharmacy 82.4 ml/min; INR 1.1 (0.9-1.1); Potassium 4.4 mmol/L (3.5-5.1); Prothrombin Time 11.6 Seconds (9.0-12.0)
--- NOTE | 2025-01-25 07:21 | Hospitalist Progress Note ---
Date of Service January 25, 2025 Assessment & Plan (1) Fracture, humerus, proximal: Plan: 74-year-old female with past medical history significant for multiple thyroid nodules, dyslipidemia, homozygous MTHFR mutation, obesity hypoventilation syndrome, obstructive sleep apnea noncompliant with CPAP, hypertension, morbid obesity, GERD, calculus of gallbladder without cholecystitis, urge incontinence, female stress incontinence, osteoporosis, history of pulmonary embolism, depression is status post fall and right humerus fracture. Patient was coming out of the [facility] after shopping and she was carrying a light bag and she thinks she tripped over the curb and she fell on the right shoulder. Did not hit her head. No loss of consciousness. Was not able to get up. Ambulance was called and patient was brought to the hospital. Prior to fall patient says she could ambulate 1-2 blocks without stopping. Fracture humerus proximal Status post mechanical fall Commuted displaced fracture of proximal humeral shaft with associated soft tissue swelling. Fx of the surgical neck of the humerus. s/p ORIF humerus; POD #1 under the care of Dr. Bonner. EBL 300mL Pain control with Oxy (utilized ONE dose over past 24 hours) and Ketoralac (EIGHT scheduled doses ordered then DC) RCRI ZERO; 3.9% risk of major cardiac event intraoperatively. Was requiring 2 L postop; now on room air; SPO2 98% tolerating advancing diet Ortho saw patient today; recommendations include [place] RUE continue with sling 23/04 Plan for follow-up 2 to 3 weeks as ortho outpatient History of pulmonary embolism History of homozygous MTHFR mutation Patient says last time she had PE was about 7 years ago INR is 2.4 on admission; Received Vitamin K in ED This AM; INR 1.1; resume Coumadin for this afternoon 01/25 trend PT/INR in a.m.; goal range 2-3 Hypocalcemia: Low Vitamin D: Hyperparathyroid: serum Ca+ 8.3 in ED--> received 1G Ca+Gluc--> 8.0--> 7.7 this AM iCa+ 1.1 Vit D level; 17.4; ordered Ergocalciferol weekly on 01/24; will require outpatient vitamin D levels to be obtained in 6 weeks; ensure placed on disc harge instructions. PTH level 112; likely contributing factor to hypocalcemia in the setting of decreased oral intake. Recommend PTH recheck in 6 weeks postdischarge R rib pain: Acute Right rib pain reported under right breast Due to nature of fall, obtained R rib x-ray; negative for rib fracture likely costochondritis or manipulation during surgery; monitor could consider lidocaine patch if persistent Morbid obesity Obstructive sleep apnea Patient states not using his CPAP Would benefit from sleep study as an outpatient Hypertension Lower extremity edema On amlodipine Lisinopril and Lasix on hold for OR; hopeful to resume on 01/26 IV hydralazine PRN for BP greater than 180 Lower extremity Doppler US; negative for DVT post-op creatinine 0.84 Hyperlipidemia takes atorvastatin; continue Urgent continence Myrbetriq; continue Depression takes Lexapro; continue Disposition: PCP: Dr. Lyman Code Status: Ful Code VTE Prophylaxis: teds and SCDs for now; resume Coumadin as able I spent a total of 58 minutes coordinating, documenting, and providing care for this patient excluding time spent inthe performance of separately billed services or time spent by another provider/QHP. . Admission and Anticipated Discharge Date Admission Date: January 23, 2025 Supervising Physician Co-Signing Physician Notes Attending addendum: The patient was seen and examined in medical floor She denies any symptoms and has been feeling a lot better On examination Sitting on a chair without any acute distress Hemodynamically stable with unremarkable physical examination Her right upper extremity is in a sling Her labs, medications and imaging studies reviewed Status post open reduction and internal fixation of right humerus remains stable medically Agree with assessment and plan as outlined above by NJ Olivares and take the full responsibility of care in the hospital Total time taken and documenting all this was [address] Marco Antonio Valenzuela Subjective Pt sitting in her bedside chair in no apparent distress. Was able to observe patient ambulating with PT today. Patient did well intraoperatively on 01/24 now s/p ORIF POD #1. Patient denies headache, dizziness, fatigue, palpitations, chest pain, SOB, abdominal pain or tenderness. Patient complains of right rib pain under her right breast. Given the nature of her mechanical fall will obtain x-ray imaging to rule out rib fracture. Please see A/P for further details regarding her hospital stay and lab values. Review of Systems Review of Systems: Neuro: (-) mechanical Falls, trauma, (-) slurred speech HEENT: (-) JETER, dizziness, dysphagia, visual or auditory changes CV: (-) CP, palpitations, swelling Resp: (-) SOB GI: (-) appetite changes, N/V/D, bowel changes : (-) urinary changes Skin: (-) rashes Psych: (-) anxiety, depression Physical Exam Physical Exam: Neuro: AAOx4, PERRLA, no aphagia, memory changes, CNII-XII grossly intact HEENT: head normocephalic, moist mucus membranes CV: S1/S2, (-) M/G/R, (-) edema, cap refill < 3 seconds Resp: Lungs CTA in all meehan. On RA GI: Abdomen S/NT/ND, Ax4 bowel sounds, (-) CVA tenderness Musculoskeletal: 3/5 RUE strength. 5/5 LUE strength, 5/5 B/L LE strength. Uses a walker for ambulation. R shoulder in sling. Right sided rib pain under right breast. Skin: (-) rashes , (-) erythema. Psych: euthymic mood Results & Data Results & Data Vital Signs (Past 12 Hours) Vital Signs Temp Pulse Resp BP Pulse Ox O2 Del Method O2 Flow Rate 01/25/25 06:55 36.6 C 62 16 106/67 98 Nasal Cannula 2 01/25/25 03:00 36.7 C 59 L 20 120/76 97 Room Air 01/24/25 23:00 36.8 C 56 L 18 114/75 94 Nasal Cannula 2 01/24/25 22:05 Nasal Cannula 2 Laboratory Results Short CBC 01/25/25 Range/Units 05:23 WBC 6.20 (4.8-10.8) K/ul Hgb 9.1 L (12.0-16.0) g/dl Hct 28.3 L (37.0-47.0) % Plt Count 161 (130-400) K/uL BMP 01/25/25 05:23 Sodium 139 Potassium 4.4 Chloride 105 Carbon Dioxide 31 BUN 15 Creatinine 0.84 Glucose 128 H Calcium 7.7 L Diagnostic Findings Ribs X-Ray 01/25/25 10:17 EXAM: Radiographs of the Right Ribs 2 Views INDICATION: Postoperative pain TECHNIQUE: Frontal and oblique views of the right ribs. COMPARISON: No relevant prior studies available. FINDINGS: Lungs and pleural spaces: No consolidation or pulmonary edema. No pleural effusion or pneumothorax. Bones/joints: No fracture, erosion or dislocation. Soft tissues: Skin darleen noted along the right humerus. There is a intact well-seated lateral humeral duong with multiple screws. There is a cortical lucency medial cortex mid humeral shaft. Right ribs intact. Degenerative changes noted in the spine. IMPRESSION: 1. Intact right ribs. 2. Postoperative changes right humerus with well-seated intact hardware. ACT 112: N/A Electronically signed by Melba Cho 01-25-2025 11:27 AM (1) Fracture, humerus, proximal Encounter type: initial encounter Fracture alignment: displaced Fracture morphology: other fracture Fracture type: closed Laterality: right Qualified Code(s): S42.291A - Other displaced fracture of upper end of right humerus, initial encounter for closed fracture
[2025-01-25] MEDS: MULTIVITAMIN TAB PO SCH (07:45)
--- NOTE | 2025-01-25 09:32 | Orthopedic Progress Note ---
Date of Service January 25, 2025 Assessment & Plan (1) Fall with significant injury: (2) Fracture, humerus, proximal: (3) S/P ORIF (open reduction internal fixation) fracture: Plan 74-year-old woman POD #1 ORIF right humerus; DOS: 01/24/2025. Orthopedically stable. Pain is well-controlled. She is neurologically intact to RUE. Plan: 1. DVT prophylaxis per primary service; Coumadin has been resumed. 2. Non-WB RUE. Maintain sling at all times, but may be removed briefly for hygiene purposes, and also to come out of to perform elbow, wrist, and digit ROM and retrograde massage. 3. PT/OT as tolerated for mobilization, safety precautions, and teaching ADLs. 4. Pain control doing well with current regimen. 5. Disposition - pending PT/OT evals. 6. F/u 2-3 weeks post-op w/ Dr. Bonner's team. Subjective Patient is POD# 1 s/p ORIF right humerus by Dr. Bonner on 01/24/2025. Patient says her pain is well-controlled this morning. Denies CP, SOB, N/V, R UE paresthesia. She notes no issues with function to her right upper extremity. She does have some expected edema distally, and understands some techniques she may do to help with this. We will see how PT/OT evals go. Review of Systems All systems reviewed & are unremarkable except as noted in HPI & below. Physical Exam GENERAL: AA&Ox3, NAD. Pleasant, affect is calm. Sitting upright in bed with sling donned to RUE, well-fitting. RESPIRATORY: Normal respiratory effort with no signs of distress. CHEST/AXILLA: Chest movement symmetrical. No deformities noted. CARDIOVASCULAR: No edema noted. SKIN: [place], warm and dry. MS/EXTREMITY: Shoulder dressing c/d/i. + wrist/elbow/digit AROM. Median/Ulnar/Radial nerve distributions intact to sensory/motor. Radial pulse intact, 2+. Results & Data Results & Data Laboratory Results . Laboratory Results - last 24 hr 01/25/25 01/25/25 05:23 08:49 WBC 6.20 RBC 2.89 L Hgb 9.1 L Hct 28.3 L MCV 97.9 MCH 31.5 MCHC 32.2 RDW Std Deviation 47.4 H RDW Coeff of Guido 13.2 Plt Count 161 MPV 11.3 Immature Gran % (Auto) 0.3 Neut % (Auto) 77.5 Lymph % (Auto) 11.3 [place] % (Auto) 10.5 Eos % (Auto) 0.2 Baso % (Auto) 0.2 Neut # (Auto) 4.81 Lymph # (Auto) 0.70 L [place] # (Auto) 0.65 H Eos # (Auto) 0.01 Baso # (Auto) 0.01 Immature Gran # (Auto) 0.02 PT 11.6 INR 1.1 Sodium 139 Potassium 4.4 Chloride 105 Carbon Dioxide 31 Anion Gap 3 BUN 15 Creatinine 0.84 Est Cr Clr Drug Dosing 82.4 eGFR 72.42 BUN/Creatinine Ratio 17.9 Glucose 128 H Calcium 7.7 L Ionized Calcium Pending PTH Intact Pending Diagnostic Findings PG Care Time/CCT Total # of Minutes Spent Total Time Spent with Patient: Total time spent is greater than 50% in coordination of care (as documented) at patient's floor/unit and/or counseling patient: [place] [address] Post Operative Follow-Up Patient Type Established History Problem Focused Exam Problem Focused Medical Decision Making Straight Forward Diagnoses Fall with significant injury W19.XXXA Fracture, humerus, proximal S42.291A Encounter type: initial encounter Fracture alignment: displaced Fracture morphology: other fracture Fracture type: closed Laterality: right S/P ORIF (open reduction internal fixation) fracture Z98.890; Z87.81 (2) Fracture, humerus, proximal Encounter type: initial encounter Fracture alignment: displaced Fracture morphology: other fracture Fracture type: closed Laterality: right Qualified Code(s): S42.291A - Other displaced fracture of upper end of right humerus, initial encounter for closed fracture
--- NOTE | 2025-01-25 11:29 | XRay Report ---
EXAM: Radiographs of the Right Ribs 2 Views INDICATION: Postoperative pain TECHNIQUE: Frontal and oblique views of the right ribs. COMPARISON: No relevant prior studies available. FINDINGS: Lungs and pleural spaces: No consolidation or pulmonary edema. No pleural effusion or pneumothorax. Bones/joints: No fracture, erosion or dislocation. Soft tissues: Skin darleen noted along the right humerus. There is a intact well-seated lateral humeral duong with multiple screws. There is a cortical lucency medial cortex mid humeral shaft. Right ribs intact. Degenerative changes noted in the spine. IMPRESSION: 1. Intact right ribs. 2. Postoperative changes right humerus with well-seated intact hardware. ACT 112: N/A Electronically signed by Melba Cho 01-25-2025 11:27 AM
--- NOTE | 2025-01-25 13:00 | Electrocardiogram Report ---
Test Reason : Blood Pressure : */* mmHG Vent. Rate : 55 BPM Atrial Rate : 267 BPM P-R Int : * ms QRS Dur : 76 ms QT Int : 462 ms P-R-T Axes : * -4 45 degrees QTcB Int : 441 ms Poor data quality, interpretation may be adversely affected Sinus bradycardia Inferior infarct , age undetermined Abnormal ECG When compared with ECG of 06-Oct-2022 12:34, Minimal criteria for Anterior infarct are no longer Present Inferior infarct is now Present Confirmed by [place] Cr ([id number]) on 01/25/2025 12:59:49 PM Referred By: REFERRED SELF Confirmed By: Mod[place] Cr
[2025-01-25] MEDS: WARFARIN SOD 5 MG TAB PO SCH (16:50)
--- NOTE | 2025-01-26 06:53 | Fluoroscopy Report ---
FL humerus RT 2V CLINICAL HISTORY: RIGHT PROXIMAL HUMERUS F COMPARISON STUDY: Radiographs 01/24/2020 FLUOROSCOPY TIME: 30 seconds FLUOROSCOPY IMAGES: 4 EXPOSURE DOSE: 3.5 mGy FINDINGS: Status post placement of plate and screw fusion fixating the acute proximal to mid humeral fracture deformity, now with satisfactory alignment. Expected postoperative soft tissue swelling with deep tissue air. No unexpected opaque foreign bodies identified. IMPRESSION: Fluoroscopic assistance as above. ACT 112: Negative or not required by law. Electronically signed by: Robert Vaughn M.D. 01/26/2025 6:51 AM
[2025-01-26 07:34] LABS: Hematocrit (blood only) 27.6 % (37.0-47.0); Hemoglobin 8.6 g/dl (12.0-16.0); Mean Corpuscular Hemoglobin 30.8 pg (25.0-34.0); Mean Corpuscular Hgb Conc 31.2 g/dL (32.0-36.0); Mean Corpuscular Volume 98.9 fL (80.0-100.0); Mean Platelet Volume 10.5 fL (9.4-12.4); Platelet Count 161 K/uL (130-400); RDW Coefficient of Variation 13.4 % (11.5-14.5); RDW Standard Deviation 48.3 fL (36.4-46.3); Red Blood Count 2.79 M/uL (4.20-5.40); White Blood Count 5.32 K/ul (4.8-10.8)
[2025-01-26 07:48] LABS: Creatinine Clr Calc Pharmacy 69.2 ml/min; Potassium 4.1 mmol/L (3.5-5.1)
--- NOTE | 2025-01-26 07:53 | Orthopedic Progress Note ---
Date of Service January 26, 2025 Assessment & Plan (1) S/P ORIF (open reduction internal fixation) fracture: POD 2 from ORIF of the right proximal humerus. Pain is well controlled. Dressing change today Continue sling, nonweightbearing RUE discharge planning: awaiting placement in rehab continue PT/OT Subjective . 74 year old patient POD 2 from ORIF right humerus fracture. Pain well controlled. No new complaints. Review of Systems All systems reviewed & are unremarkable except as noted in HPI & below. Physical Exam . alert and oriented. NAD. VSS Right arm: Dressing clean, dry, intact. Sling in place. Able to flex and extend wrist, thumb, and fingers appropriately. NVI Results & Data Results & Data Laboratory Results . Diagnostic Findings . PG Care Time/CCT Total # of Minutes Spent Total Time Spent with Patient: Total time spent is greater than 50% in coordination of care (as documented) at patient's floor/unit and/or counseling patient: Coding Level of Care Code 86822 Post Operative Follow-Up Diagnoses S/P ORIF (open reduction internal fixation) fracture Z98.890; Z87.81
[2025-01-26 08:08] LABS: INR 1.1 (0.9-1.1); Prothrombin Time 11.4 Seconds (9.0-12.0)
[2025-01-26 09:32] LABS: Ferritin 46.7 ng/ml (8-388)
[2025-01-26 10:15] LABS: Folate (Folic Acid),Ser orPlas > 22.30 ng/ml (>5.38); Vitamin B12 476 pg/ml (180-914)
[2025-01-26] MEDS: FUROSEMIDE 20 MG TAB PO SCH (10:48)
[2025-01-26] MEDS: lisinopril 20 MG TAB PO SCH (10:48)
--- NOTE | 2025-01-26 14:41 | Hospitalist Progress Note ---
Date of Service January 26, 2025 Assessment & Plan (1) Fracture, humerus, proximal: Plan: 74-year-old female with past medical history significant for multiple thyroid nodules, dyslipidemia, homozygous MTHFR mutation, obesity hypoventilation syndrome, obstructive sleep apnea noncompliant with CPAP, hypertension, morbid obesity, GERD, calculus of gallbladder without cholecystitis, urge incontinence, female stress incontinence, osteoporosis, history of pulmonary embolism, depression is status post fall and right humerus fracture. Patient was coming out of the [facility] after shopping and she was carrying a light bag and she thinks she tripped over the curb and she fell on the right shoulder. Did not hit her head. No loss of consciousness. Was not able to get up. Ambulance was called and patient was brought to the hospital. Prior to fall patient says she could ambulate 1-2 blocks without stopping. Fracture humerus proximal Status post mechanical fall Commuted displaced fracture of proximal humeral shaft with associated soft tissue swelling. Fx of the surgical neck of the humerus. s/p ORIF humerus; POD #2 EBL 300mL Pain controlled with Ketorolac; completed. RCRI ZERO; 3.9% risk of major cardiac event intraoperatively. tolerating advancing diet Ortho srecommendations include NWB RUE continue with sling 23/04 Plan for follow-up 2 to 3 weeks as ortho outpatient Subtherapeutic INR: History of pulmonary embolism History of homozygous MTHFR mutation Patient says last time she had PE was about 7 years ago INR is 2.4 on admission; Received Vitamin K in ED Coumadin resumed 01/24; remains subtherapeutic today/INR 1.1; Coumadin 7.5 mg PO today. trend PT/INR in a.m.; goal range 2-3 Given PE/DVT history, recent surgery, and hypoxia overnight with continued O2 requirement; will obtain Chest CTA to r/o PE Fe+ deficiency anemia: Likely secondary to post op No overt signs of bleeding No rib fracture Subtherapeutic on INR Anemia panel drawn; Fe+ level 0; started on PO Ferrous Sulfate R rib pain: Acute Right rib pain reported under right breast Due to nature of fall, obtained R rib x-ray; negative for rib fracture likely costochondritis or manipulation during surgery; monitor Ordered Lidoderm patch Hypocalcemia: IMPROVING Low Vitamin D: Hyperparathyroid: serum Ca+ 8.3 in ED--> received 1G Ca+Gluc--> 8.0--> 7.7 this AM iCa+ 1.1 Vit D level; 17.4; ordered Ergocalciferol weekly on 01/24; will require outpatient vitamin D levels to be obtained in 6 weeks; ensure placed on discharge instructions. PTH level 112; likely contributing factor to hypocalcemia in the setting of decreased oral intake. Recommend PTH recheck in 6 weeks postdischarge Morbid obesity Obstructive sleep apnea Patient states not using his CPAP Would benefit from sleep study as an outpatient Hypertension Lower extremity edema Takes amlodipine; continue Lisinopril and Lasix on hold for OR; resumed today IV hydralazine PRN for BP greater than 180 Lower extremity Doppler US; negative for DVT Creatinine remains normal Hyperlipidemia Takes atorvastatin; continue Urgent continence Takes Myrbetriq; continue Depression takes Lexapro; continue Disposition: PCP: Dr. Lyman Code Status: Full Code VTE Prophylaxis: teds and SCDs for now; Coumadin resumed I spent a total of 56 minutes coordinating, documenting, and providing care for this patient excluding time spent inthe performance of separately billed services or time spent by another provider/QHP. . Admission and Anticipated Discharge Date Admission Date: January 23, 2025 Supervising Physician Co-Signing Physician Notes Attending addendum: The patient was seen and examined in medical floor She denies any symptoms and has been feeling a lot better 01/26/2025 The patient was seen and examined in medical floor She has been feeling much better and complains of some pain in the right lower chest wall Denies any other significant symptoms On examination Lying in bed without any acute distress Hemodynamically stable with unremarkable physical examination Her right upper extremity is in a sling Her labs, medications and imaging studies reviewed Status post open reduction and internal fixation of right humerus remains stable medically Right lower chest wall painno evidence of rib fracture and will put lidocaine patch PT OT recommended rehab Agree with assessment and plan as outlined above by NJ Olivares and take the full responsibility of care in the hospital Total time taken and documenting all this was [address] Marco Antonio Valenzuela Subjective Pt sitting in her bedside chair in no apparent distress; is requiring O2 overnight and this AM. Pt initially was in the bathroom when I evaluated her today. s/p ORIF POD #2. Patient denies headache, dizziness, fatigue, palpitations, chest pain, abdominal pain or tenderness. Patient c/o right rib pain under her right breast; CXR negative for rib fracture. Given PE/DVT history, recent surgery, and hypoxia overnight with continued O2 requirement; will obtain Chest CTA to r/o PE Please see A/P for further details regarding her hospital stay and lab values. Review of Systems Review of Systems: Neuro: (-) mechanical Falls, trauma, (-) slurred speech HEENT: (-) JETER, dizziness, dysphagia, visual or auditory changes CV: (-) CP, palpitations, swelling Resp: (-) SOB GI: (-) appetite changes, N/V/D, bowel changes : (-) urinary changes Skin: (-) rashes Psych: (-) anxiety, depression Physical Exam Physical Exam: Neuro: AAOx4, PERRLA, no aphagia, memory changes, CNII-XII grossly intact HEENT: head normocephalic, moist mucus membranes CV: S1/S2, (-) M/G/R, (-) edema, cap refill < 3 seconds Resp: Lungs CTA in all meehan. On 2LNC GI: Abdomen S/NT/ND, Ax4 bowel sounds, (-) CVA tenderness Musculoskeletal: 3/5 RUE strength. 5/5 LUE strength, 5/5 B/L LE strength. Uses a walker for ambulation. R shoulder in sling. Right sided rib pain under right breast. Skin: (-) rashes , (-) erythema. Psych: euthymic mood Results & Data Results & Data Vital Signs (Past 12 Hours) Vital Signs Temp Pulse Resp BP Pulse Ox O2 Del Method O2 Flow Rate 01/26/25 14:21 36.5 C 83 18 111/76 95 Nasal Cannula 1.0 01/26/25 10:32 Nasal Cannula 2 01/26/25 07:24 36.7 C 65 18 124/82 94 Nasal Cannula 2.0 Laboratory Results Short CBC 01/26/25 Range/Units 06:56 WBC 5.32 (4.8-10.8) K/ul Hgb 8.6 L (12.0-16.0) g/dl Hct 27.6 L (37.0-47.0) % Plt Count 161 (130-400) K/uL BMP 01/26/25 06:56 Sodium 139 Potassium 4.1 Chloride 104 Carbon Dioxide 32 BUN 22 Creatinine 1.00 Glucose 107 H Calcium 8.0 L (1) Fracture, humerus, proximal Encounter type: initial encounter Fracture alignment: displaced Fracture morphology: other fracture Fracture type: closed Laterality: right Qualified Code(s): S42.291A - Other displaced fracture of upper end of right humerus, initial encounter for closed fracture
[2025-01-26] MEDS ORDERED: WARFARIN SOD 2.5 MG TAB PO SCH (16:00)
[2025-01-26] MEDS: OPTIRAY 320 125ml IV ONE (16:11)
--- NOTE | 2025-01-26 17:10 | CT Scan Report ---
EXAM: CT angio chest PE protocol CLINICAL HISTORY: PE. TECHNIQUE: Contiguous 3.[address] angiographic images of the chest were acquired with the administration of intravenous contrast. Coronal and sagittal reconstructions were obtained. One of these 3D techniques was utilized: Maximum Intensity Pixel (MIP), 3D Reconstructed Images, Volume Rendered Images, Surface Shaded Rendering. One of the following dose reduction techniques were utilized for this exam: Automated exposure control, adjustment of the mA and/or kV according to patient size, and use of iterative reconstruction. COMPARISON: CR 01/23/2025. CT angio 11/18/2020. FINDINGS: Aorta: Aortic atherosclerotic changes in the form of mild wall thickening, calcifications, and tortuosity. The thoracic aorta is normal in caliber. No evidence of aneurysm, dissection. Aortic arch and descending thoracic aorta are unremarkable. Pulmonary Arteries: Mild dilatation of the central pulmonary arteries. Pulmonary arteries are normal in opacification. No evidence of pulmonary embolism. No stenosis or filling defects. Superior Vena Cava (SVC) and Inferior Vena Cava (IVC): Normal opacification and caliber. No evidence of thrombus or obstruction. Coronary Arteries: Coronary arteries are well-opacified. No significant stenosis or atherosclerotic changes. Mediastinum: Anterior mediastinal small mass measures 2.7x2 cm. Stable. Enlarged left thyroid lobe, with hypodense nodules. Stable. Please correlate with thyroid ultrasound. Heart: Moderate cardiomegaly. Stable. Minimal pericardial effusion. Lungs: Groundglass opacities within the lungs favor atelectasis. Few small lung emphysematous bullae. No evidence of consolidation, nodules, or masses. No pleural effusion or thickening. Bones: No fractures or lytic/sclerotic lesions of the visualized bony structures. Normal alignment and bone density. Thoracic and upper lumbar vertebral degenerative changes. Soft Tissues: Normal appearance of the visualized soft tissues. No abnormal masses or fluid collections. A small hiatal hernia is present. Upper abdomen: Mild perinephric stranding, likely chronic cholecystitis. Small splenule. IMPRESSION: 1. No pulmonary emboli identified. 2. Mild dilatation of the central pulmonary arteries raises the possibility of pulmonary arterial hypertension. 3. Moderate cardiomegaly. 4. Compared to CR 01/23/2025. CT angio 11/18/2020. Stable findings. Electronically signed by Duane Thompson 01-26-2025 5:10 PM
[2025-01-26] MEDS: WARFARIN SOD 7.5 MG TAB PO ONE (17:14)
[2025-01-26] MEDS: LIDOCAINE 5% 1 PATCH TD SCH (17:14)
[2025-01-26] MEDS: FERROUS SULFATE 325 MG TAB PO SCH (17:14)
[2025-01-27 04:25] LABS: Hematocrit (blood only) 24.7 % (37.0-47.0); Hemoglobin 7.8 g/dl (12.0-16.0); Mean Corpuscular Hemoglobin 31.2 pg (25.0-34.0); Mean Corpuscular Hgb Conc 31.6 g/dL (32.0-36.0); Mean Corpuscular Volume 98.8 fL (80.0-100.0); Mean Platelet Volume 10.3 fL (9.4-12.4); Platelet Count 147 K/uL (130-400); RDW Coefficient of Variation 13.3 % (11.5-14.5); RDW Standard Deviation 48.4 fL (36.4-46.3); White Blood Count 4.61 K/ul (4.8-10.8)
[2025-01-27 04:39] LABS: BUN Creatinine Ratio 22.1 (10-20); Calcium 7.9 mg/dl (8.6-10.3); Creatinine Clr Calc Pharmacy 89.9 ml/min; Potassium 4.1 mmol/L (3.5-5.1)
[2025-01-27 04:49] LABS: INR 1.1 (0.9-1.1); Prothrombin Time 12.1 Seconds (9.0-12.0)
--- NOTE | 2025-01-27 07:10 | Hospitalist Progress Note ---
Date of Service January 27, 2025 Assessment & Plan (1) Fracture, humerus, proximal: Plan: 74-year-old female with past medical history significant for multiple thyroid nodules, dyslipidemia, homozygous MTHFR mutation, obesity hypoventilation syndrome, obstructive sleep apnea noncompliant with CPAP, hypertension, morbid obesity, GERD, calculus of gallbladder without cholecystitis, urge incontinence, female stress incontinence, osteoporosis, history of pulmonary embolism, depression is status post fall and right humerus fracture. Patient was coming out of the [facility] after shopping and she was carrying a light bag and she thinks she tripped over the curb and she fell on the right shoulder. Did not hit her head. No loss of consciousness. Was not able to get up. Ambulance was called and patient was brought to the hospital. Prior to fall patient says she could ambulate 1-2 blocks without stopping. Fracture humerus proximal Status post mechanical fall Commuted displaced fracture of proximal humeral shaft with associated soft tissue swelling. Fx of the surgical neck of the humerus. s/p ORIF humerus; POD #2 EBL 300mL Pain controlled with Ketorolac; completed. Has not been taking narcotics. No BM post op yet; active bowel sounds and passing gas. tolerating advancing diet Ortho recommendations include NWB RUE continue with sling 23/04 Plan for follow-up 2 to 3 weeks as ortho outpatient Subtherapeutic INR: History of pulmonary embolism History of homozygous MTHFR mutation Patient says last time she had PE was about 7 years ago INR is 2.4 on admission; Received Vitamin K in ED Coumadin resumed 01/24; remains subtherapeutic today/INR 1.1; Coumadin 7.5 mg PO today. trend PT/INR in a.m.; goal range 2-3 01/26: Given PE/DVT history, recent surgery, and hypoxia overnight with continued O2 requirement; Chest CTA obtained; negative for PE Pericardial effusion noted in findings incidentally on Chest CTA; ECHO obtained with EF > 70%, no valve abnormalities noted. Fe+ deficiency anemia: Likely secondary to post op No overt signs of bleeding No rib fracture Subtherapeutic on INR Anemia panel drawn; Fe+ level 0; started on PO Ferrous Sulfate R rib pain: Acute Right rib pain reported under right breast Due to nature of fall, obtained R rib x-ray; negative for rib fracture likely costochondritis or manipulation during surgery; monitor Continue Lidoderm patch Hypocalcemia: IMPROVING Low Vitamin D: Hyperparathyroid: serum Ca+ 8.3 in ED--> received 1G Ca+Gluc--> 8.0--> 7.9 this AM iCa+ 1.1 Vit D level; 17.4; ordered Ergocalciferol weekly on 01/24; will require outpatient vitamin D levels to be obtained in 6 weeks; ensure placed on discharge instructions. PTH level 112; likely contributing factor to hypocalcemia in the setting of decreased oral intake. Recommend PTH recheck in 6 weeks postdischarge Morbid obesity Obstructive sleep apnea Patient states not using his CPAP Would benefit from sleep study as an outpatient Hypertension Lower extremity edema Takes amlodipine; continue Lisinopril and Lasix on hold for OR; resumed today IV hydralazine PRN for BP greater than 180 Lower extremity Doppler US; negative for DVT Creatinine remains normal Hyperlipidemia Takes atorvastatin; continue Urgent continence Takes Myrbetriq; continue Depression takes Lexapro; continue Disposition: PCP: Dr. Lyman Code Status: Full Code VTE Prophylaxis: teds and SCDs for now; Coumadin resumed I spent a total of 58 minutes coordinating, documenting, and providing care for this patient excluding time spent inthe performance of separately billed services or time spent by another provider/QHP. . Admission and Anticipated Discharge Date Admission Date: January 23, 2025 Supervising Physician Co-Signing Physician Notes Attending addendum: The patient was seen and examined in medical floor She denies any symptoms and has been feeling a lot better 01/26/2025 The patient was seen and examined in medical floor She has been feeling much better and complains of some pain in the right lower chest wall Denies any other significant symptoms 01/27/2025 The patient was seen and examined in medical floor She was noted to have decreased saturation and also her hemoglobin dropped to 7.8 She denies any symptoms and remains hemodynamically stable On examination Lying in bed without any acute distress Hemodynamically stable with unremarkable physical examination Her right upper extremity is in a sling Her labs, medications and imaging studies reviewed Status post open reduction and internal fixation of right humerus remains stable medically Right lower chest wall painno evidence of rib fracture and will put lidocaine patch PT OT recommended rehab Has had CT of the chest did not show any pulmonary embolism but it did show minimal atelectasis and possible small pericardial effusion Echo of the heart did not show any significant pericardial fluid CT of the abdomen pelvis was unremarkable for any bleeding Agree with assessment and plan as outlined above by NJ Olivares and take the full responsibility of care in the hospital Total time taken and documenting all this was [address] Marco Antonio Valenzuela Subjective Pt sitting in her bedside chair in no apparent distress; is requiring O2 overnight and this AM. Pt initially was in the bathroom when I evaluated her today. s/p ORIF POD #3. Patient denies headache, dizziness, fatigue, palpitations, chest pain, abdominal pain or tenderness. Has been weaned off of O2 today and maintaining saturations. Remains subtherapeutic INR 1.1, Hgb continues to trend down 1 point daily; recheck 8.0 01/27. Chest CTA and CTAP negative for acute bleed. Please see A/P for further details regarding her hospital stay and lab values. Review of Systems Review of Systems: Neuro: (-) mechanical Falls, trauma, (-) slurred speech HEENT: (-) JETER, dizziness, dysphagia, visual or auditory changes CV: (-) CP, palpitations, swelling Resp: (-) SOB GI: (-) appetite changes, N/V/D, bowel changes : (-) urinary changes Skin: (-) rashes Psych: (-) anxiety, depression Physical Exam Physical Exam: Neuro: AAOx4, PERRLA, no aphagia, memory changes, CNII-XII grossly intact HEENT: head normocephalic, moist mucus membranes CV: S1/S2, (-) M/G/R, (-) edema, cap refill < 3 seconds Resp: Lungs CTA in all meehan. On 1LNC GI: Abdomen S/NT/ND, Ax4 bowel sounds, (-) CVA tenderness Musculoskeletal: 3/5 RUE strength. 5/5 LUE strength, 5/5 B/L LE strength. Uses a walker for ambulation. R shoulder in sling. Right sided rib pain under right breast. Skin: (-) rashes , (-) erythema. Psych: euthymic mood Results & Data Results & Data Vital Signs (Past 12 Hours) Vital Signs Temp Pulse Resp BP Pulse Ox O2 Del Method O2 Flow Rate 01/27/25 06:53 36.6 C 84 16 104/70 97 Nasal Cannula 1.0 01/26/25 20:54 Nasal Cannula 1 Laboratory Results Short CBC 01/27/25 01/27/25 Range/Units 04:08 12:08 WBC 4.61 L 5.07 (4.8-10.8) K/ul Hgb 7.8 L 8.0 L (12.0-16.0) g/dl Hct 24.7 L 25.5 L (37.0-47.0) % Plt Count 147 148 (130-400) K/uL BMP 01/27/25 04:08 Sodium 139 Potassium 4.1 Chloride 105 Carbon Dioxide 33 H BUN 17 Creatinine 0.77 Glucose 113 H Calcium 7.9 L (1) Fracture, humerus, proximal Encounter type: initial encounter Fracture alignment: displaced Fracture morphology: other fracture Fracture type: closed Laterality: right Qualified Code(s): S42.291A - Other displaced fracture of upper end of right humerus, initial encounter for closed fracture
[2025-01-27] MEDS: OPTIRAY 320 100ml IV ONE (08:33)
--- NOTE | 2025-01-27 08:55 | CT Scan Report ---
CT SCAN OF THE ABDOMEN AND PELVIS WITH IV CONTRAST CLINICAL HISTORY: Fall. Anemia. COMPARISON STUDY: Right upper quadrant ultrasound February 15, 2012. TECHNIQUE: Following the IV administration of 94 cc of Optiray 320, CT scan of the abdomen and pelvi s is performed from the lung bases to the proximal femora. Images are reviewed in the axial, sagittal , and coronal planes. IV contrast was administered without complication. A dose lowering technique wa s utilized adhering to the principles of ALARA. CT DOSE: 1493.32 mGy.cm FINDINGS: Lung bases: The heart is enlarged. There is no pericardial effusion. The lung bases are clear. There is a small hiatal hernia. Liver: The liver morphology is normal and there are no hepatic lesions. There is no intrahepatic bili jordi ductal dilatation. The hepatic veins and portal veins are patent. No evidence for traumatic injur y. Gallbladder: There are gallstones within the gallbladder. Spleen: Normal in size and attenuation. No evidence for traumatic injury. Pancreas: There are no pancreatic lesions. No pancreatic ductal dilatation is present. Adrenal glands: Unremarkable. Kidneys: There are no renal lesions. There is no hydronephrosis. The kidneys enhance symmetrically. T here are bilateral renal parapelvic cysts. Excreted contrast from recent contrast-enhanced CT is inci dentally noted. Abdominal vasculature: The caliber of the abdominal aorta is normal. Major vasculature is patent. Bowel: The caliber and wall thickness of small and large bowel are normal. The appendix is Peritoneum: There is no intraperitoneal free air or abdominal ascites. Lymphadenopathy: None. Musculoskeletal: No lytic or blastic lesions are seen. No acute fractures are identified. There is mo derate body wall edema. IMPRESSION: 1. No acute traumatic findings within the abdomen or pelvis. 2. No retroperitoneal hematoma. 3. Mild body wall edema. 4. Cholelithiasis. ACT 112: Negative or not required by law. Electronically signed by: Wilmer Elizondo M.D. 01/27/2025 8:53 AM
[2025-01-27 12:35] LABS: Hematocrit (blood only) 25.5 % (37.0-47.0); Mean Corpuscular Hemoglobin 30.9 pg (25.0-34.0); Mean Corpuscular Hgb Conc 31.4 g/dL (32.0-36.0); Mean Corpuscular Volume 98.5 fL (80.0-100.0); Mean Platelet Volume 10.4 fL (9.4-12.4); Platelet Count 148 K/uL (130-400); RDW Coefficient of Variation 13.7 % (11.5-14.5); RDW Standard Deviation 49.2 fL (36.4-46.3); Red Blood Count 2.59 M/uL (4.20-5.40); White Blood Count 5.07 K/ul (4.8-10.8)
[2025-01-27] MEDS: WARFARIN SOD 7.5 MG TAB PO SCH (16:35)
[2025-01-27] MEDS: POLYETHYLENE (MIRALAX) 17 GM PACK PO PRN (19:52)
--- NOTE | 2025-01-28 06:46 | Hospitalist Progress Note ---
Date of Service January 28, 2025 Assessment & Plan (1) Fall: (2) Humerus fracture: Plan: Jenniffer Dumont is a 74y/o F with PMHx significant for multiple thyroid nodules, HLD, homozygous MTHFR mutation and history of PE anticoagulated on warfarin, ANDERS with CPAP noncompliance, obesity hypoventilation syndrome, HTN, GERD, urge incontinence and depression who is admitted under our service with an acute right proximal humeral shaft fracture in the setting of age-related osteoporosis after sustaining a mechanical fall. S/p right humerus ORIF performed by Dr. Bonner on 01/24. Had small BM last evening. PT/OT recommending rehab placement. Continue PRN pain control. Needs an ortho follow-up appointment in 2-3 weeks. Ortho recommendations include NWB RUE, maintain sling at all times (may be removed briefly for hygiene purposes and ROM exercises). (3) Subtherapeutic international normalized ratio (INR): (4) History of pulmonary embolism: Plan: History of homozygous MTHFR mutation. Last PE about 7 years ago per patients recollection. Received vitamin K preoperatively; warfarin resumed on 01/24. 01/26: Hypoxia overnight with continued supplemental O2 requirement. Given PE/DVT history and recent surgery, chest CTA was obtained which was NEGATIVE for PE. Incidentally noted minimal pericardial effusion therefore TTE was obtained. TTE with NO evidence of pericardial effusion; LVEF = >70%, moderate concentric LVH, normal LV wall motion. INR remains subtherapeutic at 1.3 today; Continue warfarin 7.5mg daily for now. Begin SQ Lovenox 40mg BID until INR beco mes therapeutic and then will discontinue. Repeat PT/INR in AM. (5) Anemia: Plan: Gradual downtrend in Hgb postoperatively to 7.8 at its lowest. No overt signs/symptoms of bleeding. CTAP obtained on 01/27 which was negative for any evidence of internal bleeding. Iron deficiency noted on routine anemia panel. Started on oral iron supplementation. H/H stabilizing today. No indication for transfusion at this time. Likely surgical blood loss contributing as well. Continue closely monitor H/H. (6) Rib pain on right side: Plan: Right-sided rib pain under the right breast reported. Right-sided rib XR imaging obtained given the nature of her fall which was NEGATIVE for any evidence of fractures. Likely costochondritis or due to manipulation during surgery. Continue Lidoderm patch application which has been helping. (7) Hypocalcemia: (8) Hypovitaminosis D: Plan: Serum calcium 8.3 in the ED. S/p 1g IV calcium gluconate in the ED. Ionized calcium 1.10 and 25-hydroxy vitamin D 17.4; weekly ergocalciferol ordered on 01/24. Will need outpatient vitamin D levels in 6 weeks. Calcium slowly uptrending. PTH level 112.1 - likely contributing factor to hypocalcemia in the setting of decreased oral intake. Recommend PTH recheck in 6 weeks following discharge. (9) HTN (hypertension): (10) Orthostasis: Plan: Notably orthostatic postoperatively. Suspect cause is multifactorial ISO recent surgical blood loss and inadequate oral fluid intake. Remains asymptomatic in this regard. Holding home antihypertensives and Lasix for now. Encourage use of LILLY hose stockings. Continue QS orthostatic vitals. Holding off on IVF for now 2/2 BLE edema. (11) Edema of both lower extremities: Plan: Chronic BLE lymphedema. BLE venous Doppler US obtained which was NEGATIVE. (12) Obstructive sleep apnea: (13) Morbid obesity: Plan: Notable noncompliance with CPAP therapy. Continue counseling regarding the importance of CPAP utilization. May utilize supplemental O2 HS while she is sleeping. Other Chronic Medical Conditions: HLD/Urge Incontinence/Depression - Continue home medications for these specific conditions. DVT Prophylaxis: SCDs/TEDs and warfarin plus Lovenox as per above 2/2 subtherapeutic INR. Code Status: FULL CODE PCP: Hayden Lyman DO Disposition: Not yet medically stable for discharge. Appreciate assistance of CM to arrange rehab placement. Patient seen in collaboration with Dr. Potter. Please see addendum. I spent a total of 55 minutes coordinating, documenting, and providing care for this patient excluding time spent in the performance of separately billed services or time spent by another provider/QHP. This included personally reviewing all current laboratories and imaging studies, medical reconciliation, outpatient chart review and discussion with specialists. This chart was completed in part utilizing Speech Voice Recognition Software. Grammatical errors, random word insertions, pronoun errors, and incomplete sentences are an occasional consequence of this system due to software limitations, ambient noise, and hardware issues. Any formal questions or concerns about the content, text, or information contained within the body of this dictation should be directly addressed to the provider for clarification. Admission and Anticipated Discharge Date Admission Date: January 23, 2025 Supervising Physician Co-Signing Physician Notes Attending Addendum: Case reviewed with the advanced practitioner. I have personally seen and examined patient at bedside I have reviewed the advanced practitioner's documentation on the date of service referenced in note, and I agree with, and take responsibility for the plan of care. please refer to her notes for full details patient seen and examined, records reviewed by myself as well all labs, imaging noted and reviewed ASSESSMENT AND PLAN diagnoses and plan of care as per advanced practitioner's notes I spent a total of 35 minutes coordinating, documenting, and providing care for this patient, excluding time spent in the performance of separately billed services or time spent by another provider/QHP. Barak Potter MD Subjective Patient seen and examined in room W351-2. NAEO. Now postoperative day #4 s/p right humerus ORIF. Saturating well on RA at the time of our conversation. Sitting up in chair at bedside. Notes improvement in right-sided rib pain with lidocaine patch application and adequate pain control at her RUE surgical site. Did have a small BM last evening. Denies any chest pain, SOB or abdominal pain. Notably orthostatic last evening however was asymptomatic, BP still on the lower side this morning. Discussed holding all of her BP medications for the time being to which she was agreeable with. Was up and moving earlier this morning with PT/OT. Did not experience any lightheadedness, dizziness or unstable gait/balance with this. Review of Systems Review of Systems: At least ten systems reviewed and negative, except as noted in the subjective section. Physical Exam Physical Exam: General: Elderly, F. Obese body habitus. NAD. Sitting up in chair at bedside. A&Ox4. Conversing appropriately. HEENT: Normocephalic, atraumatic. Conjunctivae normal. External ear and nose normal, oropharynx normal. Respiratory: Normal respiratory effort. Lungs clear to auscultation bilaterally. Saturating well on RA. No accessory muscle use. Cardiovascular: Regular rate and rhythm. 1-2+ BLE edema. + BLE TEDs stockings in place. Abdomen/GI: Normoactive bowel sounds, soft, nontender to palpation in all quadrants. Extremities/MSK: + RUE in sling. + R hand swelling but no overlying erythema or warmth with palpation. 3/5 RUE strength, 5/5 strength in all other extremities. Uses a walker for ambulation. + R-sided rib pain under R breast with palpation. Neurologic: No overt focal deficits, CN's II-XI not formally tested but appear grossly intact bilaterally. Results & Data Results & Data Vital Signs (Past 12 Hours) Vital Signs Temp Pulse Resp BP Pulse Ox O2 Del Method O2 Flow Rate 01/27/25 20:00 Nasal Cannula 2 01/27/25 19:45 37.3 C 82 18 134/81 97 Room Air Laboratory Results Short CBC 01/27/25 01/28/25 Range/Units 12:08 08:28 WBC 5.07 4.91 (4.8-10.8) K/ul Hgb 8.0 L 8.1 L (12.0-16.0) g/dl Hct 25.5 L 25.2 L (37.0-47.0) % Plt Count 148 174 (130-400) K/uL BMP 01/28/25 08:28 Sodium 140 Potassium 4.2 Chloride 104 Carbon Dioxide 33 H BUN 14 Creatinine 0.68 Glucose 141 H Calcium 8.1 L (1) Fall Encounter type: initial encounter Qualified Code(s): W19.XXXA - Unspecified fall, initial encounter (2) Humerus fracture Encounter type: initial encounter Fracture alignment: displaced Fracture morphology: other fracture Fracture type: closed Humerus Location: proximal Laterality: right Qualified Code(s): S42.291A - Other displaced fracture of upper end of right humerus, initial encounter for closed fracture (5) Anemia Anemia type: unspecified type Qualified Code(s): D64.9 - Anemia, unspecified (9) HTN (hypertension) Hypertension type: unspecified Qualified Code(s): I10 - Essential (primary) hypertension
[2025-01-28] MEDS ORDERED: SODIUM CHLORIDE 0.9% 1,000 ML IV SCH (07:45)
[2025-01-28 08:53] LABS: Hematocrit (blood only) 25.2 % (37.0-47.0); Hemoglobin 8.1 g/dl (12.0-16.0); Mean Corpuscular Hemoglobin 31.8 pg (25.0-34.0); Mean Corpuscular Hgb Conc 32.1 g/dL (32.0-36.0); Mean Corpuscular Volume 98.8 fL (80.0-100.0); Mean Platelet Volume 10.5 fL (9.4-12.4); Platelet Count 174 K/uL (130-400); RDW Coefficient of Variation 13.5 % (11.5-14.5); RDW Standard Deviation 48.6 fL (36.4-46.3); Red Blood Count 2.55 M/uL (4.20-5.40); White Blood Count 4.91 K/ul (4.8-10.8)
[2025-01-28 09:20] LABS: BUN Creatinine Ratio 20.6 (10-20); Calcium 8.1 mg/dl (8.6-10.3); Creatinine Clr Calc Pharmacy 101.7 ml/min; Potassium 4.2 mmol/L (3.5-5.1)
[2025-01-28 09:29] LABS: INR 1.3 (0.9-1.1); Prothrombin Time 14.2 Seconds (9.0-12.0)
[2025-01-28] MEDS: ENOXAPARIN INJ 40 MG/0.4 ML SYR SQ SCH (12:08)
[2025-01-29] MEDS: ENOXAPARIN INJ 40 MG/0.4 ML SYR SQ SCH (00:10)
[2025-01-29 06:47] LABS: Hematocrit (blood only) 23.8 % (37.0-47.0); Hemoglobin 7.6 g/dl (12.0-16.0); Mean Corpuscular Hgb Conc 31.9 g/dL (32.0-36.0); Mean Corpuscular Volume 97.1 fL (80.0-100.0); Mean Platelet Volume 10.2 fL (9.4-12.4); Platelet Count 150 K/uL (130-400); RDW Coefficient of Variation 13.7 % (11.5-14.5); RDW Standard Deviation 48.8 fL (36.4-46.3); Red Blood Count 2.45 M/uL (4.20-5.40); White Blood Count 3.58 K/ul (4.8-10.8)
[2025-01-29 07:10] LABS: Calcium 7.9 mg/dl (8.6-10.3); Magnesium 2.1 mg/dl (1.7-2.4); Potassium 4.3 mmol/L (3.5-5.1)
--- NOTE | 2025-01-29 07:13 | Hospitalist Progress Note ---
Date of Service January 29, 2025 Assessment & Plan (1) Fall: (2) Humerus fracture: Plan: Jenniffer Dumont is a 74y/o F with PMHx significant for multiple thyroid nodules, HLD, homozygous MTHFR mutation and history of PE anticoagulated on warfarin, ANDRES with CPAP noncompliance, obesity hypoventilation syndrome, HTN, GERD, urge incontinence and depression who is admitted under our service with an acute right proximal humeral shaft fracture in the setting of age-related osteoporosis after sustaining a mechanical fall. S/p right humerus ORIF performed by Dr. Bonner on 01/24. Had small BM last evening. PT/OT recommending rehab placement. Continue PRN pain control. Needs an ortho follow-up appointment in 2-3 weeks. Ortho recommendations include NWB RUE, maintain sling at all times (may be removed briefly for hygiene purposes and ROM exercises). (3) Anemia: (4) Dark stools: Plan: Gradual downtrend in Hgb postoperatively. Some improvement yesterday Hgb now 7.6 this morning. CTAP previously obtained on 01/27 which was negative for any evidence of internal bleeding. Iron deficiency noted on routine anemia panel. Started on oral iron sup plementation. Surgical blood loss likely contributing as well. 01/28: Noted to have an episode of dark, black stools in the late afternoon. Unsure if due to iron supplementation. Need to rule-out possible upper GI bleed given recurrence of decline in Hgb therefore GI service was consulted. Plan for EGD tomorrow. NPO after [place]. Can have clear liquid diet until then. IV PPI BID. Hold warfarin. SQ Lovenox stopped. Will hold off on transfusing at this time. Repeat H/H at 12P and 6P - monitor trend. Check FOBT. If Hgb<7 on repeat H/H, will need to consider a transfusion. Need to obtain blood consent (unsure if already done). (5) Subtherapeutic international normalized ratio (INR): (6) History of pulmonary embolism: Plan: History of homozygous MTHFR mutation. Last PE about 7 years ago per patients recollection. Received vitamin K preoperatively; warfarin resumed on 01/24. 01/26: Hypoxia overnight with continued supplemental O2 requirement. Given PE/DVT history and recent surgery, chest CTA was obtained which was NEGATIVE for PE. Incidentally noted minimal pericardial effusion therefore TTE was obtained. TTE with NO evidence of pericardial effusion; LVEF = >70%, moderate concentric LVH, normal LV wall motion. INR remains subtherapeutic at 1.6 today however, given concern for possible upper GI bleed, need to hold warfarin and stop SQ Lovenox as per above. (7) Rib pain on right side: Plan: Right-sided rib pain under the right breast reported. Right-sided rib XR imaging obtained given the nature of her fall which was NEGATIVE for any evidence of fractures. Likely costochondritis or due to manipulation during surgery. Continue Lidoderm patch application which has been helping well. (8) Hypocalcemia: (9) Hypovitaminosis D: Plan: Serum calcium 8.3 in the ED. S/p 1g IV calcium gluconate in the ED. Ionized calcium 1.10 and 25-hydroxy vitamin D 17.4; weekly ergocalciferol ordered on 01/24. Will need outpatient vitamin D levels in 6 weeks. Serum calcium 7.9 today - continue to monitor. PTH level 112.1 - likely contributing factor to hypocalcemia in the setting of decreased oral intake. Recommend PTH recheck in 6 weeks following discharge. (10) HTN (hypertension): (11) Orthostasis: Plan: Notably orthostatic postoperatively. Now improving. Suspect cause was multifactorial ISO recent surgical blood loss and inadequate o ral fluid intake. Remains asymptomatic in this regard. Continue holding home antihypertensives and Lasix for now. Encourage use of LILLY hose stockings. (12) Edema of both lower extremities: Plan: Chronic BLE lymphedema. BLE venous Doppler US obtained which was NEGATIVE. (13) Obstructive sleep apnea: (14) Morbid obesity: Plan: Notable noncompliance with CPAP therapy. Continue counseling regarding the importance of CPAP utilization. May utilize supplemental O2 HS while she is sleeping. Has been using 2L NC HS while admitted. Patient does not have any supplemental O2 at home. May need to consider home O2 support HS - discussed with patient. Other Chronic Medical Conditions: HLD/Urge Incontinence/Depression - Continue home medications for these specific conditions. DVT Prophylaxis: SCDs/TEDs 2/2 worsening anemia and concern for possible upper GI bleed as per above. Code Status: FULL CODE PCP: Hayden Lyman DO Disposition: Discharge plans uncertain at this time. Plan for EGD tomorrow as per above. Will need rehab upon discharge. Patient seen in collaboration with Dr. Potter. Please see addendum. I spent a total of 62 minutes coordinating, documenting, and providing care for this patient excluding time spent in the performance of separately billed services or time spent by another provider/QHP. This included personally reviewing all current laboratories and imaging studies, medical reconciliation, outpatient chart review and discussion with specialists. This chart was completed in part utilizing Speech Voice Recognition Software. Grammatical errors, random word insertions, pronoun errors, and incomplete sentences are an occasional consequence of this system due to software limitations, ambient noise, and hardware issues. Any formal questions or concerns about the content, text, or information contained within the body of this dictation should be directly addressed to the provider for clarification. Admission and Anticipated Discharge Date Admission Date: January 23, 2025 Supervising Physician Co-Signing Physician Notes Attending Addendum: Case reviewed with the advanced practitioner. I have personally seen and examined patient at bedside I have reviewed the advanced practitioner's documentation on the date of service referenced in note, and I agree with, and take responsibility for the plan of care. please refer to her notes for full details patient seen and examined, records reviewed by myself as well all labs, imaging noted and reviewed ASSESSMENT AND PLAN diagnoses and plan of care as per advanced practitioner's notes I spent a total of 20 minutes coordinating, documenting, and providing care for this patient, excluding time spent in the performance of separately billed services or time spent by another provider/QHP. Barak Potter MD Subjective Patient seen and examined in room W351-2. Now postoperative day #5 s/p right humerus ORIF. Had an episode of dark black stools last evening. Hgb downtrending this morning to 7.6 - discussed holding all anticoagulation for now. She was seen by GI earlier this morning due to her episode of black stools and concern for possible melena. Plan for EGD tomorrow. Endorses significant improvement of her R-sided rib pain. Feels it has mostly subsided. No further BMs since last evening. Waiting to check FOBT. On clear liquid diet for now then NPO at [place]. Denies any abdominal pain or N/V. Worked with PT/OT this morning - no report of lightheadedness or dizziness with this. BP improving this morning. Has ANDRES. Unable to tolerate CPAP. Has been using 2L HS while admitted. Review of Systems Review of Systems: At least ten systems reviewed and negative, except as noted in the subjective section. Physical Exam Physical Exam: General: Elderly, F. Obese body habitus. NAD. Laying down in bed. Sleepy but easily arousable. A&Ox4. Conversing appropriately. HEENT: Normocephalic, atraumatic. Conjunctivae normal. External ear and nose normal, oropharynx normal. Respiratory: Normal respiratory effort. Lungs clear to auscultation bilaterally. On 2L NC and saturating in the upper 90s. No accessory muscle use. Cardiovascular: Regular rate and rhythm. BLE lymphedema. + BLE TEDs stockings in place. Abdomen/GI: Normoactive bowel sounds, soft, nontender to palpation in all quadrants. Extremities/MSK: + RUE in sling. + R hand swelling but no overlying erythema or warmth with palpation. RUE surgical dressing with minimal seepage. 3/5 RUE strength, 5/5 strength in all other extremities. Uses a walker for ambulation. Improvement in R-sided rib pain under R breast. Neurologic: No overt focal deficits, CN's II-XI not formally tested but appear grossly intact bilaterally. Results & Data Results & Data Vital Signs (Past 12 Hours) Vital Signs Temp Pulse Resp BP Pulse Ox O2 Del Method O2 Flow Rate 01/28/25 21:52 37.2 C 85 18 151/91 H 97 Nasal Cannula 2 01/28/25 21:45 Nasal Cannula 2 Laboratory Results Short CBC 01/28/25 01/29/25 Range/Units 08:28 06:24 WBC 4.91 3.58 L (4.8-10.8) K/ul Hgb 8.1 L 7.6 L (12.0-16.0) g/dl Hct 25.2 L 23.8 L (37.0-47.0) % Plt Count 174 150 (130-400) K/uL BMP 01/28/25 01/29/25 08:28 06:24 Sodium 140 140 Potassium 4.2 4.3 Chloride 104 106 Carbon Dioxide 33 H 33 H BUN 14 Creatinine 0.68 Glucose 141 H Calcium 8.1 L 7.9 L (1) Fall Encounter type: initial encounter Qualified Code(s): W19.XXXA - Unspecified fall, initial encounter (2) Humerus fracture Encounter type: initial encounter Fracture alignment: displaced Fracture morphology: other fracture Fracture type: closed Humerus Location: proximal Laterality: right Qualified Code(s): S42.291A - Other displaced fracture of upper end of right humerus, initial encounter for closed fracture (3) Anemia Anemia type: unspecified type Qualified Code(s): D64.9 - Anemia, unspecified (10) HTN (hypertension) Hypertension type: unspecified Qualified Code(s): I10 - Essential (primary) hypertension
[2025-01-29 07:15] LABS: BUN Creatinine Ratio 22.7 (10-20); Creatinine Clr Calc Pharmacy 104.8 ml/min
[2025-01-29 07:35] LABS: INR 1.6 (0.9-1.1); Prothrombin Time 16.6 Seconds (9.0-12.0)
--- NOTE | 2025-01-29 09:44 | Gastrointestinal Consultation ---
Date of Consultation January 29, 2025 Assessment & Plan (1) Anemia: 74 year old female with past medical history significant for multiple thyroid nodules, dyslipidemia, homozygous MTHFR mutation, obesity hypoventilation syndrome, obstructive sleep apnea noncompliant with CPAP, hypertension, morbid obesity, GERD, calculus of gallbladder without cholecystitis, urge incontinence, female stress incontinence, osteoporosis, history of pulmonary embolism, depression and others below admitted following a fall - s/p right humerus fracture repair w/ downtrending HGB and report of melena. She is awake, alert and oriented w/ stable vital signs. Unfortunately she just finished eating a regular breakfast prior to our arrival. As hemodynamically stable will plan for EGD 01/30/25. - NPO after midnight - Hold coumadin - Stop NSAIDs - Trend HGB - Monitor/document GI output - Transfuse PRN per primary service - IV PPI twice daily We appreciate assistance in the management of any serological abnormality and corrections to include: hemoglobin >7, INR <2, platelets >50,000, potassium levels >3.5 but <5.3, and sodium levels within 5 points of the reference range prior to endoscopic evaluation. Thank you for allowing us to participate in the care of this patient. Please call with any acute changes, questions or concerns. Please see addendum below with additional recommendation from my supervising physician. I spent a total of 60 minutes on the date of service in review of patient's record, and previously obtained information in person and appropriate medical visit, discussion and education of plan, with patient and/or caregiver, placing orders for tests/referral/procedures as medically necessary and docu mentation of pertinent clinical information in patient's medical records for their visit today. Supervising Physician Co-Signing Physician Notes I saw and examined this patient with our nurse practitioner and agree with her assessment and plan. Significant hemoglobin drop post surgical procedure for humerus fracture. Continued takes daily ibuprofen and is on anticoagulation for prior history of pulmonary emboli. Suspect upper GI bleed possibility to peptic ulcer disease or NSAID induced gastropathy. Hemodynamically stable. Proceed with endoscopy in a.m. Please hold anticoagulation for the procedure. History of Present Illness Reason for Consultation: melena Requesting Physician: Barak Potter MD Attending Physician: Barak Potter MD History of Present Illness 74-year-old female with past medical history significant for multiple thyroid nodules, dyslipidemia, homozygous MTHFR mutation, obesity hypoventilation syndrome, obstructive sleep apnea noncompliant with CPAP, hypertension, morbid obesity, GERD, calculus of gallbladder without cholecystitis, urge incontinence, female stress incontinence, osteoporosis, history of pulmonary embolism, depression and others below admitted following a fall - s/p right humerus fracture repair. GI was asked to evaluate for black stools. Pt was seen and evaluated, chart reviewed. Unfortunately she had just finished her breakfast prior to our arrival in her room. She notes she had a very dark,black stool x 1. No report of hematochezia. Denies abd pain, nausea/vomiting. Anticoagulated on Coumadin. Has been using Advil, 1 tablet daily for years. No previous EGD/Colonoscopy She believes here brother has colorectal cancer but is unsure of specifics. HGB 11.2 --> 7.6 BUN 15 CTAP 2024: No acute traumatic findings within the abdomen or pelvis.. No retroperitoneal hematoma. Mild body wall edema. Cholelithiasis. Allergies Allergy/AdvReac Type Severity Reaction Status Date / Time Fish Containing Products AdvReac Intermediate HEADACHE Verified 01/23/25 19:16 FROM SEAFOOD Home Medications Medication Instructions Recorded Confirmed Type amlodipine 2.5 mg tablet 2.5 mg PO QAM 01/23/25 01/23/25 History atorvastatin 40 mg tablet 40 mg PO QAM 01/23/25 01/23/25 History cyanocobalamin (vitamin B-12) 1,000 mcg PO QAM 01/23/25 01/23/25 History 1,000 mcg tablet (Vitamin B-12) escitalopram oxalate 10 mg tablet 10 mg PO QAM 01/23/25 01/23/25 History folic acid 1 mg tablet 1 mg PO QAM 01/23/25 01/23/25 History furosemide 20 mg tablet 20 mg PO QAM 01/23/25 01/23/25 History lisinopril 20 mg tablet 20 mg PO QAM 01/23/25 01/23/25 History mirabegron 50 mg tablet,extended 50 mg PO QAM 01/23/25 01/23/25 History release 24 hr (Myrbetriq) warfarin 5 mg tablet 2.5 mg PO 2XWK 01/23/25 01/23/25 History warfarin 5 mg tablet 5 mg PO 5XWK 01/23/25 01/23/25 History Patient History Medical History (Updated 01/29/25 @ 12:26 by Sierra Brown PA-C) Chronic anticoagulation History of pulmonary embolism Homozygous for MTHFR gene mutation Calculus of gallbladder GERD (gastroesophageal reflux disease) Osteoporosis Hyperlipidemia (11/11/11) Benign hypertension (11/11/11) Stress incontinence Depression Urge incontinence Morbid obesity Obstructive sleep apnea Obesity hypoventilation syndrome Thyroid nodule Surgical History (Updated 01/25/25 @ 09:28 by Adriel Carson PA-C) History of midurethral sling procedure Hx of hysterectomy Social History Smoking Status: Never smoker Second Hand Exposure: No; Do You Dip or Chew Tobacco: No; Tobacco Cessation Education Requested by Patient: No Hx Alcohol Use: No Hx Substance Use: No Preferred Language: Mongolian Communication Ability: Effective Drill Operator Automatic Required: No Beliefs That Will Affect Care: None marital status: / Current Living Situation: Alone current occupational status: retired Other Information That Helps Us Care for You: No Feels Safe at Home: Yes Assistive Devices: None Review of Systems Review of Systems: All other findings negative except as noted in HPI. Physical Exam Constitutional: WD/WN, vitals as above Respiratory: normal respiratory effort, lungs clear to auscultation Cardiovascular: Rate/Rhythm: regular rate and regular rhythm Gastrointestinal (Abdomen): normal bowel sounds, soft, nontender, no hepatosplenomegaly Skin: no rashes, warm and dry Results & Data Vital Signs (Past 12 Hours) Vital Signs Temp Pulse Resp BP Pulse Ox O2 Del Method O2 Flow Rate 01/29/25 07:53 98.6 F 73 18 149/88 H 97 Nasal Cannula 2 01/28/25 21:52 99.0 F 85 18 151/91 H 97 Nasal Cannula 2 01/28/25 21:45 Nasal Cannula 2 Laboratory Results 01/29/25 Range/Units 06:24 WBC 3.58 L (4.8-10.8) K/ul RBC 2.45 L (4.20-5.40) M/uL Hgb 7.6 L (12.0-16.0) g/dl Hct 23.8 L (37.0-47.0) % MCV 97.1 (80.0-100.0) fL MCH 31.0 (25.0-34.0) pg MCHC 31.9 L (32.0-36.0) g/dL RDW Std Deviation 48.8 H (36.4-46.3) fL RDW Coeff of Ugido 13.7 (11.5-14.5) % Plt Count 150 (130-400) K/uL MPV 10.2 (9.4-12.4) fL PT 16.6 H (9.0-12.0) Seconds INR 1.6 H (0.9-1.1) Sodium 140 (136-145) mmol/L Potassium 4.3 (3.5-5.1) mmol/L Chloride 106 (98-107) mmol/L Carbon Dioxide 33 H (21-32) mmol/L Anion Gap 1 L (3-11) BUN 15 (6-23) mg/dl Creatinine 0.66 (0.6-1.2) mg/dl Est Cr Clr Drug Dosing 104.8 ml/min eGFR 91.42 BUN/Creatinine Ratio 22.7 H (10-20) Glucose 98 (70-99(Fasting)) mg/dl Calcium 7.9 L (8.6-10.3) mg/dl Magnesium 2.1 (1.7-2.4) mg/dl PG Care Time/CCT Total # of Minutes Spent Total Time Spent with Patient: Total time spent is greater than 50% in coordination of care (as documented) at patient's floor/unit and/or counseling patient: Coding Level of Care Code 76175 INT INP/OBS CARE 2/55MIN Diagnoses Anemia, unspecified type D64.9 Anemia type: unspecified type (1) Anemia Anemia type: unspecified type Qualified Code(s): D64.9 - Anemia, unspecified
[2025-01-29] MEDS: PANTOprazole 40 MG/10 ML SYR IV SCH (10:32)
[2025-01-29 13:01] LABS: Hematocrit (blood only) 23.6 % (37.0-47.0); Hemoglobin 7.7 g/dl (12.0-16.0)
[2025-01-29 18:10] LABS: Hematocrit (blood only) 23.8 % (37.0-47.0); Hemoglobin 7.8 g/dl (12.0-16.0)
--- NOTE | 2025-01-30 07:38 | Hospitalist Progress Note ---
Date of Service January 30, 2025 Assessment & Plan (1) Fall: (2) Humerus fracture: Plan: Jenniffer Dumont is a 74y/o F with PMHx significant for multiple thyroid nodules, HLD, homozygous MTHFR mutation and history of PE anticoagulated on warfarin, ANDRES with CPAP noncompliance, obesity hypoventilation syndrome, HTN, GERD, urge incontinence and depression who is admitted under our service with an acute right proximal humeral shaft fracture in the setting of age-related osteoporosis after sustaining a mechanical fall. S/p right humerus ORIF performed by Dr. Bonner on 01/24. PT/OT recommending rehab placement. Continue PRN pain control. Needs an ortho follow-up appointment in 2-3 weeks. Ortho recommendations include NWB RUE, maintain sling at all times (may be removed briefly for hygiene purposes and ROM exercises). (3) Anemia: (4) Dark stools: Plan: Gradual downtrend in Hgb postoperatively. Hgb 7.8 this morning (unchanged from yesterday). CTAP previously obtained on 01/27 which was negative for any evidence of internal bleeding. Iron deficiency noted on routine anemia panel. Started on oral iron supplementation. Surgical blood loss likely contributing as well. 01/28: Noted to have an episode of dark, black stools in the late afternoon. Unsure if due to iron supplementation. Need to rule-out possible upper GI bleed given recurrence of decline in Hgb therefore GI service was consulted. Plan for EGD this afternoon. Continue IV PPI BID. Holding warfarin. FOBT not yet checked. No need to transfuse at this time given Hgb>7. Follow repeat H/H. (5) Subtherapeutic international normalized ratio (INR): (6) History of pulmonary embolism: Plan: History of homozygous MTHFR mutation. Last PE about 7 years ago per patients recollection. Received vitamin K preoperatively. Warfarin remains on hold as per above. Follow repeat PT/INR. 01/26: Hypoxic overnight with increased supplemental O2 requirement. Given PE/DVT history and recent surgery, chest CTA was obtained which was NEGATIVE for PE. Incidentally noted minimal pericardial effusion therefore TTE was obtained. TTE with NO evidence of pericardial effusion; LVEF = >70%, moderate concentric LVH, normal LV wall motion. (7) Rib pain on right side: Plan: Right-sided rib pain under the right breast reported. Right-sided rib XR imaging obtained given the nature of her fall which was NEGATIVE for any evidence of fractures. Likely costochondritis or due to manipulation during surgery. Continue Lidoderm patch application which has been helping well. (8) Hypocalcemia: (9) Hypovitaminosis D: Plan: Serum calcium 8.3 in the ED. S/p 1g IV calcium gluconate in the ED. Ionized calcium 1.10 and 25-hydroxy vitamin D 17.4; weekly ergocalciferol ordered on 01/24 (may need to increase dose). Will need outpatient vitamin D levels in 6 weeks. Serum calcium 7.9 today - continue to monitor. PTH level 112.1 - likely contributing factor to hypocalcemia in the setting of decreased oral intake. Recommend PTH recheck in 6 weeks following discharge. (10) HTN (hypertension): (11) Orthostasis: Plan: Notably orthostatic postoperatively. Now improving. Suspect cause was multifactorial ISO recent surgical blood loss and inadequate oral fluid intake. Remains asymptomatic in this regard. Continue holding home antihypertensives and Lasix for now. Encourage use of LILLY hose stockings. (12) Edema of both lower extremities: Plan: Chronic BLE lymphedema. BLE venous Doppler US obtained which was NEGATIVE. (13) Obstructive sleep apnea: (14) Morbid obesity: Plan: Notable noncompliance with CPAP therapy. Continue counseling regarding the importance of CPAP utilization. May utilize supplemental O2 HS while she is sleeping. Has been using 2L NC HS while admitted. Patient does not have any supplemental O2 at home. May need to consider home O2 support HS - discussed with patient. Other Chronic Medical Conditions: HLD/Urge Incontinence/Depression - Continue home medications for these specific conditions. DVT Prophylaxis: SCDs/TEDs 2/2 worsening anemia and concern for possible upper GI bleed as per above. Code Status: FULL CODE PCP: Hayden Lyman DO Disposition: Discharge plans uncertain at this time. Scheduled to undergo EGD this afternoon. Will need SNF placement on discharge - appreciate CM assistance. Patient seen in collaboration with Dr. Potter. Please see addendum. I spent a total of 48 minutes coordinating, documenting, and providing care for this patient excluding time spent in the performance of separately billed services or time spent by another provider/QHP. This included personally reviewing all current laboratories and imaging studies, medical reconciliation, outpatient chart review and discussion with specialists. This chart was completed in part utilizing Speech Voice Recognition Software. Grammatical errors, random word insertions, pronoun errors, and incomplete sentences are an occasional consequence of this system due to software limitations, ambient noise, and hardware issues. Any formal questions or concerns about the content, text, or information contained within the body of this dictation should be directly addressed to the provider for clarification. Admission and Anticipated Discharge Date Admission Date: January 23, 2025 Supervising Physician Co-Signing Physician Notes Attending Addendum: Case reviewed with the advanced practitioner. I have reviewed the advanced practitioner's documentation on the date of service referenced in note, and I agree with, and take responsibility for the plan of care. please refer to her notes for full details patient seen and examined, records reviewed by myself as well diagnoses and plan of care as per advanced practitioner's notes I spent a total of 25 minutes coordinating, documenting, and providing care for this patient, excluding time spent in the performance of separately billed services or time spent by another provider/QHP. Barak Potter MD Subjective Patient seen and examined in room W1-2. [facility]. Scheduled to undergo EGD later this afternoon. Endorses good pain control. Denies any SOB, abdominal pain or chest pain. No further reported episodes of dark or black stools. Hgb still low however remains stable on repeat labs this morning. Review of Systems Review of Systems: At least ten systems reviewed and negative, except as noted in the subjective section. Physical Exam Physical Exam: General: Elderly, F. Obese body habitus. NAD. Laying down in bed. A&Ox4. Conversing appropriately. Flat affect. HEENT: Normocephalic, atraumatic. Conjunctivae normal. External ear and nose normal, oropharynx normal. Respiratory: Normal respiratory effort. Lungs clear to auscultation bilaterally. On RA during our conversation. No accessory muscle use. Cardiovascular: Regular rate and rhythm. BLE lymphedema. + BLE TEDs stockings in place. Abdomen/GI: Normoactive bowel sounds, soft, nontender to palpation in all quadrants. Extremities/MSK: + RUE in sling. + R hand swelling but no overlying erythema or warmth with palpation. RUE surgical dressing with minimal seepage. 3/5 RUE strength, 5/5 strength in all other extremities. Uses a walker for ambulation. Improvement in R-sided rib pain under R breast. Neurologic: No overt focal deficits, CN's II-XI not formally tested but appear grossly intact bilaterally. Results & Data Results & Data Vital Signs (Past 12 Hours) Vital Signs Pulse Ox O2 Del Method O2 Flow Rate 01/30/25 06:26 94 Room Air 01/29/25 20:00 Nasal Cannula 2 Laboratory Results Short CBC 01/29/25 01/29/25 01/30/25 Range/Units 12:43 17:43 07:37 WBC Cancelled Hgb 7.7 L 7.8 L Cancelled (12.0-16.0) g/dl Hct 23.6 L 23.8 L Cancelled (37.0-47.0) % Plt Count Cancelled 01/30/25 Range/Units 08:50 WBC 3.84 L Hgb 7.8 L (12.0-16.0) g/dl Hct 24.4 L (37.0-47.0) % Plt Count 164 BMP 01/30/25 07:37 Sodium 137 Potassium 4.4 Chloride 105 Carbon Dioxide 27 BUN 12 Creatinine 0.66 Glucose 92 Calcium 7.9 L (1) Fall Encounter type: initial encounter Qualified Code(s): W19.XXXA - Unspecified fall, initial encounter (2) Humerus fracture Encounter type: initial encounter Fracture alignment: displaced Fracture morphology: other fracture Fracture type: closed Humerus Location: proximal Laterality: right Qualified Code(s): S42.291A - Other displaced fracture of upper end of right humerus, initial encounter for closed fracture (3) Anemia Anemia type: unspecified type Qualified Code(s): D64.9 - Anemia, unspecified (10) HTN (hypertension) Hypertension type: unspecified Qualified Code(s): I10 - Essential (primary) hypertension
--- NOTE | 2025-01-30 08:23 | Anesthesiology Consultation ---
Date of Service January 30, 2025 Assessment & Plan (1) Encounter for pre-operative examination: Chart Review Chart Review: Acceptable Risk for Surgery History Surgery Operation Date: 01/24/25 09:00 Proposed Procedures p Open Reduction Internal Fixation Arm(Left) - Montrell Bonner DO Operation Date: 01/30/25 16:45 Proposed Procedures p Esophagogastroduodenoscopy Dr. De Leon - Jose De Leon MD Height/Weight Height: 5 ft 7 in Weight: 133 kg Allergies Allergy/AdvReac Type Severity Reaction Status Date / Time Fish Containing Products AdvReac Intermediate HEADACHE Verified 01/23/25 19:16 FROM SEAFOOD Medications Home Medications Medication Instructions Recorded Confirmed Last Taken amlodipine 2.5 mg tablet 2.5 mg PO QAM 01/23/25 01/23/25 01/23/25 atorvastatin 40 mg tablet 40 mg PO QAM 01/23/25 01/23/25 01/23/25 cyanocobalamin (vitamin B-12) 1,000 mcg PO QAM 01/23/25 01/23/25 01/23/25 1,000 mcg tablet (Vitamin B-12) escitalopram oxalate 10 mg tablet 10 mg PO QAM 01/23/25 01/23/25 01/23/25 folic acid 1 mg tablet 1 mg PO QAM 01/23/25 01/23/25 01/23/25 furosemide 20 mg tablet 20 mg PO QAM 01/23/25 01/23/25 01/23/25 lisinopril 20 mg tablet 20 mg PO QAM 01/23/25 01/23/25 01/23/25 mirabegron 50 mg tablet,extended 50 mg PO QAM 01/23/25 01/23/25 01/23/25 release 24 hr (Myrbetriq) warfarin 5 mg tablet 2.5 mg PO 2XWK 01/23/25 01/23/25 01/23/25 warfarin 5 mg tablet 5 mg PO 5XWK 01/23/25 01/23/25 01/22/25 Active Medications Generic Name Dose Route Start Last Admin Trade Name Freq PRN Reason Stop Dose Admin Amlodipine Besylate 2.5 mg 01/24/25 09:00 01/27/25 10:11 Amlodipine Besylate 5 Mg Tab PO 02/23/25 08:59 2.5 mg QAM JAGDISH Administration Atorvastatin Calcium 40 mg 01/24/25 09:00 01/29/25 10:33 Atorvastatin 40 Mg Tab PO 02/23/25 08:59 40 mg QAM JAGDISH Administration Cyanocobalamin 1,000 mcg 01/24/25 09:00 01/29/25 10:33 Cyanocobalamin (B-12) 500 Mcg Tablet PO 02/23/25 08:59 1,000 mcg QAM JAGDISH Administration Docusate Sodium 100 mg 01/24/25 21:00 01/29/25 22:48 Docusate Sodium 100 Mg Cap PO 02/23/25 20:59 100 mg BID JAGDISH Administration Ergocalciferol 1,250 mcg 01/24/25 11:00 01/24/25 14:21 Ergocalciferol 1250 Mcg (50,000 Units) Cap PO 02/23/25 10:59 1,250 mcg Sa@0900 JAGDISH Administration Escitalopram Oxalate 10 mg 01/24/25 09:00 01/29/25 10:33 Escitalopram Oxalate 10 Mg Tab PO 02/23/25 08:59 10 mg QAM JAGDISH Administration Ferrous Sulfate 325 mg 01/26/25 17:00 01/29/25 17:06 Ferrous Sulfate 325 Mg Tab PO 02/25/25 16:59 325 mg BIDM JAGDISH Administration Folic Acid 1 mg 01/24/25 09:00 01/29/25 10:33 Folic Acid 1 Mg Tab PO 02/23/25 08:59 1 mg QAM JAGDISH Administration Furosemide 20 mg 01/26/25 10:45 01/27/25 10:11 Furosemide 20 Mg Tab PO 02/25/25 10:44 20 mg QAM JAGDISH Administration Pantoprazole Sodium 40 mg in 10 mls @ 5 mls/min 01/29/25 09:00 01/29/25 22:48 Protonix IV 02/28/25 08:59 5 mls/min BID JAGDISH Administration Lidocaine 1 patch 01/26/25 14:45 01/29/25 07:21 Lidocaine 5% 1 Patch TD 02/25/25 14:44 1 patch QAM JAGDISH Administration Lisinopril 20 mg 01/26/25 10:45 01/27/25 12:12 Lisinopril 20 Mg Tab PO 02/25/25 10:44 20 mg QAM JAGDISH Administration Miscellaneous 1 each 01/26/25 21:00 01/29/25 22:49 Remove Lidoderm Patch N/A 02/25/25 20:59 1 each DAILY@2100 JAGDISH Administration Multivitamins 1 tab 01/25/25 09:00 01/29/25 10:33 Multivitamin Tab PO 02/24/25 08:59 1 tab QAM JAGDISH Administration Oxycodone HCl 5 - 10 mg 01/24/25 12:35 01/24/25 13:13 Oxycodone Hcl Ir 5 Mg Tab (Immediate Release) PO 02/07/25 12:34 10 mg Q4H PRN Administration Pain or Pre PT Polyethylene Glycol 17 gm 01/23/25 22:23 01/27/25 19:52 Polyethylene (Miralax) 17 Gm Pack PO 02/22/25 22:22 17 gm DAILY PRN Administration Constipation Sennosides 17.2 mg 01/24/25 21:00 01/29/25 22:48 Senna 8.6 Mg Tab PO 02/23/25 20:59 17.2 mg HS JAGDISH Administration Vibegron 75 mg 01/24/25 09:00 01/29/25 10:33 Vibegron 75 Mg Tab PO 02/23/25 08:59 75 mg DAILY JAGDISH Administration Warfarin Sodium 5 mg 01/25/25 16:00 01/25/25 16:50 Warfarin Sod 5 Mg Tab PO 02/24/25 15:59 5 mg SuTuWeThSa@1600 JAGDISH Administration Warfarin Sodium 7.5 mg 01/27/25 16:00 01/28/25 17:39 Warfarin Sod 7.5 Mg Tab PO 02/26/25 15:59 7.5 mg DAILY@1600 JAGDISH Administration NPO Date Last Intake of Fluids: 01/23/25 Time Last Intake of Fluids: 23:59 Date Last Intake of Solids: 01/23/25 Time Last Intake of Solids: 15:00 Past Medical History Medical History (Updated 01/30/25 @ 08:23 by Rj Lau MD) Anemia Fracture, humerus, proximal Chronic anticoagulation History of pulmonary embolism Homozygous for MTHFR gene mutation Calculus of gallbladder GERD (gastroesophageal reflux disease) Osteoporosis Hyperlipidemia (11/11/11) Benign hypertension (11/11/11) Stress incontinence Depression Urge incontinence Morbid obesity Obstructive sleep apnea Obesity hypoventilation syndrome Thyroid nodule Past Surgical History Surgical History (Updated 01/30/25 @ 08:22 by Rj Lau MD) History of open reduction and internal fixation (ORIF) procedure proximal humerus History of midurethral sling procedure Hx of hysterectomy Social History Smoking Status: Never smoker Do You Dip or Chew Tobacco: No Hx Alcohol Use: No Hx Substance Use: No Physical Exam Vital Signs Last Vital Signs Temp 36.8 C 01/29/25 19:26 Pulse 73 01/29/25 19:26 Resp 20 01/29/25 15:11 BP 127/77 01/29/25 19:26 Pulse Ox 94 01/30/25 06:26 O2 Del Method Room Air 01/30/25 06:26 O2 Flow Rate 2 01/29/25 20:00 Testing Laboratory Results PT 16.6 Seconds (9.0-12.0) H 01/29/25 06:24 INR 1.6 (0.9-1.1) H 01/29/25 06:24 Blood Type O Positive 01/27/25 12:08 Antibody Screen NEGATIVE 01/27/25 12:08 Electrocardiogram Date: 01/23/25 Findings: + SB @ (55) and + KY (inferior) Echocardiogram Date: 02/26/25 LV Function: normal Valvular Disease: + no significant valvular disease increased right side presures
--- NOTE | 2025-01-30 08:34 | Orthopedic Progress Note ---
Date of Service January 30, 2025 Assessment & Plan (1) S/P ORIF (open reduction internal fixation) fracture: Operation Date: 01/24/25 09:00 Actual Procedures p Open Reduction Internal Fixation Right Humerous(Right) - Montrell Bonner DO Postop day 6 from the surgery above - She should remain in sling and continue to be nonweightbearing in the right upper extremity. - In regards to her right upper extremity edema, this is likely due to sling positioning. I did discuss with her repositioning her sling so that then her hand is higher up. Did also discuss with her using a pillow to lift up her arm as well. - From an orthopedic standpoint, she is stable for discharge. She should fo llow-up with Dr. Bonner in his outpatient clinic for postoperative care. I do understand that she has some other procedures coming up that are not orthopedic related. - Please reach out to orthopedics with any other questions or concerns regarding her orthopedic care. Subjective Operation Date: 01/24/25 09:00 Actual Procedures p Open Reduction Internal Fixation Right Humerous(Right) - Montrell Bonner DO Patient is postop day 6 from a right humerus open reduction internal fixation. She states she is doing okay in regards to her right arm. She states that it is painful. She is wearing her sling but her hand is swollen. She states that she does have a procedure coming up with general surgery to see why she is bleeding. No other questions or concerns today. Review of Systems All systems reviewed & are unremarkable except as noted in HPI & below. Physical Exam General: Alert and oriented. In no acute distress. Right upper extremity: Dressing check satisfactory. No saturation. Dressing is dry and intact. It was changed yesterday on 01/29/2025. She is wearing her sling. She does have edema in the right upper extremity, specifically the forearm and the hand. She does have good motion of her right hand and wrist. I do think this is due to sling positioning. Her hand is resting down. She is neurovascularly intact in the right upper extremity. Results & Data Results & Data Laboratory Results . Diagnostic Findings . PG Care Time/CCT Total # of Minutes Spent Total Time Spent with Patient: Total time spent is greater than 50% in coordination of care (as documented) at patient's floor/unit and/or counseling patient: Coding Level of Care Code 56406 Post Operative Follow-Up Diagnoses S/P ORIF (open reduction internal fixation) fracture Z98.890; Z87.81
[2025-01-30 08:35] LABS: Calcium 7.9 mg/dl (8.6-10.3); Magnesium 2.1 mg/dl (1.7-2.4); Potassium 4.4 mmol/L (3.5-5.1)
[2025-01-30 08:40] LABS: BUN Creatinine Ratio 18.2 (10-20); Creatinine Clr Calc Pharmacy 104.8 ml/min
[2025-01-30 08:44] LABS: INR 1.7 (0.9-1.1); Prothrombin Time 17.2 Seconds (9.0-12.0)
[2025-01-30 09:18] LABS: Hematocrit (blood only) 24.4 % (37.0-47.0); Hemoglobin 7.8 g/dl (12.0-16.0); Mean Corpuscular Hemoglobin 31.2 pg (25.0-34.0); Mean Corpuscular Volume 97.6 fL (80.0-100.0); Mean Platelet Volume 10.5 fL (9.4-12.4); Platelet Count 164 K/uL (130-400); RDW Coefficient of Variation 13.8 % (11.5-14.5); RDW Standard Deviation 48.3 fL (36.4-46.3); White Blood Count 3.84 K/ul (4.8-10.8)
--- NOTE | 2025-01-30 10:10 | Gastroenterology Progress Note ---
Date of Service January 30, 2025 Assessment & Plan (1) Anemia: Plan: 74 year old female with past medical history significant for multiple thyroid nodules, dyslipidemia, homozygous MTHFR mutation, obesity hypoventilation syndrome, obstructive sleep apnea noncompliant with CPAP, hypertension, morbid obesity, GERD, calculus of gallbladder without cholecystitis, urge incontinence, female stress incontinence, osteoporosis, history of pulmonary embolism, depression and others below admitted following a fall - s/p right humerus fracture repair w/ downtrending HGB and report of melena. She is awake, alert and oriented w/ stable vital signs. Unfortunately she just f inished eating a regular breakfast prior to our arrival. As hemodynamically stable will plan for EGD 01/30/25. - NPO for EGD today - Hold coumadin - Stop NSAIDs - Trend HGB - Monitor/document GI output - Transfuse PRN per primary service - IV PPI twice daily We appreciate assistance in the management of any serological abnormality and corrections to include: hemoglobin >7, INR <2, platelets >50,000, potassium levels >3.5 but <5.3, and sodium levels within 5 points of the reference range prior to endoscopic evaluation. T Admission and Anticipated Discharge Date Admission Date: January 23, 2025 Supervising Physician Co-Signing Physician Notes I saw and examined this patient with our nurse practitioner and agree with her assessment and plan. Stable no signs of significant overt bleeding. Will proceed with upper endoscopy today. Subjective NPO for EGD this AM. No further black stools reported. Coumadin held, INR 1.7 this AM. Review of Systems Review of Systems: All other findings negative except as noted in HPI. Physical Exam Constitutional: WD/WN, vitals as above Respiratory: normal respiratory effort Cardiovascular: Rate/Rhythm: regular rate Gastrointestinal (Abdomen): normal bowel sounds, soft, nontender, no hepatosplenomegaly Skin: no rashes, warm and dry Results & Data Results & Data Vital Signs (Past 12 Hours) Vital Signs Temp Pulse Resp BP Pulse Ox O2 Del Method 01/30/25 08:51 98.1 F 70 20 118/67 91 Room Air 01/30/25 06:26 94 Room Air Laboratory Results 01/30/25 01/30/25 01/29/25 Range/Units 08:50 07:37 17:43 WBC 3.84 L Cancelled RBC 2.50 L Cancelled Hgb 7.8 L Cancelled 7.8 L (12.0-16.0) g/dl Hct 24.4 L Cancelled 23.8 L (37.0-47.0) % MCV 97.6 Cancelled MCH 31.2 Cancelled MCHC 32.0 Cancelled RDW Std Deviation 48.3 H Cancelled RDW Coeff of Guido 13.8 Cancelled Plt Count 164 Cancelled MPV 10.5 Cancelled Absolute Nucleated RBC Cancelled Nucleated RBC % (auto) Cancelled Platelet Estimate Cancelled PT 17.2 H (9.0-12.0) Seconds INR 1.7 H (0.9-1.1) Sodium 137 (136-145) mmol/L Potassium 4.4 (3.5-5.1) mmol/L Chloride 105 (98-107) mmol/L Carbon Dioxide 27 (21-32) mmol/L Anion Gap 5 (3-11) BUN 12 (6-23) mg/dl Creatinine 0.66 (0.6-1.2) mg/dl Est Cr Clr Drug Dosing 104.8 ml/min eGFR 91.42 BUN/Creatinine Ratio 18.2 (10-20) Glucose 92 (70-99(Fasting)) mg/dl Calcium 7.9 L (8.6-10.3) mg/dl Magnesium 2.1 (1.7-2.4) mg/dl 01/29/25 Range/Units 12:43 WBC RBC Hgb 7.7 L (12.0-16.0) g/dl Hct 23.6 L (37.0-47.0) % MCV MCH MCHC RDW Std Deviation RDW Coeff of Guido Plt Count MPV Absolute Nucleated RBC Nucleated RBC % (auto) Platelet Estimate PT (9.0-12.0) Seconds INR (0.9-1.1) Sodium (136-145) mmol/L Potassium (3.5-5.1) mmol/L Chloride (98-107) mmol/L Carbon Dioxide (21-32) mmol/L Anion Gap (3-11) BUN (6-23) mg/dl Creatinine (0.6-1.2) mg/dl Est Cr Clr Drug Dosing ml/min eGFR BUN/Creatinine Ratio (10-20) Glucose (70-99(Fasting)) mg/dl Calcium (8.6-10.3) mg/dl Magnesium (1.7-2.4) mg/dl PG Care Time/CCT Total # of Minutes Spent Total Time Spent with Patient: Total time spent is greater than 50% in coordination of care (as documented) at patient's floor/unit and/or counseling patient: Coding Level of Care Code None Diagnoses Anemia, unspecified type D64.9 Anemia type: unspecified type (1) Anemia Anemia type: unspecified type Qualified Code(s): D64.9 - Anemia, unspecified
--- NOTE | 2025-01-30 13:57 | GI REPORT ---
[facility] Patient: BERNADETTE CASTELLANOS : 1950 Sex at : Female Age: 74 Years Procedure: Upper GI endoscopy Date: 01/30/2025 Attending Physician: Jose De Leon MD Referring MD: Barak Potter Indications: - Suspected upper gastrointestinal bleeding Medications: - Monitored Anesthesia Care Complications: - No immediate complications. Procedure: - Prior to the procedure, a History and Physical was performed, and patient medications and allergies were reviewed. The patient's tolerance of previous anesthesia was also reviewed. The risks and benefits of the procedure and the sedation options and risks were discussed with the patient. All questions were answered, and informed consent was obtained. [Anticoagulant Agents] [Days Prior to Procedure]. [ASA Grade]. After reviewing the risks and benefits, the patient was deemed in satisfactory condition to undergo the procedure. - The egd scope was introduced through the mouth and advanced to the second part of the duodenum. - The upper GI endoscopy was accomplished without difficulty. - The patient tolerated the procedure well. Findings: - The examined esophagus was normal. - Two non-bleeding cratered gastric ulcers with no stigmata of bleeding were found in the gastric antrum. The largest lesion was 12 mm in largest dimension. Biopsies were taken with a cold forceps from antrum and body for histology and Hpylori staining. - The examined duodenum was normal. Impression: - Normal esophagus. - Non-bleeding gastric ulcers with no stigmata of bleeding. Biopsied. - Normal examined duodenum. Recommendation: - Resume previous diet. - Patient has a contact number available for emergencies. The signs and symptoms of potential delayed complications were discussed with the patient. Return to normal activities tomorrow. Written discharge instructions were provided to the patient. Procedure Code(s): - 91461, Esophagogastroduodenoscopy, flexible, transoral; with biopsy, single or multiple Diagnosis Code(s): - K25.9, Gastric ulcer, unspecified as acute or chronic, without hemorrhage or perforation CPT(R) - 2023 copyright [employer]. All Rights Reserved. The CPT codes, CCI edits and ICD codes generated are intended as suggestions and were generated based on input data. These codes are preliminary and upon electrical experimental mechanic review may be revised to meet current compliance and payer requirements. The provider is responsible for the final determination of appropriate codes, and modifiers. Jose De Leon MD This document has been electronically signed. Note Initiated:01/30/2025 Note Completed:01/30/2025 1:56 PM \\[email or web address].org\Central\InterfaceData\Data\Provation\Results\LIVE\[id number]
--- NOTE | 2025-01-30 14:00 | Anesthesiology Progress Note ---
Date of Service January 30, 2025 Anesthesia Post Procedure Vital Signs Vital Signs: Temp Pulse Pulse Resp BP Pulse Ox O2 Del Method 01/30/25 13:01 36.5 C 79 16 143/79 H 91 Room Air 01/30/25 11:44 36.8 C 80 20 156/67 H 93 Room Air 01/30/25 10:15 Room Air 01/30/25 08:51 36.7 C 70 20 118/67 91 Room Air 01/30/25 06:26 94 Room Air 01/29/25 20:00 Nasal Cannula 01/29/25 19:26 36.8 C 73 127/77 97 Nasal Cannula 01/29/25 15:11 36.7 C 71 20 124/80 97 Room Air O2 Flow Rate 01/30/25 13:01 01/30/25 11:44 01/30/25 10:15 01/30/25 08:51 01/30/25 06:26 01/29/25 20:00 2 01/29/25 19:26 2 01/29/25 15:11 Pain Intensity Right Hand: Pain Intensity: 6 Right Arm: Pain Intensity: 3 Transfer of Care Handoff Completed per policy Notes Mental Status: alert / awake / arousable and participated in evaluation Patient Amnestic to Procedure: Yes Nausea / Vomiting: adequately controlled Pain: adequately controlled Airway Patency, RR, SpO2: stable & adequate BP & HR: stable & adequate Hydration State: stable & adequate Anesthetic Complications: no major complications apparent and Pt Satisfied with anesthetic care
[2025-01-30] MEDS: LIDOCAINE 2% 2 ML VIAL/AMP(20MG/ML) INFIL ONE (14:47)
[2025-01-30] MEDS: PROPOFOL IV EMULSION 10 MG/ML 20 ML VIAL IV ONE (14:47)
--- NOTE | 2025-01-30 15:16 | Anesthesiology Progress Note ---
Date of Service January 30, 2025 Anesthesia Post Procedure Vital Signs Vital Signs: Temp Pulse Pulse Resp BP Pulse Ox O2 Del Method 01/30/25 14:25 72 16 127/74 91 Room Air 01/30/25 14:10 72 16 125/79 92 Room Air 01/30/25 13:55 117 H 18 146/105 H 96 Room Air 01/30/25 13:01 36.5 C 79 16 143/79 H 91 Room Air 01/30/25 11:44 36.8 C 80 20 156/67 H 93 Room Air 01/30/25 10:15 Room Air 01/30/25 08:51 36.7 C 70 20 118/67 91 Room Air 01/30/25 06:26 94 Room Air 01/29/25 20:00 Nasal Cannula 01/29/25 19:26 36.8 C 73 127/77 97 Nasal Cannula O2 Flow Rate 01/30/25 14:25 01/30/25 14:10 01/30/25 13:55 01/30/25 13:01 01/30/25 11:44 01/30/25 10:15 01/30/25 08:51 01/30/25 06:26 01/29/25 20:00 2 01/29/25 19:26 2 Pain Intensity Right Hand: Pain Intensity: 6 Right Arm: Pain Intensity: 3 Transfer of Care Handoff Completed per policy Notes Mental Status: alert / awake / arousable Patient Amnestic to Procedure: Yes Nausea / Vomiting: adequately controlled Pain: adequately controlled Airway Patency, RR, SpO2: stable & adequate BP & HR: stable & adequate Hydration State: stable & adequate Anesthetic Complications: no major complications apparent and Pt Satisfied with anesthetic care
--- NOTE | 2025-01-30 16:24 | Communication Note ---
Date of Service: January 30, 2025 EGD report reviewed. Findings consisted of 2 nonbleeding gastric ulcers with no stigmata of bleeding (biopsied). ? NSAID-induced. Case discussed via TT with GI DONG. Recommends waiting until Sunday, 02/01, to restart warfarin. Follow gastric biopsy.
[2025-01-30 20:13] LABS: Hematocrit (blood only) 24.7 % (37.0-47.0); Hemoglobin 8.1 g/dl (12.0-16.0)
[2025-01-31 06:55] LABS: Hematocrit (blood only) 25.8 % (37.0-47.0); Hemoglobin 8.4 g/dl (12.0-16.0); Mean Corpuscular Hemoglobin 31.2 pg (25.0-34.0); Mean Corpuscular Hgb Conc 32.6 g/dL (32.0-36.0); Mean Corpuscular Volume 95.9 fL (80.0-100.0); Mean Platelet Volume 9.8 fL (9.4-12.4); Platelet Count 167 K/uL (130-400); RDW Coefficient of Variation 13.7 % (11.5-14.5); RDW Standard Deviation 46.8 fL (36.4-46.3); Red Blood Count 2.69 M/uL (4.20-5.40); White Blood Count 3.71 K/ul (4.8-10.8)
[2025-01-31 07:14] LABS: BUN Creatinine Ratio 18.8 (10-20); Creatinine Clr Calc Pharmacy 108.1 ml/min; Magnesium 2.1 mg/dl (1.7-2.4)
[2025-01-31 07:32] LABS: INR 1.5 (0.9-1.1)
--- NOTE | 2025-01-31 07:42 | Gastroenterology Progress Note ---
Date of Service January 31, 2025 Assessment & Plan (1) Gastric ulcer: Plan: Gastric ulcers noted on endoscopy yesterday. No stigmata for increased risk for recurrent bleeding. Continue PPI twice daily. Advance diet as tolerated. Will need repeat endoscopy in 6 to 8 weeks to assess healing. Biopsies pending for H. pylori. Admission and Anticipated Discharge Date Admission Date: January 23, 2025 Subjective Resting comfortably denies abdominal pain shortness of breath or chest pain Physical Exam Physical Exam: No acute distress Respiratory rate regular Cardiac rhythm regular Abdomen soft nontender Results & Data Results & Data Vital Signs (Past 12 Hours) Vital Signs Temp Pulse Resp BP Pulse Ox O2 Del Method O2 Flow Rate 01/31/25 06:58 36.7 C 76 16 123/79 93 Room Air 01/30/25 21:35 Nasal Cannula 2 PG Care Time/CCT Total # of Minutes Spent Total Time Spent with Patient: Total time spent is greater than 50% in coordination of care (as documented) at patient's floor/unit and/or counseling patient: Coding Level of Care Code 44808 SUB INP/OBS CARE 2/35MIN Diagnoses Gastric ulcer K25.9
--- NOTE | 2025-01-31 08:29 | Orthopedic Progress Note ---
Date of Service January 31, 2025 Assessment & Plan (1) S/P ORIF (open reduction internal fixation) fracture: Patient just awaiting discharge to rehab. POD 7 from ORIF of right proximal humerus. pain controlled. Continue sling, PT/OT. Follow up with Dr Bonner in 1-2 weeks. Subjective .74 year old POD 7 from ORIF right proximal humerus fracture. Not complaining of much shoulder/arm pain. Did have EGD yesterday showing gastric ulcers. Review of Systems All systems reviewed & are unremarkable except as noted in HPI & below. Physical Exam . alert, NAD Right arm: sling in place. Incision well approximated. Drew intact. No drainage. +ecchymosis. Able to move thumb, fingers and wrist appropriately. NVI Results & Data Results & Data Laboratory Results . Diagnostic Findings . PG Care Time/CCT Total # of Minutes Spent Total Time Spent with Patient: Total time spent is greater than 50% in coordination of care (as documented) at patient's floor/unit and/or counseling patient: Coding Level of Care Code 61850 Post Operative Follow-Up Diagnoses S/P ORIF (open reduction internal fixation) fracture Z98.890; Z87.81
--- NOTE | 2025-01-31 09:58 | Hospitalist Progress Note ---
Date of Service January 31, 2025 Assessment & Plan (1) Fall: (2) Humerus fracture: Plan: Jenniffer Dumont is a 74y/o F with PMHx significant for multiple thyroid nodules, HLD, homozygous MTHFR mutation and history of PE anticoagulated on warfarin, ANDRES with CPAP noncompliance, obesity hypoventilation syndrome, HTN, GERD, urge incontinence and depression who is admitted under our service with an acute right proximal humeral shaft fracture in the setting of age-related osteoporosis after sustaining a mechanical fall. S/P right humerus ORIF performed by Dr. Bonner on 01/24. PT/OT recommending rehab placement. Ortho recommendations include NWB RUE, maintain sling at all times (may be removed briefly for hygiene purposes and ROM exercises). Continue PRN pain control. Needs an ortho follow-up appointment in 2-3 weeks. (3) Anemia: (4) Dark stools: Plan: #Gastric ulcer Gradual downtrend in Hgb postoperatively was noted. 01/27/25 CT Abd/pelvis was negative for any evidence of internal bleeding. Iron deficiency was noted on routine anemia panel and was Started on oral iron supplementation 01/28 had noted to have an episode of dark, black stools GI was consulted 01/30/25 EGD Findings consisted of 2 nonbleeding gastric ulcers with no stigmata of bleeding Biopsy is pending Continue PPI BID Warfarin has been on hold Previously GI had Recommends waiting until Sunday, 02/01, to restart warfarin. GI recommends advance diet as tolerated. Patient Will need repeat endoscopy in 6 to 8 weeks to assess healing. Monitor H&H Will plan to start anticoagulation with Lovenox and warfarin tomorrow, 02/01 (5) Subtherapeutic international normalized ratio (INR): (6) History of pulmonary embolism: Plan: History of homozygous MTHFR mutation. Last PE about 7 years ago per patients recollection. Received vitamin K preoperatively. Warfarin remains on hold as per above. Follow repeat PT/INR. #Episode Hypoxia 01/26: Hypoxic overnight with increased supplemental O2 requirement. Given PE/DVT history and recent surgery, chest CTA was obtained which was NEGATIVE for PE. Incidentally noted minimal pericardial effusion therefore TTE was obtained. TTE with NO evidence of pericardial effusion; LVEF = >70%, moderate concentric LVH, normal LV wall motion. No further hypoxia and maintains on room air (7) Rib pain on right side: Plan: Right-sided rib pain under the right breast was previously reported and right- sided rib XR imaging obtained given the nature of her fall which was NEGATIVE for any evidence of fractures. Reports improvement of pain Continue Lidoderm patch application which has been helping well. (8) Hypocalcemia: (9) Hypovitaminosis D: Plan: Serum calcium 8.3 in the ED. S/p 1g IV calcium gluconate in the ED. Ionized calcium 1.10 and 25-hydroxy vitamin D 17.4; weekly ergocalciferol ordered on 01/24 (may need to increase dose). Will need outpatient vitamin D levels in 6 weeks. Serum calcium 8.0 today - continue to monitor. PTH level 112.1 - likely contributing factor to hypocalcemia in the setting of decreased oral intake. Recommend PTH recheck in 6 weeks following discharge. (10) HTN (hypertension): (11) Orthostasis: Plan: Was orthostatic postoperatively and her home Lasix, lisinopril and amlodipine were held Now improved SBPs in 140's today. Will restart amlodipine, lisinopril (12) Edema of both lower extremities: Plan: Chronic BLE lymphedema. BLE venous Doppler US obtained which was NEGATIVE. (13) Obstructive sleep apnea: (14) Morbid obesity: Plan: Noncompliance with CPAP therapy. May utilize supplemental O2 HS while she is sleeping #HLD Continue home atorvastatin #Depression Continue home escitalopram DVT Prophylaxis: SCDs/TEDs. Will plan to restart warfarin and SQ Lovenox tomorrow Code Status: FULL CODE PCP: Hayden Lyman DO Disposition: Will need SNF placement on discharge - appreciate CM assistance. Currently monitoring pt after EGD and monitor upon restarting anticoagulation Patient seen in collaboration with Dr. Potter. Please see addendum. I spent a total of 46 minutes coordinating, documenting, and providing care for this patient excluding time spent in the performance of separately billed services or time spent by another provider/QHP. This included personally reviewing all current laboratories and imaging studies, medical reconciliation, outpatient chart review and discussion with specialists. Admission and Anticipated Discharge Date Admission Date: January 23, 2025 Supervising Physician Co-Signing Physician Notes Attending Addendum: Case reviewed with the advanced practitioner. I have reviewed the advanced practitioner's documentation on the date of service referenced in note, and I agree with, and take responsibility for the plan of care. please refer to her notes for full details patient seen and examined, records reviewed by myself as well diagnoses and plan of care as per advanced practitioner's notes I spent a total of 25 minutes coordinating, documenting, and providing care for this patient, excluding time spent in the performance of separately billed services or time spent by another provider/QHP. Barak Potter MD Subjective Patient seen and examined. Sitting up in bedside chair. Reports right shoulder pain is controlled. Reports small BM this morning that was black in coloration. She is tolerating clear liquid diet. Is requesting advancing diet as feeling hungry. Denies nausea, vomiting or abdominal pain. Denies urinary symptoms. Denies fever/chills, JETER, dizziness, CP, SOB, cough, rhinorrhea, abdominal pain, paresthesias, increased extremity edema, rashes. Review of Systems Review of Systems: All systems reviewed & are unremarkable except as noted in HPI & below Physical Exam Physical Exam: General: no distress, obese femal Head: normocephalic, atraumatic Eyes: conjunctiva non-injected, anicteric ENT: normal inspection external ears, nose, mucous membranes moist Neck: supple, trachea midline Lungs: clear, no respiratory distress, no wheezing/rhonchi/rales CV: RRR, no murmur, no pretibial edema Abd: normal BS, soft, non-tender Ext: RUE: +sling in place, +darleen in surgical incision to right anterior shoulder and proximal RUE without noted erythema or drainage. Bucket Chucker strength strong and equal bilaterally. no cyanosis, no calf tenderness Neuro: A&O x 3, no focal deficits noted, normal affect Skin: warm, dry Results & Data Results & Data Vital Signs (Past 12 Hours) Vital Signs Temp Pulse Resp BP Pulse Ox O2 Del Method 01/31/25 06:58 36.7 C 76 16 123/79 93 Room Air Laboratory Results Short CBC 01/30/25 01/31/25 Range/Units 19:57 06:40 WBC 3.71 L (4.8-10.8) K/ul Hgb 8.1 L 8.4 L (12.0-16.0) g/dl Hct 24.7 L 25.8 L (37.0-47.0) % Plt Count 167 (130-400) K/uL BMP 01/31/25 06:40 Sodium 137 Potassium 4.0 Chloride 103 Carbon Dioxide 32 BUN 12 Creatinine 0.64 Glucose 97 Calcium 8.0 L Diagnostic Findings Humerus X-Ray 01/23/25 16:53 EXAM: XR humerus RT 2V CLINICAL HISTORY: Upper arm trauma TECHNIQUE: X-ray images of the right humerus were obtained in anteroposterior (AP) and lateral projections. COMPARISON: No prior studies available for comparison. FINDINGS: Osteopenia Communuted displaced fracture of the proximal humeral shaft There is cortical stepping seen at the surgical neck of the humerus A radiolucent line is seen through the scapular blade may suggests a skin fold. CT study is suggested if wrranted clinically Soft Tissues: Moderate soft tissue edema around the fracture site. Additional Findings: Osteoarthritic changes of the glenohumeral joint. IMPRESSION: Comminuted displaced fracture of the proximal humeral shaft with asscoiated soft tissue swelling Fracture of the surgical neck of the humerus Disclaimer: A subtle bone abnormality or fracture may not be readily apparent on X-rays, thus clinical correlation and further imaging, including follow-up CT, MRI, or follow-up X-rays, are advised as needed. Electronically signed by Duane Thompson 01-23-2025 6:44 PM Shoulder X-Ray 01/23/25 16:53 EXAM: XR shoulder RT min 2V routine CLINICAL HISTORY: Shoulder trauma, no prior imaging TECHNIQUE: X-ray images of the right shoulder were obtained in anteroposterior (AP) and Y-view projections. COMPARISON: No prior studies available for comparison. FINDINGS: Osteopenia. Comminuted displaced fracture of the proximal humeral shaft. There is a cortical stepping/radiolucent line seen at the surgical neck of the humerus. A radiolucent line is seen through the scapular blade may suggests a skin fold. CT study is suggested if warranted clinically. No evidence of shoulder dislocation Soft Tissues: Moderate soft tissue edema around fracture site. Additional Findings: Osteoarthritic changes of the shoulder joint. IMPRESSION: 1. Comminuted displaced fracture of the proximal humeral shaft. 2. Fracture of the surgical neck of the humerus. 3. Moderate soft tissue swelling around the fracture site. 4. No shoulder dislocation. Disclaimer: A subtle bone abnormality or fracture may not be readily apparent on X-rays, thus clinical correlation and further imaging including follow-up CT, MRI, or follow-up X-rays are advised as needed. Electronically signed by Duane Thompson 01-23-2025 6:49 PM Chest X-Ray 01/23/25 21:14 Exam(s): XR CXR 1 VIEW EXAM: XR Chest, 1 View CLINICAL HISTORY: Preop TECHNIQUE: Frontal view of the chest. COMPARISON: Chest radiograph 10/06/2022 FINDINGS: Lungs: Interstitial prominence could represent atelectasis, pulmonary edema or atypical infection. Pleural space: Unremarkable. No pneumothorax. Heart: Cardiomegaly. Mediastinum: Unremarkable. Normal mediastinal contour. Bones/joints: There are degenerative changes of the spine. No acute fracture. IMPRESSION: 1. Interstitial prominence could represent atelectasis, pulmonary edema or atypical infection. 2. Cardiomegaly. Electronically signed by: Veronica Leon MD 01/23/25 23:42 PM Venous Doppler Study 01/23/25 22:23 Exam(s): US VENOUS BILATERAL LOWER EXTREMITIES EXAM: US Duplex Bilateral Lower Extremities Veins CLINICAL HISTORY: Edema TECHNIQUE: Real-time duplex ultrasound scan of the bilateral lower extremity veins integrating B-mode two-dimensional vascular structure, Doppler spectral analysis, color flow Doppler imaging and compression. COMPARISON: No relevant prior studies available. FINDINGS: Right deep veins: Unremarkable. No Deep vein thrombosis in the right common femoral, femoral, proximal deep femoral or popliteal veins. The veins demonstrate normal color flow, are normally compressible, with normal phasic flow and/or augmentation response. Right superficial veins: Unremarkable. No thrombus in the visualized right great saphenous vein. Left deep veins: Unremarkable. No Deep vein thrombosis in the left common femoral, femoral, proximal deep femoral or popliteal veins. The veins demonstrate normal color flow, are normally compressible, with normal phasic flow and/or augmentation response. Left superficial veins: Unremarkable. No thrombus in the visualized left great saphenous vein. Soft tissues: Nonspecific subcutaneous edema bilaterally. No popliteal cyst. IMPRESSION: 1. Nonspecific subcutaneous edema bilaterally. 2. No deep vein thrombosis of either lower extremity. Electronically signed by: Veronica Leon MD 01/24/25 01:15 AM Humerus X-Ray 01/24/25 00:00 FL humerus RT 2V CLINICAL HISTORY: RIGHT PROXIMAL HUMERUS F COMPARISON STUDY: Radiographs 01/24/2020 FLUOROSCOPY TIME: 30 seconds FLUOROSCOPY IMAGES: 4 EXPOSURE DOSE: 3.5 mGy FINDINGS: Status post placement of plate and screw fusion fixating the acute proximal to mid humeral fracture deformity, now with satisfactory alignment. Expected postoperative soft tissue swelling with deep tissue air. No unexpected opaque foreign bodies identified. IMPRESSION: Fluoroscopic assistance as above. ACT 112: Negative or not required by law. Electronically signed by: Robert Vaughn M.D. 01/26/2025 6:51 AM Ribs X-Ray 01/25/25 10:17 EXAM: Radiographs of the Right Ribs 2 Views INDICATION: Postoperative pain TECHNIQUE: Frontal and oblique views of the right ribs. COMPARISON: No relevant prior studies available. FINDINGS: Lungs and pleural spaces: No consolidation or pulmonary edema. No pleural effusion or pneumothorax. Bones/joints: No fracture, erosion or dislocation. Soft tissues: Skin darleen noted along the right humerus. There is a intact well-seated lateral humeral duong with multiple screws. There is a cortical lucency medial cortex mid humeral shaft. Right ribs intact. Degenerative changes noted in the spine. IMPRESSION: 1. Intact right ribs. 2. Postoperative changes right humerus with well-seated intact hardware. ACT 112: N/A Electronically signed by Melba Cho 01-25-2025 11:27 AM Chest CTA 01/26/25 14:35 EXAM: CT angio chest PE protocol CLINICAL HISTORY: PE. TECHNIQUE: Contiguous 3.[address] angiographic images of the chest were acquired with the administration of intravenous contrast. Coronal and sagittal reconstructions were obtained. One of these 3D techniques was utilized: Maximum Intensity Pixel (MIP), 3D Reconstructed Images, Volume Rendered Images, Surface Shaded Rendering. One of the following dose reduction techniques were utilized for this exam: Automated exposure control, adjustment of the mA and/or kV according to patient size, and use of iterative reconstruction. COMPARISON: CR 01/23/2025. CT angio 11/18/2020. FINDINGS: Aorta: Aortic atherosclerotic changes in the form of mild wall thickening, calcifications, and tortuosity. The thoracic aorta is normal in caliber. No evidence of aneurysm, dissection. Aortic arch and descending thoracic aorta are unremarkable. Pulmonary Arteries: Mild dilatation of the central pulmonary arteries. Pulmonary arteries are normal in opacification. No evidence of pulmonary embolism. No stenosis or filling defects. Superior Vena Cava (SVC) and Inferior Vena Cava (IVC): Normal opacification and caliber. No evidence of thrombus or obstruction. Coronary Arteries: Coronary arteries are well-opacified. No significant stenosis or atherosclerotic changes. Mediastinum: Anterior mediastinal small mass measures 2.7x2 cm. Stable. Enlarged left thyroid lobe, with hypodense nodules. Stable. Please correlate with thyroid ultrasound. Heart: Moderate cardiomegaly. Stable. Minimal pericardial effusion. Lungs: Groundglass opacities within the lungs favor atelectasis. Few small lung emphysematous bullae. No evidence of consolidation, nodules, or masses. No pleural effusion or thickening. Bones: No fractures or lytic/sclerotic lesions of the visualized bony structures. Normal alignment and bone density. Thoracic and upper lumbar vertebral degenerative changes. Soft Tissues: Normal appearance of the visualized soft tissues. No abnormal masses or fluid collections. A small hiatal hernia is present. Upper abdomen: Mild perinephric stranding, likely chronic cholecystitis. Small splenule. IMPRESSION: 1. No pulmonary emboli identified. 2. Mild dilatation of the central pulmonary arteries raises the possibility of pulmonary arterial hypertension. 3. Moderate cardiomegaly. 4. Compared to CR 01/23/2025. CT angio 11/18/2020. Stable findings. Electronically signed by Duane Thompson 01-26-2025 5:10 PM Abdomen/Pelvis CT 01/27/25 07:21 CT SCAN OF THE ABDOMEN AND PELVIS WITH IV CONTRAST CLINICAL HISTORY: Fall. Anemia. COMPARISON STUDY: Right upper quadrant ultrasound February 15, 2012. TECHNIQUE: Following the IV administration of 94 cc of Optiray 320, CT scan of the abdomen and pelvis is performed from the lung bases to the proximal femora. Images are reviewed in the axial, sagittal, and coronal planes. IV contrast was administered without complication. A dose lowering technique was utilized adhering to the principles of ALARA. CT DOSE: 1493.32 mGy.cm FINDINGS: Lung bases: The heart is enlarged. There is no pericardial effusion. The lung bases are clear. There is a small hiatal hernia. Liver: The liver morphology is normal and there are no hepatic lesions. There is no intrahepatic biliary ductal dilatation. The hepatic veins and portal veins are patent. No evidence for traumatic injury. Gallbladder: There are gallstones within the gallbladder. Spleen: Normal in size and attenuation. No evidence for traumatic injury. Pancreas: There are no pancreatic lesions. No pancreatic ductal dilatation is present. Adrenal glands: Unremarkable. Kidneys: There are no renal lesions. There is no hydronephrosis. The kidneys enhance symmetrically. There are bilateral renal parapelvic cysts. Excreted contrast from recent contrast-enhanced CT is incidentally noted. Abdominal vasculature: The caliber of the abdominal aorta is normal. Major vasculature is patent. Bowel: The caliber and wall thickness of small and large bowel are normal. The appendix is Peritoneum: There is no intraperitoneal free air or abdominal ascites. Lymphadenopathy: None. Musculoskeletal: No lytic or blastic lesions are seen. No acute fractures are identified. There is moderate body wall edema. IMPRESSION: 1. No acute traumatic findings within the abdomen or pelvis. 2. No retroperitoneal hematoma. 3. Mild body wall edema. 4. Cholelithiasis. ACT 112: Negative or not required by law. Electronically signed by: Wilmer Elizondo M.D. 01/27/2025 8:53 AM (1) Fall Encounter type: initial encounter Qualified Code(s): W19.XXXA - Unspecified fall, initial encounter (2) Humerus fracture Encounter type: initial encounter Fracture alignment: displaced Fracture morphology: other fracture Fracture type: closed Humerus Location: proximal Laterality: right Qualified Code(s): S42.291A - Other displaced fracture of upper end of right humerus, initial encounter for closed fracture (3) Anemia Anemia type: unspecified type Qualified Code(s): D64.9 - Anemia, unspecified (10) HTN (hypertension) Hypertension type: unspecified Qualified Code(s): I10 - Essential (primary) hypertension
[2025-02-01 07:10] LABS: Hematocrit (blood only) 25.4 % (37.0-47.0); Hemoglobin 8.3 g/dl (12.0-16.0); Mean Corpuscular Hemoglobin 31.7 pg (25.0-34.0); Mean Corpuscular Hgb Conc 32.7 g/dL (32.0-36.0); Mean Corpuscular Volume 96.9 fL (80.0-100.0); Mean Platelet Volume 10.1 fL (9.4-12.4); Platelet Count 179 K/uL (130-400); RDW Standard Deviation 48.2 fL (36.4-46.3); Red Blood Count 2.62 M/uL (4.20-5.40); White Blood Count 4.19 K/ul (4.8-10.8)
[2025-02-01 07:34] LABS: INR 1.4 (0.9-1.1); Prothrombin Time 14.6 Seconds (9.0-12.0)
--- NOTE | 2025-02-01 07:40 | Hospitalist Progress Note ---
Date of Service February 01, 2025 Assessment & Plan (1) Fall: (2) Humerus fracture: Plan: Jenniffer Dumont is a 74y/o F with PMHx significant for multiple thyroid nodules, HLD, homozygous MTHFR mutation and history of PE anticoagulated on warfarin, ANDRES with CPAP noncompliance, obesity hypoventilation syndrome, HTN, GERD, urge incontinence and depression who is admitted under our service with an acute right proximal humeral shaft fracture in the setting of age-related osteoporosis after sustaining a mechanical fall. S/P right humerus ORIF performed by Dr. Bonner on 01/24/25. PT/OT recommending rehab placement. Ortho recommendations include NWB RUE, maintain sling at all times (may be removed briefly for hygiene purposes and ROM exercises). Continue PRN pain control. Needs an ortho follow-up appointment in 2-3 weeks. (3) Anemia: (4) Dark stools: Plan: #Gastric ulcer Gradual downtrend in Hgb postoperatively was noted. 01/27/25 CT Abd/pelvis was negative for any evidence of internal bleeding. Iron deficiency was noted on routine anemia panel and was Started on oral iron supplementation 01/28 had noted to have an episode of dark, black stools GI was consulted 01/30/25 EGD Findings consisted of 2 nonbleeding gastric ulcers with no stigmata of bleeding Biopsy is pending Continue PPI BID Diet has been advanced and tolerating diet Warfarin had been on hold, and is being resumed today per GI recommendations GI recommends advance diet as tolerated. Patient Will need repeat endoscopy in 6 to 8 weeks to assess healing. Monitor H&H (5) Rib pain on right side: Plan: Right-sided rib pain under the right breast was previously reported and right- sided rib XR imaging obtained given the nature of her fall which was NEGATIVE for any evidence of fractures. Reports improvement of pain Continue Lidoderm patch application which has been helping well. (6) Hypocalcemia: (7) Hypovitaminosis D: Plan: Serum calcium 8.3 in the ED. S/p 1g IV calcium gluconate in the ED. Ionized calcium 1.10 and 25-hydroxy vitamin D 17.4; weekly ergocalciferol ordered on 01/24 (may need to increase dose). Will need outpatient vitamin D levels in 6 weeks. Serum calcium 8.0 today - continue to monitor. PTH level 112.1 - likely contributing factor to hypocalcemia in the setting of decreased oral intake. Recommend PTH recheck in 6 weeks following discharge. (8) HTN (hypertension): (9) Orthostasis: Plan: Was orthostatic postoperatively and her home Lasix, lisinopril and amlodipine were held Since improved and home lisinopril, amlodipine restarted yesterday Resume home lasix (10) Edema of both lower extremities: Plan: Chronic BLE lymphedema. BLE venous Doppler US obtained which was NEGATIVE. (11) Obstructive sleep apnea: (12) Morbid obesity: Plan: Noncompliance with CPAP therapy. May utilize supplemental O2 HS while she is sleeping #HLD Continue home atorvastatin #Depression Continue home escitalopram DVT Prophylaxis: Restart warfarin and SQ Lovenox today Code Status: FULL CODE PCP: Hayden Lyman DO Disposition: Will need SNF placement on discharge - appreciate CM assistance. Currently monitoring as restarting anticoagulation today Patient seen in collaboration with Dr. Potter. Please see addendum. I spent a total of 45 minutes coordinating, documenting, and providing care for this patient excluding time spent in the performance of separately billed services or time spent by another provider/QHP. This included personally reviewing all current laboratories and imaging studies, medical reconciliation, outpatient chart review and discussion with specialists. Admission and Anticipated Discharge Date Admission Date: January 23, 2025 Supervising Physician Co-Signing Physician Notes Attending Addendum: Case reviewed with the advanced practitioner. I have reviewed the advanced practitioner's documentation on the date of service referenced in note, and I agree with, and take responsibility for the plan of care. please refer to her notes for full details patient seen and examined, records reviewed by myself as well diagnoses and plan of care as per advanced practitioner's notes I spent a total of 20 minutes coordinating, documenting, and providing care for this patient, excluding time spent in the performance of separately billed services or time spent by another provider/QHP. Barak Potter MD Subjective Patient seen and examined. Sitting up in bedside chair. Reports right shoulder pain is controlled. Reports stool still black in color. Tolerating diet. Denies nausea, vomiting or abdominal pain. Denies urinary symptoms. Denies fever/chills, JETER, dizziness, CP, SOB, cough, rhinorrhea, abdominal pain, paresthesias, increased extremity edema, rashes. Review of Systems Review of Systems: All systems reviewed & are unremarkable except as noted in HPI & below Physical Exam Physical Exam: General: no distress, obese female Head: normocephalic, atraumatic Eyes: conjunctiva non-injected, anicteric ENT: normal inspection external ears, nose, mucous membranes moist Neck: supple, trachea midline Lungs: clear, no respiratory distress, no wheezing/rhonchi/rales CV: RRR, no murmur, no pretibial edema Abd: normal BS, soft, non-tender Ext: RUE: +sling in place, +darleen in surgical incision to right anterior shoulder and proximal RUE without noted erythema or drainage, +ecchymosis and edema. Wardrobe Technician strength strong and equal bilaterally. no cyanosis, no calf tenderness Neuro: A&O x 3, no focal deficits noted, normal affect. Very conversant today. Skin: warm, dry Results & Data Results & Data Vital Signs (Past 12 Hours) Vital Signs Temp Pulse Resp BP Pulse Ox O2 Del Method 02/01/25 07:09 36.6 C 69 17 145/87 H 98 Room Air 01/31/25 20:41 36.4 C L 82 18 129/82 93 Room Air 01/31/25 20:00 Room Air Laboratory Results Short CBC 02/01/25 Range/Units 06:24 WBC 4.19 L (4.8-10.8) K/ul Hgb 8.3 L (12.0-16.0) g/dl Hct 25.4 L (37.0-47.0) % Plt Count 179 (130-400) K/uL BMP 02/01/25 06:24 Sodium 139 Potassium 4.0 Chloride 105 Carbon Dioxide 33 H BUN 15 Creatinine 0.69 Glucose 98 Calcium 7.8 L (1) Fall Encounter type: initial encounter Qualified Code(s): W19.XXXA - Unspecified fall, initial encounter (2) Humerus fracture Encounter type: initial encounter Fracture alignment: displaced Fracture morphology: other fracture Fracture type: closed Humerus Location: proximal Laterality: right Qualified Code(s): S42.291A - Other displaced fracture of upper end of right humerus, initial encounter for closed fracture (3) Anemia Anemia type: unspecified type Qualified Code(s): D64.9 - Anemia, unspecified (8) HTN (hypertension) Hypertension type: unspecified Qualified Code(s): I10 - Essential (primary) hypertension
[2025-02-01 07:41] LABS: BUN Creatinine Ratio 21.7 (10-20); Calcium 7.8 mg/dl (8.6-10.3); Creatinine Clr Calc Pharmacy 100.3 ml/min
[2025-02-01] MEDS: ENOXAPARIN INJ 40 MG/0.4 ML SYR SQ SCH (08:32)
[2025-02-01] MEDS: WARFARIN SOD 5 MG TAB PO SCH (17:17)
[2025-02-02 07:56] LABS: Hematocrit (blood only) 25.8 % (37.0-47.0); Hemoglobin 8.4 g/dl (12.0-16.0); Mean Corpuscular Hemoglobin 31.5 pg (25.0-34.0); Mean Corpuscular Hgb Conc 32.6 g/dL (32.0-36.0); Mean Corpuscular Volume 96.6 fL (80.0-100.0); Mean Platelet Volume 10.1 fL (9.4-12.4); Platelet Count 208 K/uL (130-400); RDW Standard Deviation 48.5 fL (36.4-46.3); Red Blood Count 2.67 M/uL (4.20-5.40); White Blood Count 3.86 K/ul (4.8-10.8)
[2025-02-02 08:12] LABS: BUN Creatinine Ratio 18.8 (10-20); Calcium 8.2 mg/dl (8.6-10.3); Creatinine Clr Calc Pharmacy 100.3 ml/min
[2025-02-02 08:21] LABS: INR 1.2 (0.9-1.1); Prothrombin Time 12.6 Seconds (9.0-12.0)
--- NOTE | 2025-02-02 14:48 | Hospitalist Progress Note ---
Date of Service February 02, 2025 Assessment & Plan (1) Fall: (2) Humerus fracture: Plan: Jenniffer Dumont is a 74y/o F with PMHx significant for multiple thyroid nodules, HLD, homozygous MTHFR mutation and history of PE anticoagulated on warfarin, ANDRES with CPAP noncompliance, obesity hypoventilation syndrome, HTN, GERD, urge incontinence and depression who is admitted under our service with an acute right proximal humeral shaft fracture in the setting of age-related osteoporosis after sustaining a mechanical fall. S/p right humerus ORIF performed by Dr. Bonner on 01/24. PT/OT recommending rehab placement. Continue PRN pain control. Needs an ortho follow-up appointment in 2-3 weeks. Ortho recommendations include NWB RUE, maintain sling at all times (may be removed briefly for hygiene purposes and ROM exercises). (3) Anemia: (4) Dark stools: (5) Gastric ulcer: Plan: Gradual downtrend in Hgb postoperatively. Surgical blood loss likely contributing. 01/27 CTAP: Negative for any evidence of internal bleeding. Iron deficiency noted on routine anemia panel. Started on oral iron supplementation. 01/28: Noted to have an episode of dark, black stools in the late afternoon. Unsure if due to iron supplementation. GI onboard. FOBT negative on 01/30. Underwent EGD on 01/30. EGD Findings: 2 nonbleeding gastric ulcers with no stigmata of bleeding. Gastric biopsy personally reviewed. Significant gastric inflammation. No evidence of atrophy or intestinal metaplasia. Negative for H. Pylori. Continue IV PPI BID while admitted with transition to po PPI BID on discharge. Will need repeat endoscopy in 6 to 8 weeks to assess healing. Hgb low but stabilized at 8.4 today (was 7.6 at its lowest on 01/29). Still having episodes of dark stools - suspect likely 2/2 iron supplementation. Warfarin resumed on 02/01 per recommendation of GI. INR subtherapeutic at 1.2 today; will give 7.5mg warfarin today. Continue SQ Lovenox. Continue daily CBC monitoring. (6) History of pulmonary embolism: Plan: History of homozygous MTHFR mutation. Last PE about 7 years ago per patients recollection. 01/26: Hypoxic overnight with increased supplemental O2 requirement. Given PE/DVT history and recent surgery, chest CTA was obtained which was NEGATIVE for PE. Incidentally noted minimal pericardial effusion therefore TTE was obtained. TTE with NO evidence of pericardial effusion; LVEF = >70%, moderate concentric LVH, normal LV wall motion. Warfarin resumed as per above. Follow repeat PT/INR. (7) Rib pain on right side: Plan: Right-sided rib pain under the right breast reported. Right-sided rib XR imaging obtained given the nature of her fall which was NEGATIVE for any evidence of fractures. Likely costochondritis or due to manipulation during surgery. Continue Lidoderm patch application which has been helping well. (8) Hypocalcemia: (9) Hypovitaminosis D: Plan: Serum calcium 8.3 in the ED. S/p 1g IV calcium gluconate in the ED. Ionized calcium 1.10 and 25-hydroxy vitamin D 17.4; weekly ergocalciferol ordered on 01/24 (may need to increase dose). Will need outpatient vitamin D levels in 6 weeks. Serum calcium 8.2 today - continue to monitor. PTH level 112.1 - likely contributing factor to hypocalcemia ISO prior poor oral intake. Recommend PTH recheck in 6 weeks following discharge. (10) HTN (hypertension): (11) Orthostasis: Plan: Notably orthostatic postoperatively. Now resolved. Suspect cause was multifactorial ISO recent surgical blood loss and prior inadequate oral fluid intake. Continue home antihypertensives plus Lasix with routine BP monitoring and hold parameters. (12) Edema of both lower extremities: Plan: Chronic BLE lymphedema. BLE venous Doppler US obtained which was NEGATIVE. Lasix restarted as per above. (13) Obstructive sleep apnea: (14) Morbid obesity: Plan: Notable noncompliance with CPAP therapy. Continue counseling regarding the importance of CPAP utilization. May utilize supplemental O2 HS while she is sleeping. Has been using 2L NC HS while admitted. Patient does not have any supplemental O2 at home. May need to consider home O2 support HS - discussed with patient. Other Chronic Medical Conditions: HLD/Urge Incontinence/Depression - Continue home medications for these specific conditions. DVT Prophylaxis: Continue warfarin and SQ Lovenox as per above. Code Status: FULL CODE PCP: Hayden Lyman DO Disposition: Possible discharge to [facility] vs. [facility] tomorrow if H/H remains stable with close PCP follow-up. Patient seen in collaboration with Dr. Potter. Please see addendum. I spent a total of 50 minutes coordinating, documenting, and providing care for this patient excluding time spent in the performance of separately billed services or time spent by another provider/QHP. This included personally reviewing all current laboratories and imaging studies, medical reconciliation, outpatient chart review and discussion with specialists. This chart was completed in part utilizing Speech Voice Recognition Software. Grammatical errors, random word insertions, pronoun errors, and incomplete sentences are an occasional consequence of this system due to software limitations, ambient noise, and hardware issues. Any formal questions or concerns about the content, text, or information contained within the body of this dictation should be directly addressed to the provider for clarification. Admission and Anticipated Discharge Date Admission Date: January 23, 2025 Supervising Physician Co-Signing Physician Notes Case reviewed with the advanced practitioner. I have reviewed the advanced practitioner's documentation on the date of service referenced in note, and I agree with, and take responsibility for the plan of care. please refer to her notes for full details patient seen and examined, records reviewed by myself as well diagnoses and plan of care as per advanced practitioner's notes I spent a total of 20 minutes coordinating, documenting, and providing care for this patient, excluding time spent in the performance of separately billed services or time spent by another provider/QHP. Barak Potter MD Subjective Patient seen and examined in room N382-2. NAEO. Laying down in bed. Endorses good pain control in her right arm/shoulder. Stools are still quite dark, almost black, in coloration. Tolerating diet without any issue. Denies any abdominal pain, N/V, chest pain or SOB. Review of Systems Review of Systems: At least ten systems reviewed and negative, except as noted in the subjective section. Physical Exam Physical Exam: General: Elderly, F. Obese body habitus. NAD. Laying down in bed. A&Ox4. Conversing appropriately. HEENT: Normocephalic, atraumatic. Conjunctivae normal. External ear and nose normal, oropharynx normal. Respiratory: Normal respiratory effort. Lungs clear to auscultation bilaterally. On RA. No accessory muscle use. Cardiovascular: Regular rate and rhythm. BLE lymphedema. + BLE TEDs stockings in place. Abdomen/GI: Normoactive bowel sounds, soft, nontender to palpation in all quadrants. Extremities/MSK: + RUE in sling. + R hand swelling improved. No overlying erythema or warmth with palpation of the R hand. + RUE surgical site C/D/I; daya gical sites well approximated and clean. 3/5 RUE strength, 5/5 strength in all other extremities. Uses a walker for ambulation. Palpable peripheral pulses. Neurologic: No overt focal deficits, CN's II-XI not formally tested but appear grossly intact bilaterally. Results & Data Results & Data Vital Signs (Past 12 Hours) Vital Signs Temp Pulse Pulse Resp BP Pulse Ox O2 Del Method 02/02/25 12:53 36.7 C 72 16 111/70 93 Room Air 02/02/25 07:22 36.8 C 73 16 124/84 93 Room Air Laboratory Results Short CBC 02/02/25 Range/Units 07:28 WBC 3.86 L (4.8-10.8) K/ul Hgb 8.4 L (12.0-16.0) g/dl Hct 25.8 L (37.0-47.0) % Plt Count 208 (130-400) K/uL BMP 02/02/25 07:28 Sodium 139 Potassium 4.0 Chloride 105 Carbon Dioxide 31 BUN 13 Creatinine 0.69 Glucose 99 Calcium 8.2 L (1) Fall Encounter type: initial encounter Qualified Code(s): W19.XXXA - Unspecified fall, initial encounter (2) Humerus fracture Encounter type: initial encounter Fracture alignment: displaced Fracture morphology: other fracture Fracture type: closed Humerus Location: proximal Laterality: right Qualified Code(s): S42.291A - Other displaced fracture of upper end of right humerus, initial encounter for closed fracture (3) Anemia Anemia type: unspecified type Qualified Code(s): D64.9 - Anemia, unspecified (5) Gastric ulcer Gastric ulcer chronicity: unspecified ulcer chronicity Gastric ulcer complication status: unspecified whether hemorrhage or perforation present Qualified Code(s): K25.9 - Gastric ulcer, unspecified as acute or chronic, without hemorrhage or perforation (10) HTN (hypertension) Hypertension type: unspecified Qualified Code(s): I10 - Essential (primary) hypertension
[2025-02-02] MEDS: WARFARIN SOD 7.5 MG TAB PO SCH (16:14)
[2025-02-03 07:10] LABS: Hematocrit (blood only) 27.1 % (37.0-47.0); Hemoglobin 8.8 g/dl (12.0-16.0); Mean Corpuscular Hemoglobin 31.4 pg (25.0-34.0); Mean Corpuscular Hgb Conc 32.5 g/dL (32.0-36.0); Mean Corpuscular Volume 96.8 fL (80.0-100.0); Mean Platelet Volume 9.9 fL (9.4-12.4); Platelet Count 223 K/uL (130-400); RDW Coefficient of Variation 14.4 % (11.5-14.5); White Blood Count 3.97 K/ul (4.8-10.8)
[2025-02-03 07:31] LABS: BUN Creatinine Ratio 16.9 (10-20); Calcium 8.3 mg/dl (8.6-10.3); Creatinine Clr Calc Pharmacy 106.4 ml/min
[2025-02-03 07:38] LABS: INR 1.2 (0.9-1.1); Prothrombin Time 12.7 Seconds (9.0-12.0)
--- NOTE | 2025-02-03 16:00 | Hospitalist Progress Note ---
Date of Service February 03, 2025 Assessment & Plan (1) Fall: (2) Humerus fracture: Plan: Jenniffer Dumont is a 74y/o F with PMHx significant for multiple thyroid nodules, HLD, homozygous MTHFR mutation and history of PE anticoagulated on warfarin, ANDRES with CPAP noncompliance, obesity hypoventilation syndrome, HTN, GERD, urge incontinence and depression who is admitted under our service with an acute right proximal humeral shaft fracture in the setting of age-related osteoporosis after sustaining a mechanical fall. S/p right humerus ORIF performed by Dr. Bonner on 01/24. PT/OT recommending rehab placement. Continue PRN pain control. Needs an ortho follow-up appointment in 1-2 weeks. Ortho recommendations include NWB RUE, maintain sling at all times (may be removed briefly for hygiene purposes and ROM exercises). (3) Anemia: (4) Dark stools: (5) Gastric ulcer: Plan: Gradual downtrend in Hgb postoperatively. Surgical blood loss likely contributing. 01/27 CTAP: Negative for any evidence of internal bleeding. Iron deficiency noted on routine anemia panel. Started on oral iron supplementation. 01/28: Noted to have an episode of dark, black stools in the late afternoon. Unsure if due to iron supplementation. GI onboard. FOBT negative on 01/30. Underwent EGD on 01/30. EGD Findings: 2 nonbleeding gastric ulcers with no stigmata of bleeding. Gastric biopsy personally reviewed. Significant gastric inflammation. No evidence of atrophy or intestinal metaplasia. Negative for H. Pylori. Continue IV PPI BID while admitted with transition to po PPI BID on discharge. Will need repeat endoscopy in 6 to 8 weeks to assess healing. Hgb low but overall stabilized at 8.8 today. Suspect ongoing darker stools / effect of iron supplementation. Warfarin resumed on 02/01 per recommendation of GI. INR subtherapeutic at 1.2 today; will give another 7.5mg warfarin today. Continue SQ Lovenox. Continue daily CBC monitoring. (6) History of pulmonary embolism: Plan: History of homozygous MTHFR mutation. Last PE about 7 years ago per patients recollection. 01/26: Hypoxic overnight with increased supplemental O2 requirement. Given PE/DVT history and recent surgery, chest CTA was obtained which was NEGATIVE for PE. Incidentally noted minimal pericardial effusion therefore TTE was obtained. TTE with NO evidence of pericardial effusion; LVEF = >70%, moderate concentric LVH, normal LV wall motion. Warfarin resumed as per above. Follow repeat PT/INR as per above. (7) Rib pain on right side: Plan: Right-sided rib pain under the right breast reported. Right-sided rib XR imaging obtained given the nature of her fall which was NEGATIVE for any evidence of fractures. Likely costochondritis or due to manipulation during surgery. Continue Lidoderm patch application which has been helping well. (8) Hypocalcemia: (9) Hypovitaminosis D: Plan: Serum calcium 8.3 in the ED. S/p 1g IV calcium gluconate in the ED. Ionized calcium 1.10 and 25-hydroxy vitamin D 17.4; weekly ergocalciferol ordered on 01/24 (may need to increase dose). Will need outpatient vitamin D levels in 6 weeks. Serum calcium level slowly improving. PTH level 112.1 - likely contributing factor to hypocalcemia ISO prior poor oral intake. Recommend PTH recheck in 6 weeks following discharge. (10) HTN (hypertension): (11) Orthostasis: Plan: Notably orthostatic postoperatively. Now resolved. Suspect cause was multifactorial ISO recent surgical blood loss and prior inadequate oral fluid intake. Continue home antihypertensives plus Lasix with routine BP monitoring and hold parameters. (12) Edema of both lower extremities: Plan: Chronic BLE lymphedema. BLE venous Doppler US obtained which was NEGATIVE. Lasix restarted as per above. (13) Obstructive sleep apnea: (14) Morbid obesity: Plan: Notable noncompliance with CPAP therapy. Continue counseling regarding the importance of CPAP utilization. May utilize supplemental O2 HS while she is sleeping. Has been using 2L NC HS while admitted. Patient does not have any supplemental O2 at home. May need to consider home O2 support HS - discussed with patient. Other Chronic Medical Conditions: HLD/Urge Incontinence/Depression - Continue home medications for these specific conditions. DVT Prophylaxis: Continue warfarin and SQ Lovenox as per above. Code Status: FULL CODE PCP: Hayden Lyman DO Disposition: Hopeful discharge to [facility] tomorrow if approved - appreciate assistance of CM in this regard. Patient seen in collaboration with Dr. Potter. Please see addendum. I spent a total of 52 minutes coordinating, documenting, and providing care for this patient excluding time spent in the performance of separately billed services or time spent by another provider/QHP. This included personally reviewing all current laboratories and imaging studies, medical reconciliation, outpatient chart review and discussion with specialists. This chart was completed in part utilizing Speech Voice Recognition Software. Grammatical errors, random word insertions, pronoun errors, and incomplete sentences are an occasional consequence of this system due to software limitations, ambient noise, and hardware issues. Any formal questions or concerns about the content, text, or information contained within the body of this dictation should be directly addressed to the provider for clarification. Admission and Anticipated Discharge Date Admission Date: January 23, 2025 Supervising Physician Co-Signing Physician Notes Case reviewed with the advanced practitioner. I have reviewed the advanced practitioner's documentation on the date of service referenced in note, and I agree with, and take responsibility for the plan of care. please refer to her notes for full details patient seen and examined, records reviewed by myself as well diagnoses and plan of care as per advanced practitioner's notes I spent a total of 20 minutes coordinating, documenting, and providing care for this patient, excluding time spent in the performance of separately billed services or time spent by another provider/QHP. Barak Potter MD Subjective Patient seen and examined in room N382-2. NAEO. Sitting up in chair at bedside. Still having some pain in her L ribs s/p fall but seems to be improving with lidocaine patch application. Encouraged her to use ice and heat application on this region as well. Stools are still dark in coloration - suspect 2/2 iron supplementation. FOBT negative on 01/30/25. Reviewed labs from this morning; Hgb stabilized. Tolerating diet without any issues. Denies any SOB, chest pain, abdominal pain or N/V. Minimal pain at surgical site. Remains compliant with using sling for RUE as recommended by ortho. Review of Systems Review of Systems: At least ten systems reviewed and negative, except as noted in the subjective section. Physical Exam Physical Exam: General/Neurologic: Elderly, F. Obese body habitus. NAD. Sitting up in chair at bedside eating breakfast. A&Ox4. Very pleasant and more conversive this morning. Strongly engaged in conversation. Euthymic affect. No overt focal deficits. CN's II-XI not formally tested but appear grossly intact bilaterally. HEENT: Normocephalic, atraumatic. Conjunctivae normal. External ear and nose normal, oropharynx normal. Respiratory: Normal respiratory effort. Lungs clear to auscultation bilaterally. On RA. No accessory muscle use. Cardiovascular: Regular rate and rhythm. BLE lymphedema. + BLE TEDs stockings in place. Abdomen/GI: Normoactive bowel sounds, soft, nontender to palpation in all quadrants. Extremities/MSK: + RUE in sling. + R hand swelling. No overlying erythema or warmth with palpation of the R hand. + RUE surgical site open to air; surgical darleen well approximated and clean/dry. No drainage from surgical site or surrounding erythema. 3/5 RUE strength, 5/5 strength in all other extremities. Uses a walker for ambulation. Palpable peripheral pulses. Results & Data Results & Data Vital Signs (Past 12 Hours) Vital Signs Temp Pulse Resp BP Pulse Ox O2 Del Method 02/03/25 14:11 36.9 C 70 18 109/72 95 Room Air 02/03/25 07:10 36.8 C 69 16 142/85 H 91 Room Air Laboratory Results Short CBC 02/03/25 Range/Units 06:53 WBC 3.97 L (4.8-10.8) K/ul Hgb 8.8 L (12.0-16.0) g/dl Hct 27.1 L (37.0-47.0) % Plt Count 223 (130-400) K/uL BMP 02/03/25 06:53 Sodium 140 Potassium 4.0 Chloride 106 Carbon Dioxide 32 BUN 11 Creatinine 0.65 Glucose 100 H Calcium 8.3 L (1) Fall Encounter type: initial encounter Qualified Code(s): W19.XXXA - Unspecified fall, initial encounter (2) Humerus fracture Encounter type: initial encounter Fracture alignment: displaced Fracture morphology: other fracture Fracture type: closed Humerus Location: proximal Laterality: right Qualified Code(s): S42.291A - Other displaced fracture of upper end of right humerus, initial encounter for closed fracture (3) Anemia Anemia type: unspecified type Qualified Code(s): D64.9 - Anemia, unspecified (5) Gastric ulcer Gastric ulcer chronicity: unspecified ulcer chronicity Gastric ulcer complication status: unspecified whether hemorrhage or perforation present Qualified Code(s): K25.9 - Gastric ulcer, unspecified as acute or chronic, without hemorrhage or perforation (10) HTN (hypertension) Hypertension type: unspecified Qualified Code(s): I10 - Essential (primary) hypertension
[2025-02-04 06:04] LABS: Hematocrit (blood only) 26.7 % (37.0-47.0); Hemoglobin 8.6 g/dl (12.0-16.0); Mean Corpuscular Hemoglobin 31.5 pg (25.0-34.0); Mean Corpuscular Hgb Conc 32.2 g/dL (32.0-36.0); Mean Corpuscular Volume 97.8 fL (80.0-100.0); Mean Platelet Volume 9.9 fL (9.4-12.4); Platelet Count 209 K/uL (130-400); RDW Coefficient of Variation 14.6 % (11.5-14.5); RDW Standard Deviation 51.3 fL (36.4-46.3); Red Blood Count 2.73 M/uL (4.20-5.40); White Blood Count 4.27 K/ul (4.8-10.8)
[2025-02-04 06:23] LABS: BUN Creatinine Ratio 15.4 (10-20); Calcium 7.9 mg/dl (8.6-10.3); Creatinine Clr Calc Pharmacy 88.7 ml/min; Potassium 3.9 mmol/L (3.5-5.1)
[2025-02-04 06:40] LABS: INR 1.5 (0.9-1.1); Prothrombin Time 15.6 Seconds (9.0-12.0)
--- NOTE | 2025-02-04 12:53 | Hospitalist Progress Note ---
Date of Service February 04, 2025 Assessment & Plan (1) Fall: (2) Humerus fracture: Plan: Jenniffer Dumont is a 74y/o F with PMHx significant for multiple thyroid nodules, HLD, homozygous MTHFR mutation and history of PE anticoagulated on warfarin, ANDRES with CPAP noncompliance, obesity hypoventilation syndrome, HTN, GERD, urge incontinence and depression who is admitted under our service with an acute right proximal humeral shaft fracture in the setting of age-related osteoporosis after sustaining a mechanical fall. S/p right humerus ORIF performed by Dr. Bonner on 01/24. PT/OT recommending rehab placement. Continue PRN pain control. Needs an ortho follow-up appointment in 1-2 weeks. Ortho recommendations include NWB RUE, maintain sling at all times (may be removed briefly for hygiene purposes and ROM exercises). (3) Anemia: (4) Dark stools: (5) Gastric ulcer: Plan: Gradual downtrend in Hgb postoperatively. Surgical blood loss likely contributing. 01/27 CTAP: Negative for any evidence of internal bleeding. Iron deficiency noted on routine anemia panel. Started on oral iron supplementation. 01/28: Noted to have an episode of dark, black stools in the late afternoon. Unsure if due to iron supplementation. GI onboard. FOBT negative on 01/30. Underwent EGD on 01/30. EGD Findings: 2 nonbleeding gastric ulcers with no stigmata of bleeding. Gastric biopsy personally reviewed. Significant gastric inflammation. No evidence of atrophy or intestinal metaplasia. Negative for H. Pylori. Continue IV PPI BID while admitted with transition to po PPI BID on discharge. Will need repeat endoscopy in 6 to 8 weeks to assess healing. Hgb low but overall remains stabilized at 8.6today. Suspect ongoing darker stools / effect of iron supplementation. Warfarin resumed on 02/01 per recommendation of GI. INR subtherapeutic at 1.5 today; will give another 7.5mg warfarin today. Continue SQ Lovenox. Continue daily CBC/INR monitoring. (6) History of pulmonary embolism: Plan: History of homozygous MTHFR mutation. Last PE about 7 years ago per patients recollection. 01/26: Hypoxic overnight with increased supplemental O2 requirement. Given PE/DVT history and recent surgery, chest CTA was obtained which was NEGATIVE for PE. Incidentally noted minimal pericardial effusion therefore TTE was obtained. TTE with NO evidence of pericardial effusion; LVEF = >70%, moderate concentric LVH, normal LV wall motion. Warfarin resumed as per above. Follow repeat PT/INR as per above. (7) Rib pain on right side: Plan: Right-sided rib pain under the right breast reported. Right-sided rib XR imaging obtained given the nature of her fall which was NEGATIVE for any evidence of fractures. Likely costochondritis or due to manipulation during surgery. Continue Lidoderm patch application which has been helping well. (8) Hypocalcemia: (9) Hypovitaminosis D: Plan: Serum calcium 8.3 in the ED. S/p 1g IV calcium gluconate in the ED. Ionized calcium 1.10 and 25-hydroxy vitamin D 17.4; weekly ergocalciferol ordered on 01/24 (may need to increase dose). Will need outpatient vitamin D levels in 6 weeks. Serum calcium level slowly improving. PTH level 112.1 - likely contributing factor to hypocalcemia ISO prior poor oral intake. Recommend PTH recheck in 6 weeks following discharge. (10) HTN (hypertension): (11) Orthostasis: Plan: Notably orthostatic postoperatively. Now resolved. Suspect cause was multifactorial ISO recent surgical blood loss and prior inadequate oral fluid intake. Continue home antihypertensives plus Lasix with routine BP monitoring and hold parameters. (12) Edema of both lower extremities: Plan: Chronic BLE lymphedema. BLE venous Doppler US obtained which was NEGATIVE. Lasix restarted as per above. (13) Obstructive sleep apnea: (14) Morbid obesity: Plan: Notable noncompliance with CPAP therapy. Continue counseling regarding the importance of CPAP utilization. May utilize supplemental O2 HS while she is sleeping. Has been using 2L NC HS while admitted. Patient does not have any supplemental O2 at home. May need to consider home O2 support HS - discussed with patient. Other Chronic Medical Conditions: HLD/Urge Incontinence/Depression - Continue home medications for these specific conditions. DVT Prophylaxis: Continue warfarin and SQ Lovenox as per above. Code Status: FULL CODE PCP: Hayden Lyman DO Disposition: Medically stable for discharge. Plan for discharge to [facility] either tomorrow or Sunday pending bed availability. Patient seen in collaboration with Dr. Bernard. Please see addendum. I spent a total of 42 minutes coordinating, documenting, and providing care for this patient excluding time spent in the performance of separately billed services or time spent by another provider/QHP. This included personally reviewing all current laboratories and imaging studies, medical reconciliation, outpatient chart review and discussion with specialists. This chart was completed in part utilizing Speech Voice Recognition Software. Grammatical errors, random word insertions, pronoun errors, and incomplete s entences are an occasional consequence of this system due to software limitations, ambient noise, and hardware issues. Any formal questions or concerns about the content, text, or information contained within the body of this dictation should be directly addressed to the provider for clarification. Admission and Anticipated Discharge Date Admission Date: January 23, 2025 Supervising Physician Co-Signing Physician Notes I have reviewed the advanced practitioner's documentation, and I agree with, and take responsibility for the plan of care I spent a total of 15 minutes coordinating, documenting, and providing care for this patient excluding time spent in the performance of separately billed services. All of the aforementioned completed while collaborating with the assigned advanced practitioner for a full treatment plan Subjective Patient seen and examined in N382-2. NAEO. Feels tired this morning. Pain in RUE well-controlled. Still having some R-sided rib pain which is improving with lidocaine patch application. Had BM this morning. Has been sitting up in the chair at bedside. Tolerating diet without issue. Denies any chest pain, SOB or abdominal pain. Review of Systems Review of Systems: At least ten systems reviewed and negative, except as noted in the subjective section. Physical Exam Physical Exam: General/Neurologic: Elderly, F. Obese body habitus. NAD. Sitting up in chair at bedside. A&Ox4. Engaged in conversation but seems tired. No overt focal deficits. CN's II-XI not formally tested but appear grossly intact bilaterally. HEENT: Normocephalic, atraumatic. Conjunctivae normal. External ear and nose normal, oropharynx normal. Respiratory: Normal respiratory effort. Lungs clear to auscultation bilaterally. On RA. No accessory muscle use. Cardiovascular: Regular rate and rhythm. BLE lymphedema. + BLE TEDs stockings in place. Abdomen/GI: Normoactive bowel sounds, soft, nontender to palpation in all quadrants. Extremities/MSK: + RUE in sling. + R hand swelling. No overlying erythema or warmth with palpation of the R hand. + RUE surgical site open to air; surgical darleen well approximated and clean/dry. No drainage from surgical site or surrounding erythema. 3/5 RUE strength, 5/5 strength in all other extremities. Uses a walker for ambulation. Palpable peripheral pulses. Results & Data Results & Data Vital Signs (Past 12 Hours) Vital Signs Temp Pulse Resp BP Pulse Ox O2 Del Method 02/04/25 08:00 Room Air 02/04/25 07:44 36.6 C 74 18 120/83 95 Room Air Laboratory Results Short CBC 02/04/25 Range/Units 05:46 WBC 4.27 L (4.8-10.8) K/ul Hgb 8.6 L (12.0-16.0) g/dl Hct 26.7 L (37.0-47.0) % Plt Count 209 (130-400) K/uL BMP 02/04/25 05:46 Sodium 141 Potassium 3.9 Chloride 106 Carbon Dioxide 33 H BUN 12 Creatinine 0.78 Glucose 99 Calcium 7.9 L (1) Fall Encounter type: initial encounter Qualified Code(s): W19.XXXA - Unspecified fall, initial encounter (2) Humerus fracture Encounter type: initial encounter Fracture alignment: displaced Fracture morphology: other fracture Fracture type: closed Humerus Location: proximal Laterality: right Qualified Code(s): S42.291A - Other displaced fracture of upper end of right humerus, initial encounter for closed fracture (3) Anemia Anemia type: unspecified type Qualified Code(s): D64.9 - Anemia, unspecified (5) Gastric ulcer Gastric ulcer chronicity: unspecified ulcer chronicity Gastric ulcer complication status: unspecified whether hemorrhage or perforation present Qualified Code(s): K25.9 - Gastric ulcer, unspecified as acute or chronic, without hemorrhage or perforation (10) HTN (hypertension) Hypertension type: unspecified Qualified Code(s): I10 - Essential (primary) hypertension
[2025-02-04 17:28] VITALS: RESP 16
[2025-02-05 08:05] VITALS: BP 106/69; PULSE 60; TEMP 98.1; O2SAT 92
[2025-02-05 08:18] LABS: Hematocrit (blood only) 27.3 % (37.0-47.0); Hemoglobin 8.9 g/dl (12.0-16.0); Mean Corpuscular Hemoglobin 31.8 pg (25.0-34.0); Mean Corpuscular Hgb Conc 32.6 g/dL (32.0-36.0); Mean Corpuscular Volume 97.5 fL (80.0-100.0); Mean Platelet Volume 10.1 fL (9.4-12.4); Platelet Count 233 K/uL (130-400); RDW Coefficient of Variation 14.6 % (11.5-14.5); RDW Standard Deviation 51.5 fL (36.4-46.3); White Blood Count 4.54 K/ul (4.8-10.8)
[2025-02-05 08:44] LABS: BUN Creatinine Ratio 20.6 (10-20); Calcium 8.2 mg/dl (8.6-10.3); Creatinine Clr Calc Pharmacy 101.7 ml/min; Potassium 3.9 mmol/L (3.5-5.1)
--- NOTE | 2025-02-05 10:47 | Orthopedic Progress Note ---
Date of Service February 05, 2025 Assessment & Plan (1) Fall with significant injury: (2) Fracture, humerus, proximal: (3) S/P ORIF (open reduction internal fixation) fracture: Plan 74-year-old woman POD #12 ORIF right humerus; DOS: 01/24/2025. Orthopedically stable. Pain is well-controlled. She is neurologically intact to RUE. Plan: 1. DVT prophylaxis per primary service; Coumadin and Lovenox. 2. Non-WB RUE. Maintain sling at all times, but may be removed briefly for hygiene purposes, and also to come out of to perform elbow, wrist, and digit ROM and retrograde massage. 3. Con't PT/OT as tolerated for mobilization, safety precautions, and teaching ADLs. 4. Pain control doing well with current regimen. 5. Disposition - [facility] rehab later today. 6. Instructed patient today to contact the orthopedic clinic once she is over at the rehab facility, and they should set her up with a visit for next week, week of 02/09/2025, w/ Dr. Bonner's team for staple removal, x-rays, and checkup. Subjective Patient is POD#12 s/p ORIF right humerus by Dr. Bonner on 01/24/2025. Pain remains well-controlled this morning. Denies CP, SOB, N/V, R UE paresthesia. She is having no troubles with use of the right elbow, wrist, or digits. She has been working with PT/OT and doing well with that. Patient says that they are planning to transfer her over to [facility] later today. Review of Systems All systems reviewed & are unremarkable except as noted in HPI & below. Physical Exam GENERAL: AA&Ox3, NAD. Pleasant, affect is calm. Sitting upright in bed with sling donned to RUE, well-fitting. RESPIRATORY: Normal respiratory effort with no signs of distress. CHEST/AXILLA: Chest movement symmetrical. No deformities noted. CARDIOVASCULAR: No edema noted. SKIN: [place], warm and dry. MS/EXTREMITY: Incision site open to air with darleen intact, well-appearing. No active drainage, erythema, or abnormal warmth + wrist/elbow/digit AROM. Median/Ulnar/Radial nerve distributions intact to sensory/motor. Radial pulse intact, 2+. Results & Data Results & Data Laboratory Results . Diagnostic Findings . PG Care Time/CCT Total # of Minutes Spent Total Time Spent with Patient: Total time spent is greater than 50% in coordination of care (as documented) at patient's floor/unit and/or counseling patient: [place] [address] Post Operative Follow-Up Patient Type Established History Problem Focused Exam Problem Focused Medical Decision Making Straight Forward Diagnoses Fall with significant injury W19.XXXA Fracture, humerus, proximal S42.291A Encounter type: initial encounter Fracture alignment: displaced Fracture morphology: other fracture Fracture type: closed Laterality: right S/P ORIF (open reduction internal fixation) fracture Z98.890; Z87.81 (2) Fracture, humerus, proximal Encounter type: initial encounter Fracture alignment: displaced Fracture morphology: other fracture Fracture type: closed Laterality: right Qualified Code(s): S42.291A - Other displaced fracture of upper end of right humerus, initial encounter for closed fracture
--- NOTE | 2025-02-05 10:47 | Discharge Summary ---
Discharge Summary Date of Service February 05, 2025 Principal Dx & Hospital Course #1 = Principal Diagnosis (1) Fall: (2) Humerus fracture: Jenniffer Dumont is a 74y/o F with PMHx significant for multiple thyroid nodules, HLD, homozygous MTHFR mutation and history of PE anticoagulated on warfarin, ANDRES with CPAP noncompliance, obesity hypoventilation syndrome, HTN, GERD, urge incontinence and depression who is admitted under our service with an acute right proximal humeral shaft fracture in the setting of age-related osteoporosis after sustaining a mechanical fall. She is s/p right humerus ORIF performed by Dr. Bonner on 01/24. PT/OT recommending rehab placement. Ortho recommendations include NWB RUE, maintain sling at all times (may be removed briefly for hygiene purposes and ROM exercises). She will follow up in clinic with Dr. Bonner 1-2 weeks from surgery date. Her hospital stay was complicated by Anemia that was initially felt to be 2/2 surgical blood loss. CTAP was negative for any evidence of bleeding. Iron deficiency noted on routine anemia panel. Started on oral iron supplementation. On 01/28: Noted to have an episode of dark, black stools in the late afternoon. GI consulted who performed EGD on 01/30. EGD Findings: 2 nonbleeding gastric ulcers with no stigmata of bleeding. Gastric biopsy personally reviewed. Significant gastric inflammation. No evidence of atrophy or intestinal metaplasia. Negative for H. Pylori. It is recommended she continue PPI BID. She will need repeat endoscopy in 6 to 8 weeks to assess healing. Hgb on day of discharge was 8.9. Warfarin was resumed on 02/01. Her INR is still 1.5. I recommend continuing her 2.5mg sunday and sunday and 5mg all other days. She will be due for her next dose of coumadin on 02/05. SHe follows with [facility] pharmacy Иван Chin. I would recommend reaching out to him for INR monitoring. She has been experiencing R sided rib pain. XR was normal w/o fx and felt to be 2/2 to contusion vs chostochondritis. Her Pain has been controlled with a lidocaine patch and she has not needed any narcotic pain medications. Her Vitamin D was also noted to be low. Her 25-hydroxy vitamin D was 17.4 and she was started on weekly ergocalciferol. She will need outpatient vitamin D levels in 6 weeks. On day of discharge she was in good spirits. She was hemodynamically stable. She was tolerating her sling. She has been moving her bowels regularly with assistance of stool softeners. She is eager to get to rehab. (3) Anemia: (4) Dark stools: (5) Gastric ulcer: (6) History of pulmonary embolism: (7) Rib pain on right side: (8) Hypocalcemia: (9) Hypovitaminosis D: (10) HTN (hypertension): (11) Orthostasis: (12) Edema of both lower extremities: (13) Obstructive sleep apnea: (14) Morbid obesity: Notes For Next Care Provider Please check a CBC, BMP and PT/INR in 3 days. Recommend Vitamin D, calcium and PTH in 6 weeks. Please follow up with PCP and Ashley [facility] Pharmacist upon discharge from rehab. She will need a 6-8 week EGD follow up. Please ensure follow up with Dr. Bonner as scheduled. Medication Changes From Visit 1.) Oral ferrous sulfate 325mg by mouth TWICE daily with meals. This was started due to your low iron levels. 2.) Oral ergocalciferol 1250mg by mouth ONCE A WEEK. This was started due to your low vitamin D levels as mentioned above. 3.) A daily multivitamin was started. 4.) Colace 100mg by mouth twice daily to help maintain regular bowel habits. 5.) Pantoprazole 40mg by mouth twice daily. Please continue this medication until you are directed to stop by your GI provider. You will likely continue this until your repeat EGD to monitor your ulcers Admission HPI Per Admitting Provider 74-year-old female with past medical history significant for multiple thyroid nodules, dyslipidemia, homozygous MTHFR mutation, obesity hypoventilation syndrome, obstructive sleep apnea noncompliant with CPAP, hypertension, morbid obesity, GERD, calculus of gallbladder without cholecystitis, urge incontinence, female stress incontinence, osteoporosis, history of pulmonary embolism, depression is status post fall and right humerus fracture. Patient was coming [facility] the [facility] after shopping and she was carrying a light bag and she thinks she tripped over the curb and she fell on the right shoulder. Did not hit her head. No loss of consciousness. Was not able to get up. Ambulance was called and patient was brought to the hospital. Denies any chest pain prior to fall. Denies any dizziness or blurred vision or nausea or palpitations prior to fall. Currently hemodynamics are okay. Denies any headache. No runny nose or sore throat. Has some cough. No fevers. Denies chest pain or shortness of breath currently. No nausea. No abdominal pain. Normal bowel and bladder movements. Eating and drinking okay. No rash. Prior to fall patient says she could ambulate 1-2 blocks without stopping. Past medical history as mentioned above Past surgical history. Bladder cath insertion. Left breast lesion excision. Cystoscopy. Tonsillectomy. Repair of bladder defect. Total abdominal hysterectomy with removal of tubes. Social history. . No smoking. Alcohol rare wine. No drug use. Family history. Mother had Alzheimer's disease. Father had diabetes. Brother had prostate cancer. Brother had angioplasty. Granddaughter had breast cancer. Admission Exam Per Admitting Provider Physical Exam Physical Exam: General- Not in distress Head- atraumatic Eyes- PERRL. ENT- oropharynx clear Neck- supple, no JVD. Lungs- clear to auscultation no wheezing or crackles Heart- regular rhythm; no murmur, no gallop. Abdomen- normal bowel sounds, soft, nontender, no distension Extremities- right upper ext in sling. bilateral lower extremity edema present Neuro- alert, oriented PERRL, no facial palsy; no dysarthria; obeys simple commands. Discharge Exam Gen: WD/WN, sitting up in bedside chair, NAD, A&O x3 HEENT: Normocephalic, atraumatic, conjunctivae moist, sclerae anicteric, mucous membranes moist. Lung: Clear to Auscultation bilaterally, no wheezes/rales/rhonchi Heart: Regular rate, regular rhythm, b/l chronic lower ext edema Abdomen: Soft, NT, ND +BS x 4 Extremities: RUE sling in place, RUE nonpitting edema Skin: Warm, no rash, negative turgor. Updated Medication List Medication Instructions Recorded Confirmed Type amlodipine 2.5 mg tablet 2.5 mg PO QAM #30 tabs 02/05/25 Rx atorvastatin 40 mg tablet 40 mg PO QAM #30 tabs 02/05/25 Rx cyanocobalamin (vitamin B-12) 1,000 mcg PO QAM #30 tabs 02/05/25 Rx 1,000 mcg tablet (Vitamin B-12) docusate sodium 100 mg capsule 100 mg PO BID #60 caps 02/05/25 Rx ergocalciferol (vitamin D2) 1,250 1,250 mcg PO Sa@0900 #8 caps 02/05/25 Rx mcg (50,000 unit) capsule escitalopram oxalate 10 mg tablet 10 mg PO QAM #30 tabs 02/05/25 Rx ferrous sulfate 325 mg (65 mg 325 mg PO BIDM #60 tabs 02/05/25 Rx iron) tablet,delayed release folic acid 1 mg tablet 1 mg PO QAM #30 tabs 02/05/25 Rx furosemide 20 mg tablet 20 mg PO QAM #30 tabs 02/05/25 Rx lisinopril 20 mg tablet 20 mg PO QAM #30 tabs 02/05/25 Rx mirabegron 50 mg tablet,extended 50 mg PO QAM #30 tabs 02/05/25 Rx release 24 hr (Myrbetriq) multivitamin with folic acid 400 1 tab PO QAM #30 tabs 02/05/25 Rx mcg tablet (Daily-Rossy (with folic acid)) pantoprazole 40 mg tablet,delayed 40 mg PO BID #60 tabs 02/05/25 Rx release warfarin 5 mg tablet 2.5 mg (1/2 x 5 mg) PO 2XWK #30 02/05/25 Rx tabs warfarin 5 mg tablet 5 mg PO 5XWK #30 tabs 02/05/25 Rx Hospital Stay Data Consultations 01/23/25 18:45 ED Decision to Admit Stat 01/24/25 08:00 Consult Orthopedic Surgery Routine 01/29/25 07:49 Consult Gastroenterology Routine Procedures Performed Operation Date: 01/30/25 16:45 Actual Procedures p EGD Biopsy Cytology - Jose De Leon MD Diagnostic Imagining Performed Humerus X-Ray 01/23/25 16:53 EXAM: XR humerus RT 2V CLINICAL HISTORY: Upper arm trauma TECHNIQUE: X-ray images of the right humerus were obtained in anteroposterior (AP) and lateral projections. COMPARISON: No prior studies available for comparison. FINDINGS: Osteopenia Communuted displaced fracture of the proximal humeral shaft There is cortical stepping seen at the surgical neck of the humerus A radiolucent line is seen through the scapular blade may suggests a skin fold. CT study is suggested if wrranted clinically Soft Tissues: Moderate soft tissue edema around the fracture site. Additional Findings: Osteoarthritic changes of the glenohumeral joint. IMPRESSION: Comminuted displaced fracture of the proximal humeral shaft with asscoiated soft tissue swelling Fracture of the surgical neck of the humerus Disclaimer: A subtle bone abnormality or fracture may not be readily apparent on X-rays, thus clinical correlation and further imaging, including follow-up CT, MRI, or follow-up X-rays, are advised as needed. Electronically signed by Duane Thompson 01-23-2025 6:44 PM Shoulder X-Ray 01/23/25 16:53 EXAM: XR shoulder RT min 2V routine CLINICAL HISTORY: Shoulder trauma, no prior imaging TECHNIQUE: X-ray images of the right shoulder were obtained in anteroposterior (AP) and Y-view projections. COMPARISON: No prior studies available for comparison. FINDINGS: Osteopenia. Comminuted displaced fracture of the proximal humeral shaft. There is a cortical stepping/radiolucent line seen at the surgical neck of the humerus. A radiolucent line is seen through the scapular blade may suggests a skin fold. CT study is suggested if warranted clinically. No evidence of shoulder dislocation Soft Tissues: Moderate soft tissue edema around fracture site. Additional Findings: Osteoarthritic changes of the shoulder joint. IMPRESSION: 1. Comminuted displaced fracture of the proximal humeral shaft. 2. Fracture of the surgical neck of the humerus. 3. Moderate soft tissue swelling around the fracture site. 4. No shoulder dislocation. Disclaimer: A subtle bone abnormality or fracture may not be readily apparent on X-rays, thus clinical correlation and further imaging including follow-up CT, MRI, or follow-up X-rays are advised as needed. Electronically signed by Duane Thompson 01-23-2025 6:49 PM Chest X-Ray 01/23/25 21:14 Exam(s): XR CXR 1 VIEW EXAM: XR Chest, 1 View CLINICAL HISTORY: Preop TECHNIQUE: Frontal view of the chest. COMPARISON: Chest radiograph 10/06/2022 FINDINGS: Lungs: Interstitial prominence could represent atelectasis, pulmonary edema or atypical infection. Pleural space: Unremarkable. No pneumothorax. Heart: Cardiomegaly. Mediastinum: Unremarkable. Normal mediastinal contour. Bones/joints: There are degenerative changes of the spine. No acute fracture. IMPRESSION: 1. Interstitial prominence could represent atelectasis, pulmonary edema or atypical infection. 2. Cardiomegaly. Electronically signed by: Veronica Leon MD 01/23/25 23:42 PM Venous Doppler Study 01/23/25 22:23 Exam(s): US VENOUS BILATERAL LOWER EXTREMITIES EXAM: US Duplex Bilateral Lower Extremities Veins CLINICAL HISTORY: Edema TECHNIQUE: Real-time duplex ultrasound scan of the bilateral lower extremity veins integrating B-mode two-dimensional vascular structure, Doppler spectral analysis, color flow Doppler imaging and compression. COMPARISON: No relevant prior studies available. FINDINGS: Right deep veins: Unremarkable. No Deep vein thrombosis in the right common femoral, femoral, proximal deep femoral or popliteal veins. The veins demonstrate normal color flow, are normally compressible, with normal phasic flow and/or augmentation response. Right superficial veins: Unremarkable. No thrombus in the visualized right great saphenous vein. Left deep veins: Unremarkable. No Deep vein thrombosis in the left common femoral, femoral, proximal deep femoral or popliteal veins. The veins demonstrate normal color flow, are normally compressible, with normal phasic flow and/or augmentation response. Left superficial veins: Unremarkable. No thrombus in the visualized left great saphenous vein. Soft tissues: Nonspecific subcutaneous edema bilaterally. No popliteal cyst. IMPRESSION: 1. Nonspecific subcutaneous edema bilaterally. 2. No deep vein thrombosis of either lower extremity. Electronically signed by: Veronica Leon MD 01/24/25 01:15 AM Humerus X-Ray 01/24/25 00:00 FL humerus RT 2V CLINICAL HISTORY: RIGHT PROXIMAL HUMERUS F COMPARISON STUDY: Radiographs 01/24/2020 FLUOROSCOPY TIME: 30 seconds FLUOROSCOPY IMAGES: 4 EXPOSURE DOSE: 3.5 mGy FINDINGS: Status post placement of plate and screw fusion fixating the acute proximal to mid humeral fracture deformity, now with satisfactory alignment. Expected postoperative soft tissue swelling with deep tissue air. No unexpected opaque foreign bodies identified. IMPRESSION: Fluoroscopic assistance as above. ACT 112: Negative or not required by law. Electronically signed by: Robert Vaughn M.D. 01/26/2025 6:51 AM Ribs X-Ray 01/25/25 10:17 EXAM: Radiographs of the Right Ribs 2 Views INDICATION: Postoperative pain TECHNIQUE: Frontal and oblique views of the right ribs. COMPARISON: No relevant prior studies available. FINDINGS: Lungs and pleural spaces: No consolidation or pulmonary edema. No pleural effusion or pneumothorax. Bones/joints: No fracture, erosion or dislocation. Soft tissues: Skin darleen noted along the right humerus. There is a intact well-seated lateral humeral duong with multiple screws. There is a cortical lucency medial cortex mid humeral shaft. Right ribs intact. Degenerative changes noted in the spine. IMPRESSION: 1. Intact right ribs. 2. Postoperative changes right humerus with well-seated intact hardware. ACT 112: N/A Electronically signed by Melba Cho 01-25-2025 11:27 AM Chest CTA 01/26/25 14:35 EXAM: CT angio chest PE protocol CLINICAL HISTORY: PE. TECHNIQUE: Contiguous 3.[address] angiographic images of the chest were acquired with the administration of intravenous contrast. Coronal and sagittal reconstructions were obtained. One of these 3D techniques was utilized: Maximum Intensity Pixel (MIP), 3D Reconstructed Images, Volume Rendered Images, Surface Shaded Rendering. One of the following dose reduction techniques were utilized for this exam: Automated exposure control, adjustment of the mA and/or kV according to patient size, and use of iterative reconstruction. COMPARISON: CR 01/23/2025. CT angio 11/18/2020. FINDINGS: Aorta: Aortic atherosclerotic changes in the form of mild wall thickening, calcifications, and tortuosity. The thoracic aorta is normal in caliber. No evidence of aneurysm, dissection. Aortic arch and descending thoracic aorta are unremarkable. Pulmonary Arteries: Mild dilatation of the central pulmonary arteries. Pulmonary arteries are normal in opacification. No evidence of pulmonary embolism. No stenosis or filling defects. Superior Vena Cava (SVC) and Inferior Vena Cava (IVC): Normal opacification and caliber. No evidence of thrombus or obstruction. Coronary Arteries: Coronary arteries are well-opacified. No significant stenosis or atherosclerotic changes. Mediastinum: Anterior mediastinal small mass measures 2.7x2 cm. Stable. Enlarged left thyroid lobe, with hypodense nodules. Stable. Please correlate with thyroid ultrasound. Heart: Moderate cardiomegaly. Stable. Minimal pericardial effusion. Lungs: Groundglass opacities within the lungs favor atelectasis. Few small lung emphysematous bullae. No evidence of consolidation, nodules, or masses. No pleural effusion or thickening. Bones: No fractures or lytic/sclerotic lesions of the visualized bony structures. Normal alignment and bone density. Thoracic and upper lumbar vertebral degenerative changes. Soft Tissues: Normal appearance of the visualized soft tissues. No abnormal masses or fluid collections. A small hiatal hernia is present. Upper abdomen: Mild perinephric stranding, likely chronic cholecystitis. Small splenule. IMPRESSION: 1. No pulmonary emboli identified. 2. Mild dilatation of the central pulmonary arteries raises the possibility of pulmonary arterial hypertension. 3. Moderate cardiomegaly. 4. Compared to CR 01/23/2025. CT angio 11/18/2020. Stable findings. Electronically signed by Duane Thompson 01-26-2025 5:10 PM Abdomen/Pelvis CT 01/27/25 07:21 CT SCAN OF THE ABDOMEN AND PELVIS WITH IV CONTRAST CLINICAL HISTORY: Fall. Anemia. COMPARISON STUDY: Right upper quadrant ultrasound February 15, 2012. TECHNIQUE: Following the IV administration of 94 cc of Optiray 320, CT scan of the abdomen and pelvis is performed from the lung bases to the proximal femora. Images are reviewed in the axial, sagittal, and coronal planes. IV contrast was administered without complication. A dose lowering technique was utilized adhering to the principles of ALARA. CT DOSE: 1493.32 mGy.cm FINDINGS: Lung bases: The heart is enlarged. There is no pericardial effusion. The lung bases are clear. There is a small hiatal hernia. Liver: The liver morphology is normal and there are no hepatic lesions. There is no intrahepatic biliary ductal dilatation. The hepatic veins and portal veins are patent. No evidence for traumatic injury. Gallbladder: There are gallstones within the gallbladder. Spleen: Normal in size and attenuation. No evidence for traumatic injury. Pancreas: There are no pancreatic lesions. No pancreatic ductal dilatation is present. Adrenal glands: Unremarkable. Kidneys: There are no renal lesions. There is no hydronephrosis. The kidneys enhance symmetrically. There are bilateral renal parapelvic cysts. Excreted contrast from recent contrast-enhanced CT is incidentally noted. Abdominal vasculature: The caliber of the abdominal aorta is normal. Major vasculature is patent. Bowel: The caliber and wall thickness of small and large bowel are normal. The appendix is Peritoneum: There is no intraperitoneal free air or abdominal ascites. Lymphadenopathy: None. Musculoskeletal: No lytic or blastic lesions are seen. No acute fractures are identified. There is moderate body wall edema. IMPRESSION: 1. No acute traumatic findings within the abdomen or pelvis. 2. No retroperitoneal hematoma. 3. Mild body wall edema. 4. Cholelithiasis. ACT 112: Negative or not required by law. Electronically signed by: Wilmer Elizondo M.D. 01/27/2025 8:53 AM Pending Results Patient Have Any Pending Studies at Discharge: No Discharge Instructions Given to Patient (Per Discharging Provider) ayah Foreman were admitted to [facility] for management of a right humerus fracture after sustaining a mechanical fall. You underwent surgical repair of this fracture with Dr. Montrell Bonner on 01/24/2025. Please follow the below postoperative instructions as outlined. Your postoperative course was complicated by anemia. Anemia is a condition where your blood doesn't have enough healthy red blood cells or hemoglobin to carry oxygen to your tissues. This can happen because of low iron levels and/or blood loss. * You underwent an esophagogastroduodenoscopy (also called EGD or upper endoscopy) which is a procedure that examines the inside of the esophagus, stomach and duodenum. You were found to have NON-BLEEDING gastric ulcers. You will need a repeat EGD completed in 6-8 WEEKS to assess healing. This will be arranged by your primary care provider (PCP). * Your warfarin (blood thinner) was initially placed on hold. This medication has since been restarted as your anemia has improved. You will have a PCP hospital discharge follow-up appointment arranged by [facility] to occur within the next 1-2 weeks. You will need repeat lab working, including a complete blood count (CBC), to monitor your anemia. You were also found to have LOW vitamin D and calcium levels. Low vitamin D can lead to low blood calcium levels because vitamin D is crucial for calcium absorption in the gut. You have been started on a vitamin D supplement. * You will need to repeat vitamin D level and parathyroid (PTH) level testing in about 6 weeks. Again, these labs will be ordered by your PCP. It is highly encouraged that you start using your CPAP device at night for your obstructive sleep apnea! You are being discharged to [facility] for further rehabilitation services. MEDICATION CHANGES: 1.) Oral ferrous sulfate 325mg by mouth TWICE daily with meals. This was started due to your low iron levels. 2.) Oral ergocalciferol 1250mg by mouth ONCE A WEEK. This was started due to your low vitamin D levels as mentioned above. 3.) A daily multivitamin was started. 4.) Colace 100mg by mouth twice daily to help maintain regular bowel habits. 5.) Pantoprazole 40mg by mouth twice daily. Please continue this medication until you are directed to stop by your GI provider. You will likely continue this until your repeat EGD to monitor your ulcers RECOMMENDATIONS FOR FOLLOW-UP 1.) A PCP follow-up appointment will be arranged by [facility] as mentioned above. -Your PCP will arrange for you to undergo repeat EGD in 6-8 weeks as mentioned above with [facility] DARBY. 2.) Please follow up with Dr. Bonner of Orthopedics on February 09 as scheduled. It is very important that you attend all of the above follow-up appointments as scheduled! Please take good care of yourself! It has been a pleasure taking care of you. If you have any questions regarding your recent hospitalization please contact [facility] and request a [facility] Hospitalist @ [phone]. Total Time Total Time Spent Total Time Spent (In Minutes): 45 minutes Supervising Physician Co-Signing Physician Notes I have reviewed the advanced practitioner's documentation, and I agree with, and take responsibility for the plan of care I spent a total of 15 minutes coordinating, documenting, and providing care for this patient excluding time spent in the performance of separately billed services. All of the aforementioned completed while collaborating with the assigned advanced practitioner for a full treatment plan
[2025-02-05] MEDS ORDERED: PANTOprazole 40 MG TAB PO SCH (21:00)
== END 2025-02-05 11:10 | DRG 493 ==
LOC: ED 16:41 → 3W 19:58 → SUATTDRO 19:58 → 3W 21:20 → 3N 02-01 18:20